=== PATIENT | female | born 1960 | race Caucasian/White ===

== ENCOUNTER 2022-09-06 10:48 | Inpatient (IN) | payer OTHER ==
--- NOTE | 2022-09-06 11:08 | ED ---
General Adult HPI - General Chief complaint: Syncope Stated complaint: Unresponsive Time Seen by Provider: 09/06/22 10:54 Source: patient, EMS, RN notes reviewed Mode of arrival: EMS Limitations: no limitations - History of Present Illness Initial comments: Patient is a pleasant 62-year-old female presenting to the emergency department for unresponsive episode. Patient was found by family unresponsive and cyanotic. EMS did provide oxygen and one nebulizer treatment with improvement of symptoms. 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 Patient is extremely difficult to understand. Family reports to EMS that her speech is normal for her. - Related Data Allergies Allergy/AdvReac Type Severity Reaction Status Date / Time No Known Allergies Allergy Verified 09/06/22 11:14 Review of Systems ROS Statement: Those systems with pertinent positive or pertinent negative responses have been documented in the HPI. ROS Other: All systems not noted in ROS Statement are negative. Limitations: ROS unobtainable due to patients medical condition Past Medical History Additional Past Medical History / Comment(s): throat cancer being tx since november, R History of Any Multi-Drug Resistant Organisms: None Reported Past Surgical History: Unable to Obtain Smoking Status: Unknown if ever smoked Past Alcohol Use History: Unable to Obtain Past Drug Use History: Unable to Obtain General Exam Limitations: no limitations General appearance: alert, in no apparent distress Head exam: Present: atraumatic Eye exam: Present: other (Right facial weakness that does appear to involve the eyelid) ENT exam: Present: normal oropharynx Neck exam: Present: normal inspection Respiratory exam: Present: normal lung sounds bilaterally Cardiovascular Exam: Present: tachycardia GI/Abdominal exam: Present: soft. Absent: tenderness Extremities exam: Present: pedal edema (+1 bilateral). Absent: calf tenderness Neurological exam: Present: alert Expanded Neurological exam: Present: other (Garbled speech) Motor strength exam: RUE: 5, LUE: 5, RLE: 5, LLE: 5 Eye Response: (4) open spontaneously Motor Response: (6) obeys commands Verbal Response: incomprehensible sounds Psychiatric exam: Present: normal affect, normal mood Skin exam: Present: normal color Course Vital Signs 09/06/22 09/06/22 09/06/22 10:50 12:13 12:30 Temperature 98.2 F Pulse Rate 126 H 105 H 112 H Respiratory 18 15 22 Rate Blood Pressure 132/94 77/49 79/59 O2 Sat by Pulse 98 83 L Oximetry 09/06/22 09/06/22 12:40 13:07 Temperature Pulse Rate 108 H Respiratory Rate Blood Pressure 99/56 74/51 O2 Sat by Pulse 98 Oximetry - Reevaluation(s) Reevaluation #1: 09/06/22 12:40 Patient reevaluated. Patient hypotensive and hypoxic. Patient is 94% on nonrebreather. Family updated and confirms patient's speech is normal. He is made aware of concerns for patient being extremely sick. Patient will be full code at this time. 09/06/22 14:50 There is concern for severe sepsis diagnosed at 1450. Blood culture and lactic acid have been ordered. IV antibiotics have been ordered. Fluid boluses has been provided. EKG Findings - EKG Results: EKG: interpreted by ERMD, sinus rhythm, normal axis, normal QRS, normal ST/T EKG shows: tachycardia Medical Decision Making - Medical Decision Making Patient reevaluated. Patient family is updated. Case also discussed with Dr. eduardo marquez, covering for hospital call, who will admit. Computed tomography scan will be ordered. Patient will go to ICU, Dr. Rose has been paged. cephid has been ordered. - Lab Data Result diagrams: 09/06/22 12:10 09/06/22 12:10 Lab Results 09/06/22 09/06/22 09/06/22 Range/Units 12:10 12:10 12:10 WBC (3.8-10.6) k/uL RBC (3.80-5.40) m/uL Hgb (11.4-16.0) gm/dL Hct (34.0-46.0) % MCV (80.0-100.0) fL MCH (25.0-35.0) pg MCHC (31.0-37.0) g/dL RDW (11.5-15.5) % Plt Count (150-450) k/uL MPV Neutrophils % (Manual) % Band Neuts % (Manual) % Lymphocytes % (Manual) % Monocytes % (Manual) % Metamyelocytes % % Myelocytes % % Neutrophils # (Manual) (1.3-7.7) k/uL Lymphocytes # (Manual) (1.0-4.8) k/uL Monocytes # (Manual) (0-1.0) k/uL Metamyelocytes # (Man) (0) k/uL Myelocytes # (Manual) (0) k/uL Nucleated RBCs (0-0) /100 WBC Manual Slide Review Polychromasia Hypochromasia Poikilocytosis Anisocytosis Macrocytosis PT 13.3 H (9.0-12.0) sec INR 1.3 H (<1.2) APTT 26.9 (22.0-30.0) sec D-Dimer 3.55 H (<0.60) mg/L FEU VBG pH (7.31-7.41) VBG pCO2 (37-51) mmHg VBG HCO3 (24-28) mmol/L Sodium 136 L (137-145) mmol/L Potassium 3.6 (3.5-5.1) mmol/L Chloride 100 (98-107) mmol/L Carbon Dioxide 30 (22-30) mmol/L Anion Gap 6 mmol/L BUN 19 H (7-17) mg/dL Creatinine 0.61 (0.52-1.04) mg/dL Est GFR (CKD-EPI)AfAm >90 (>60 ml/min/1.73 sqM) Est GFR (CKD-EPI)NonAf >90 (>60 ml/min/1.73 sqM) Glucose 94 (74-99) mg/dL POC Glucose (mg/dL) (70-110) mg/dL POC Glu Director [employer] ID Calcium 6.7 L (8.4-10.2) mg/dL Total Bilirubin 0.2 (0.2-1.3) mg/dL AST 41 H (14-36) U/L ALT 20 (4-34) U/L Alkaline Phosphatase 278 H (38-126) U/L Troponin I 0.253 H* (0.000-0.034) ng/mL Total Protein 4.5 L (6.3-8.2) g/dL Albumin 1.9 L (3.5-5.0) g/dL 09/06/22 09/06/22 09/06/22 Range/Units 12:10 12:10 12:24 WBC 36.5 H (3.8-10.6) k/uL RBC 1.89 L (3.80-5.40) m/uL Hgb 6.6 L* (11.4-16.0) gm/dL Hct 21.4 L (34.0-46.0) % MCV 113.4 H (80.0-100.0) fL MCH 35.1 H (25.0-35.0) pg MCHC 30.9 L (31.0-37.0) g/dL RDW 19.6 H (11.5-15.5) % Plt Count 133 L (150-450) k/uL MPV 9.5 Neutrophils % (Manual) 87 % Band Neuts % (Manual) 2 % Lymphocytes % (Manual) 2 % Monocytes % (Manual) 5 % Metamyelocytes % 3 % Myelocytes % 2 % Neutrophils # (Manual) 32.40 H (1.3-7.7) k/uL Lymphocytes # (Manual) 0.73 L (1.0-4.8) k/uL Monocytes # (Manual) 1.83 H (0-1.0) k/uL Metamyelocytes # (Man) 1.10 H (0) k/uL Myelocytes # (Manual) 0.73 H (0) k/uL Nucleated RBCs 3 H (0-0) /100 WBC Manual Slide Review Performed Polychromasia Present Hypochromasia Marked Poikilocytosis Slight Anisocytosis Slight Macrocytosis Marked A PT (9.0-12.0) sec INR (<1.2) APTT (22.0-30.0) sec D-Dimer (<0.60) mg/L FEU VBG pH 7.27 L (7.31-7.41) VBG pCO2 64 H (37-51) mmHg VBG HCO3 29 H (24-28) mmol/L Sodium (137-145) mmol/L Potassium (3.5-5.1) mmol/L Chloride (98-107) mmol/L Carbon Dioxide (22-30) mmol/L Anion Gap mmol/L BUN (7-17) mg/dL Creatinine (0.52-1.04) mg/dL Est GFR (CKD-EPI)AfAm (>60 ml/min/1.73 sqM) Est GFR (CKD-EPI)NonAf (>60 ml/min/1.73 sqM) Glucose (74-99) mg/dL POC Glucose (mg/dL) 88 (70-110) mg/dL POC Glu [employer] ID Maik Rodrigues Calcium (8.4-10.2) mg/dL Total Bilirubin (0.2-1.3) mg/dL AST (14-36) U/L ALT (4-34) U/L Alkaline Phosphatase (38-126) U/L Troponin I (0.000-0.034) ng/mL Total Protein (6.3-8.2) g/dL Albumin (3.5-5.0) g/dL Critical Care Time Critical Care Time: Yes Total Critical Care Time: 33 Disposition Clinical Impression: Pneumonitis, Respiratory failure, Anemia, Throat cancer Disposition: ADMITTED IP TO THIS HOSP Condition: Critical Is patient prescribed a controlled substance at d/c from ED?: No Referrals: None,Stated [Primary Care Provider] - 1-2 days Time of Disposition: 14:50
--- NOTE | 2022-09-06 11:49 | CT ---
EXAMINATION TYPE: CT brain wo con CT DLP: 1103.4 mGycm, Automated exposure control for dose reduction was used. DATE OF EXAM: 09/06/2022 11:33 AM COMPARISON: None. CLINICAL INDICATION:Female, 62 years old with history of Altered mental status, ams. Reported throat cancer. TECHNIQUE: Brain: Multiple axial CT images of the brain were obtained without IV contrast. Coronal sagittal refo rmats reviewed. FINDINGS: Brain: Extra-axial spaces: No abnormal extra-axial fluid collections. Ventricular system: Within normal limits Cerebral parenchyma: Cerebral atrophy. No acute intraparenchymal hemorrhage . Heterogenous masslike a ppearance in the right inferior middle cranial fossa with surrounding osseous structures and extensio n right mandibular space measuring grossly 4.7 x 4.5 x 4 cm. The duran-white junction is well differen tiated. Scattered hypoattenuating areas are seen within the white matter. Cerebellum: Unremarkable. Mass effect: No evidence of midline shift. Intracranial vasculature: Atherosclerotic calcifications of the intracranial vessels. Seems to be enc asement of the right internal carotid artery. Soft tissues: Normal. Calvarium/osseous structures: No depressed skull fracture. Osseous destruction of the right temporal bone and right sphenoid bone. Paranasal sinuses and mastoid air cells: Opacification of the right mastoid air cells. Erosive change s of the posterior wall of the right maxillary sinus. Visualized orbits: Orbital contents are intact. IMPRESSION: 1. No acute intracranial process. 2. Large soft tissue mass within the right middle cranial fossa with inferior extension into the rig ht mandible space with surrounding osseous destruction. This is likely related to reported cancer. Co rrelation with prior imaging is recommended.
--- NOTE | 2022-09-06 11:52 | XR ---
EXAMINATION TYPE: XR chest 2V DATE OF EXAM: 09/06/2022 11:41 AM COMPARISON: None TECHNIQUE: XR chest 2V Frontal and lateral views of the chest. CLINICAL INDICATION:Female, 62 years old with history of altered mental status; reported history of t hroat cancer. FINDINGS: Lungs/Pleura: No pneumothorax. Prominent interstitial lung markings with patchy airspace opacities wi thin the right upper and midlung. Possible right upper lung loculated effusion. Heart/mediastinum: Cardiomediastinal silhouette is unremarkable. Musculoskeletal: No acute osseous pathology. Other findings: None Lines/Tubes: Right chest IJ Mediport catheter with distal tip terminating at the superior cavoatrial junction. IMPRESSION: Diffuse interstitial prominent lung markings with patchy airspace opacities within the right upper an d midlung concerning for an infectious process. Underlying metastatic disease is not excluded.
[2022-09-06 12:26] LABS: Glucose,Whole Blood 88 mg/dL (70-110)
[2022-09-06] MEDS ORDERED: SODIUM CHLORIDE 0.9% 1,000 ML IV STA (12:32)
[2022-09-06 12:50] LABS: VBG PH 7.27 (7.31-7.41)
[2022-09-06] MEDS ORDERED: SODIUM CHLORIDE 0.9% 1,000 ML IV ONE (13:03)
[2022-09-06 13:05] LABS: INR 1.3 (<1.2); Partial Thromboplastin Time 26.9 sec (22.0-30.0); Prothrombin Time 13.3 sec (9.0-12.0)
[2022-09-06 13:09] LABS: Anisocytosis Slight; HCT 21.4 % (34.0-46.0); Hypochromasia Marked; MCH 35.1 pg (25.0-35.0); MCHC 30.9 g/dL (31.0-37.0); MCV 113.4 fL (80.0-100.0); Macrocytosis Marked; Mean Platelet Volume 9.5; Platelet Count 133 k/uL (150-450); Poikilocytosis Slight; RBC 1.89 m/uL (3.80-5.40); RDW 19.6 % (11.5-15.5)
[2022-09-06 13:12] LABS: HGB 6.6 gm/dL (11.4-16.0)
[2022-09-06] MEDS ORDERED: NOREPINEPHRINE 4 MG in SODIUM CHLORIDE 0.9% 250 ML IV ONE (13:13)
[2022-09-06 13:17] LABS: Band Neutrophils % 2 %; Lymphocytes # (M) 0.73 k/uL (1.0-4.8); Metamyelocytes % 3 %; Monocytes # (M) 1.83 k/uL (0-1.0); Myelocytes # (M) 0.73 k/uL (0); Myelocytes % 2 %; Neutrophils % (M) 87 %; Nucleated Red Blood Cells 3 /100 WBC (0-0); Total Cells Counted 200; WBC 36.5 k/uL (3.8-10.6)
[2022-09-06 13:18] LABS: Polychromasia Present
[2022-09-06 13:20] LABS: ALT 20 U/L (4-34); AST 41 U/L (14-36); African American GFR (CKD) >90 (>60 ml/min/1.73 sqM); Albumin 1.9 g/dL (3.5-5.0); Alkaline Phosphatase 278 U/L (38-126); Anion Gap 6 mmol/L; Blood Urea Nitrogen 19 mg/dL (7-17); Calcium 6.7 mg/dL (8.4-10.2); Carbon Dioxide 30 mmol/L (22-30); Chloride 100 mmol/L (98-107); Glucose 94 mg/dL (74-99); Non-African American GFR(CKD) >90 (>60 ml/min/1.73 sqM); Potassium 3.6 mmol/L (3.5-5.1); Sodium 136 mmol/L (137-145); Total Bilirubin 0.2 mg/dL (0.2-1.3); Total Protein 4.5 g/dL (6.3-8.2)
[2022-09-06] MEDS ORDERED: VANCOMYCIN IV PER PHARMACY 1 EACH MISC MISCELLANE PRN ×2 (14:48→18:41)
[2022-09-06] MEDS ORDERED: PIPERACILLIN-TAZOBACTAM 3.375 GM in SODIUM CHLORIDE 0.9% 100 ML IVPB STA (14:48)
[2022-09-06] MEDS ORDERED: ACETAMINOPHEN TAB 325 MG TAB PO PRN (14:52)
[2022-09-06] MEDS ORDERED: NALOXONE 0.4 MG/ML 1 ML VIAL IV PRN (14:52)
[2022-09-06] MEDS ORDERED: IPRATROPIUM-ALBUTEROL 3 ML NEB INHALATION PRN (14:52)
[2022-09-06] MEDS ORDERED: VANCOMYCIN 750 MG in SODIUM CHLORIDE 0.9% 250 ML IVPB ONE (15:30)
--- NOTE | 2022-09-06 16:15 | CT ---
EXAMINATION TYPE: CT angio chest DATE OF EXAM: 09/06/2022 COMPARISON: Radiograph same day HISTORY: 62-year-old female with dyspnea, SOB, elevated d-dimer TECHNIQUE: Contiguous axial scanning of the chest performed with IV Contrast, patient injected with 8 0cc mL of Isovue 370. Coronal/sagittal MIP reconstructions performed. CT DLP: 208.6 mGycm Automated exposure control for dose reduction was used. FINDINGS: Right anterior chest wall injection port with catheter tip at the lower SVC. Heart upper limits of normal in size without pericardial effusion. No reflux of contrast into the hep atic veins. LAD and RCA coronary calcifications are present. There is variant direct takeoff of the left vertebral artery directly from the aortic arch. There corrie ears to be mild to moderate atherosclerotic narrowing at the origin of the left subclavian artery. Suggestion of hilar lymph nodes measuring up to 1.6 cm on the right, 1.8 cm on the left, and 1.5 cm i n the subcarinal region. 8 mm right paratracheal. Satisfactory opacification of the pulmonary arterial system without evidence for pulmonary embolus. There is extensive consolidation throughout the right upper lobe and patchy peripheral areas of airsp yaneth disease throughout the remainder of the lungs. Areas of groundglass and tree-in-bud opacities are present throughout as well. Possible early cavitation right apex and anterior right upper lobe, axial image 67. Endobronchial opa cification scattered throughout the right lower lobe. PEG tube is noted. Otherwise, visualized upper abdomen shows no gross adenopathy. Bones: No osseous destructive process. IMPRESSION: 1. NO EVIDENCE FOR PULMONARY EMBOLUS. 2. SEVERE AIRSPACE DISEASE RIGHT UPPER LOBE. THE REMAINDER OF THE LUNGS ALSO SHOWS EXTENSIVE DISEASE WITH PERIPHERAL OPACITIES, GROUNDGLASS, AND TREE-IN-BUD OPACITIES. POSSIBLE EARLY CAVITARY CHANGE RIG HT APEX AND ANTERIOR RIGHT UPPER LOBE. CORRELATE FOR ATYPICAL MYCOBACTERIAL OR FUNGAL INFECTION, EXTE NSIVE MULTIFOCAL PNEUMONIA, OR ASPIRATION PNEUMONITIS. RECOMMEND FURTHER EVALUATION BY PULMONARY MEDI CINE. 3. SCATTERED ENDOBRONCHIAL OPACIFICATION/MUCOID DEBRIS WITHIN THE LOWER LOBES.
--- NOTE | 2022-09-06 16:18 | P.HPIM ---
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 On arrival to the ER vital signs showed tachycardia with a pulse of 126 initially her blood pressure was normal but quickly dropped to 73/48. Initial laboratory analysis showed white blood cell count 36.5, hemoglobin 6.6, platelets 133, INR 1.3, d-dimer 3.55, troponin 0.253, alkaline phosphatase 278, serum albumin 1.9, calcium 6.7. VBG showed a pH of 7.27 with a pCO2 of 64. Influenza A/B/RSV/COVID-[address] head showed large soft tissue mass in the right middle cranial fossa with extension into the right mandibular space was surrounding osseous structure. CTA of the chest showed severe airspace disease within the right upper lobe with the remainder of the lungs showing extensive disease and tree and bud appearance, possible early cavitary changes in the right aspect packs and right upper lobe. Correlate for atypical mycobacterial or fungal infection or extensive pneumonia. Scattered endobronchial opacifications/mucoid debris in the lower lobes. The ER she was given 2 L of normal saline but remained hypotensive and required levo. She was started on Vanco and Zosyn. One unit of packed red blood cells was ordered. Arrangements are made for admission to the ICU. Dr. Jones was contacted. Patient seen and examined at bedside. Patient is unable to speak and recounts history. had a hard time getting her up this morning at 5 am, then at 9 am she was less responsive with deep respirations. Yesterday she was a little groggy. Had vomiting the last few days. Typically patient has a hard time speaking,but is able to communicate properly via wrting in sentences. Usually walks independently. has to dress her and preform peg tube feedings. He does a ADLS. Squamous cell cancer in the tongue that is now behind the right eye, recent PET scan that was negative except for lesion near eye. Last chemo was [address] Linus Cohen (fax [phone])- record request sent. Tube Feeds: Neutro 2.0- 3 cans daily, free water 8 oz every 4 hours. Pertinent positives and negatives as discussed in HPI, a complete review of systems was performed and all other systems are negative. Vital signs reviewed General: Ill-appearing, moderate distress, appears at stated age Derm: warm, dry Head: Right eye with proptosis, extraocular motion intact on left, no abrasions noted Eyes: EOMI, no lid lag, anicteric sclera, pupils equal round reactive to light ENT: Nose and ears atraumatic, no thrush, no pharyngeal erythema Neck: No thyromegaly, no cervical lymphadenopathy, trachea midline, supple Mouth: no lip lesion, mucus membranes moist Cardiovascular: S1S2 reg, no murmur, positive posterior tibial pulse bilateral, 2+ pitting edema, capillary refill greater than 2 seconds Lungs: Coarse breath sounds bilateral, no wheeze, no accessory muscle use Abdominal: soft, nontender to palpation, no guarding, no appreciable organomegaly, normal bowel sounds Ext: no gross muscle atrophy, no contractures Neuro: Pupil reactive to light on left, unable to test pupil on the right, proptosis of right eye, extraocular motion intact on the left eye, loss of wrinkles on right forehead, patient is unable to open mouth far enough to check for uvula elevation, no tongue deviation noted but patient does not protrude tongue far enough for appropriate evaluation, light touch intact all 4 ext remities, unable to perform finger to nose but moving all 4 extremities independently Psych: Awake, patient is not verbal at baseline, appears euthymic Assessment/Plan: Pneumonia, possible gram-negative or MRSA related with recent chemo Septic shock Acute hypoxic respiratory failure Acute metabolic encephalopathy -Concerns for possible aspiration event with recent vomiting -Victor Manuel Garcia -Serum culture if able -Critical care recommendations case discussed with Dr. Jones -IV fluids -Levo Anemia, unknown cause Thrombocytopenia - possibly chemo related -1 unit packed red blood cells -Follow CBC Severe protein calorie malnutrition -Resume tube feeds in a.m. -Dietitian consultation Squamous cell carcinoma of the tongue with metastasis - attempt to obtain records from oncologist's office -Consult oncology Elevated troponin -Likely secondary to demand ischemia -Repeat troponin -We'll not initiate heparin at this time given no overt signs of chest disc omfort, EKG without signs of ischemia, and hemoglobin 6.6. The patient is admitted with an anticipated greater than 2 midnight stay for evaluation of [Pneumonia with sepsis]. Surrogate decision-maker: CODE STATUS: Full, no prolonged mechanical ventilation DVT prophylaxis: SCDs Discussed with: patient, , ED provider, Dr. Mcdaniel Anticipated discharge date: pending clinical course Anticipated discharge place: pending clinical course A total of 75 minutes was spent on the care of this complex patient more than 50% of the time was spent in counseling and care coordination. 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 with mets to the eye, bellspalsy R History of Any Multi-Drug Resistant Organisms: None Reported Additional Past Surgical History / Comment(s): peg tube, mediprot Smoking Status: Former smoker (quit 2021) Past Alcohol Use History: None Reported (hx of heavy ETOH use till November 2021) Past Drug Use History: Unable to Obtain - Past Family History family Additional Family Medical History / Comment(s): no hx of head and neck cancer at home Medications and Allergies Home Medications Medication Instructions Recorded Confirmed Type Acetaminophen Oral Susp [Tylenol] 480 mg PEG/G-TUBE Q4H 09/06/22 09/06/22 History Famotidine [Pepcid] 20 mg PEG/G-TUBE DAILY PRN 09/06/22 09/06/22 History Gabapentin [Gabapentin Oral Soln] 250 mg PEG/G-TUBE TID 09/06/22 09/06/22 History Loperamide HCl [Loperamide HCl 1.33 mg PEG/G-TUBE Q6H PRN 09/06/22 09/06/22 History Oral Susp] Methadone HCl [Methadone Intensol] 10 mg PEG/G-TUBE Q8H 09/06/22 09/06/22 History Metoclopramide [Reglan] 10 mg PEG/G-TUBE Q6H PRN 09/06/22 09/06/22 History OLANZapine ODT [ZyPREXA ZYDIS] 10 mg PEG/G-TUBE DIRECTED 09/06/22 09/06/22 History Oxycodone 5mg/5ml 15 mg PEG/G-TUBE Q4H 09/06/22 09/06/22 History Allergies Allergy/AdvReac Type Severity Reaction Status Date / Time No Known Allergies Allergy Verified 09/06/22 11:14 Physical Exam Osteopathic Statement: *. No significant issues noted on an osteopathic structural exam other than those noted in the History and Physical/Consult. Vitals: Vital Signs Temp Pulse Resp BP Pulse Ox 09/06/22 15:00 101 H 12 79/54 100 09/06/22 14:00 101 H 11 L 78/54 100 09/06/22 13:07 74/51 09/06/22 12:40 108 H 99/56 98 09/06/22 12:30 112 H 22 79/59 83 L 09/06/22 12:13 105 H 15 77/49 98 09/06/22 10:50 98.2 F 126 H 18 132/94 Intake and Output 09/06/22 09/06/22 09/06/22 06:59 14:59 22:59 Intake Total 2.964 14.366 Balance 2.964 14.366 Intake: Intake, IV Titration 2.964 14.366 Amount Norepinephrine 4 mg In 2.964 14.366 Sodium Chloride 0.9% 250 ml @ 0.03 MCG/KG/MIN 5. 444 mls/hr IV .Q24H ONE Rx#:[id number] Other: Weight 47.627 kg Results CBC & Chem 7: 09/06/22 12:10 09/06/22 12:10 Labs: Abnormal Lab Results - Last 24 Hours (Table) 09/06/22 09/06/22 09/06/22 Range/Units 12:10 12:10 12:10 WBC (3.8-10.6) k/uL RBC (3.80-5.40) m/uL Hgb (11.4-16.0) gm/dL Hct (34.0-46.0) % MCV (80.0-100.0) fL MCH (25.0-35.0) pg MCHC (31.0-37.0) g/dL RDW (11.5-15.5) % Plt Count (150-450) k/uL Neutrophils # (Manual) (1.3-7.7) k/uL Lymphocytes # (Manual) (1.0-4.8) k/uL Monocytes # (Manual) (0-1.0) k/uL Metamyelocytes # (Man) (0) k/uL Myelocytes # (Manual) (0) k/uL Nucleated RBCs (0-0) /100 WBC Macrocytosis PT 13.3 H (9.0-12.0) sec INR 1.3 H (<1.2) D-Dimer 3.55 H (<0.60) mg/L FEU VBG pH (7.31-7.41) VBG pCO2 (37-51) mmHg VBG HCO3 (24-28) mmol/L Sodium 136 L (137-145) mmol/L BUN 19 H (7-17) mg/dL Calcium 6.7 L (8.4-10.2) mg/dL AST 41 H (14-36) U/L Alkaline Phosphatase 278 H (38-126) U/L Troponin I 0.253 H* (0.000-0.034) ng/mL Total Protein 4.5 L (6.3-8.2) g/dL Albumin 1.9 L (3.5-5.0) g/dL 09/06/22 09/06/22 Range/Units 12:10 12:10 WBC 36.5 H (3.8-10.6) k/uL RBC 1.89 L (3.80-5.40) m/uL Hgb 6.6 L* (11.4-16.0) gm/dL Hct 21.4 L (34.0-46.0) % MCV 113.4 H (80.0-100.0) fL MCH 35.1 H (25.0-35.0) pg MCHC 30.9 L (31.0-37.0) g/dL RDW 19.6 H (11.5-15.5) % Plt Count 133 L (150-450) k/uL Neutrophils # (Manual) 32.40 H (1.3-7.7) k/uL Lymphocytes # (Manual) 0.73 L (1.0-4.8) k/uL Monocytes # (Manual) 1.83 H (0-1.0) k/uL Metamyelocytes # (Man) 1.10 H (0) k/uL Myelocytes # (Manual) 0.73 H (0) k/uL Nucleated RBCs 3 H (0-0) /100 WBC Macrocytosis Marked A PT (9.0-12.0) sec INR (<1.2) D-Dimer (<0.60) mg/L FEU VBG pH 7.27 L (7.31-7.41) VBG pCO2 64 H (37-51) mmHg VBG HCO3 29 H (24-28) mmol/L Sodium (137-145) mmol/L BUN (7-17) mg/dL Calcium (8.4-10.2) mg/dL AST (14-36) U/L Alkaline Phosphatase (38-126) U/L Troponin I (0.000-0.034) ng/mL Total Protein (6.3-8.2) g/dL Albumin (3.5-5.0) g/dL
--- NOTE | 2022-09-06 16:45 | P.CNPUL ---
History of Present Illness Consult date: 09/06/22 Requesting physician: Cris Osman Chief complaint: ICU management. History of present illness: Pulmonary/critical care consultation dated 09/06/2022. 62-year-old female seen by Dr. Diego in the emergency room, for loss of consciousness. She was seen initially at 10:48 AM, today. The patient apparently was found to be unresponsive, and EMS was called, she was apparently cyanotic and unresponsive. Oxygen was provided and the patient apparently improved. 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 The patient was very difficult to understand according to the ER physician. Most of the history apparently was obtained from the family member. The patient was discovered to have hypotension, was given 2 L of fluid, and started on norepinephrine. The patient is currently seeing an ER, trauma 2. The patient is on a nonrebreather mask, and getting norepinephrine at 0.061 mcg/kg/m. She was given Zosyn and vancomycin. Home medications included Tylenol, methadone, loperamide, oxycodone, gabapentin, Reglan, Zyprexa, and Pepcid. She has no known ALLERGIES. Laboratory data includes a white count of 36.5, hemoglobin 6.6, hematocrit 2 1.4, and a platelet count of 133,000. PT 13.3, INR 1.3, and d-dimer was 3.55. Venous blood gas showed a CO2 of 64, and a pH is 7.27. Sodium 136, potassium 3.6, chlorides 100, CO2 30, BUN 19, creatinine 0.61. Troponin was 0.253. Albumin 1.9. Testing for influenza, respiratory syncytial virus, and coronavirus, were all negative. Brain CT showed a large soft tissue mass within the right middle cranial fossa with inferior extension into the right mandible space with surrounding osseous destruction. Chest x-ray shows diffuse abnormalities throughout both lungs, more right-sided than left-sided, and more extensive consolidation particularly in the right upper lobe. CT angiogram was negative for pulmonary embolism, but did show bilateral airspace disease, with the greatest degree of consolidation, in the right upper lobe. Review of Systems REVIEW OF SYSTEMS: No review of systems could be obtained from the patient. CONSTITUTIONAL: [Negative.] NEUROLOGIC: Unresponsiveness. HEENT: Right facial droop. CARDIAC: [Negative.] PULMONARY: Cyanosis. GI: [Negative.] : [Negative.] RHEUMATOLOGIC: [ Negative.] IMMUNOLOGIC: [ Negative.] ENDOCRINE: [Negative. 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, bellspalsy R History of Any Multi-Drug Resistant Organisms: None Reported Past Surgical History: Unable to Obtain Additional Past Surgical History / Comment(s): peg tube, mediprot Smoking Status: Former smoker (quit 2021) Past Alcohol Use History: None Reported (hx of heavy ETOH use till November 2021) Past Drug Use History: Unable to Obtain - Past Family History family Additional Family Medical History / Comment(s): no hx of head and neck cancer at home Medications and Allergies Home Medications Medication Instructions Recorded Confirmed Type Acetaminophen Oral Susp [Tylenol] 480 mg PEG/G-TUBE Q4H 09/06/22 09/06/22 History Famotidine [Pepcid] 20 mg PEG/G-TUBE DAILY PRN 09/06/22 09/06/22 History Gabapentin [Gabapentin Oral Soln] 250 mg PEG/G-TUBE TID 09/06/22 09/06/22 History Loperamide HCl [Loperamide HCl 1.33 mg PEG/G-TUBE Q6H PRN 09/06/22 09/06/22 History Oral Susp] Methadone HCl [Methadone Intensol] 10 mg PEG/G-TUBE Q8H 09/06/22 09/06/22 History Metoclopramide [Reglan] 10 mg PEG/G-TUBE Q6H PRN 09/06/22 09/06/22 History OLANZapine ODT [ZyPREXA ZYDIS] 10 mg PEG/G-TUBE DIRECTED 09/06/22 09/06/22 History Oxycodone 5mg/5ml 15 mg PEG/G-TUBE Q4H 09/06/22 09/06/22 History Allergies Allergy/AdvReac Type Severity Reaction Status Date / Time No Known Allergies Allergy Verified 09/06/22 11:14 Physical Exam Osteopathic Statement: *. No significant issues noted on an osteopathic structural exam other than those noted in the History and Physical/Consult. Vitals: Vital Signs Temp Pulse Resp BP Pulse Ox 09/06/22 16:00 101 H 5 L 87/55 93 L 09/06/22 15:00 101 H 12 79/54 100 09/06/22 14:00 101 H 11 L 78/54 100 09/06/22 13:07 74/51 09/06/22 12:40 108 H 99/56 98 09/06/22 12:30 112 H 22 79/59 83 L 09/06/22 12:13 105 H 15 77/49 98 09/06/22 10:50 98.2 F 126 H 18 132/94 Intake and Output 09/06/22 09/06/22 09/06/22 06:59 14:59 22:59 Intake Total 2.964 14.366 Balance 2.964 14.366 Intake: Intake, IV Titration 2.964 14.366 Amount Norepinephrine 4 mg In 2.964 14.366 Sodium Chloride 0.9% 250 ml @ 0.03 MCG/KG/MIN 5. 444 mls/hr IV .Q24H [facility] Rx#:[id number] Other: Weight 47.627 kg No acute distress, poorly responsive, currently on a nonrebreather. HEENT examination reveals a right facial droop. Neck supple. Full range of motion. No adenopathy thyromegaly or neck vein distention. Cardiovascular examination reveals regular rhythm rate. S1-S2 normal. No S3 or S4. No discernible murmur noted. Heart sounds are distant. Heart rate 101 bpm. The patient has a port in the right chest area. Lungs reveal scattered diffuse rhonchi. The patient does not take deep breaths. No wheezes. No crackles. Saturations are 93% on the nonrebreather. Abdomen soft, without bowel sounds. Extremities are intact. No cyanosis or clubbing. 1+ edema is noted in the lower extremities. Skin is without rash or lesion. Neurologic examination cannot be adequately assessed. Results - Laboratory Findings CBC and BMP: 09/06/22 12:10 09/06/22 12:10 PT/INR, D-dimer PT 13.3 sec (9.0-12.0) H 09/06/22 12:10 INR 1.3 (<1.2) H 09/06/22 12:10 D-Dimer 3.55 mg/L FEU (<0.60) H 09/06/22 12:10 Abnormal lab findings: Abnormal Labs 09/06/22 09/06/22 09/06/22 12:10 12:10 12:10 WBC RBC Hgb Hct MCV MCH MCHC RDW Plt Count Neutrophils # (Manual) Lymphocytes # (Manual) Monocytes # (Manual) Metamyelocytes # (Man) Myelocytes # (Manual) Nucleated RBCs Macrocytosis PT 13.3 H INR 1.3 H D-Dimer 3.55 H VBG pH VBG pCO2 VBG HCO3 Sodium 136 L BUN 19 H Calcium 6.7 L AST 41 H Alkaline Phosphatase 278 H Troponin I 0.253 H* Total Protein 4.5 L Albumin 1.9 L 09/06/22 09/06/22 12:10 12:10 WBC 36.5 H RBC 1.89 L Hgb 6.6 L* Hct 21.4 L MCV 113.4 H MCH 35.1 H MCHC 30.9 L RDW 19.6 H Plt Count 133 L Neutrophils # (Manual) 32.40 H Lymphocytes # (Manual) 0.73 L Monocytes # (Manual) 1.83 H Metamyelocytes # (Man) 1.10 H Myelocytes # (Manual) 0.73 H Nucleated RBCs 3 H Macrocytosis Marked A PT INR D-Dimer VBG pH 7.27 L VBG pCO2 64 H VBG HCO3 29 H Sodium BUN Calcium AST Alkaline Phosphatase Troponin I Total Protein Albumin - Diagnostic Findings Chest x-ray: image reviewed Assessment and Plan Assessment: Acute mental status changes, with cyanosis, likely related to sepsis, and extensive bilateral pneumonia. 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 Acute hypotension, secondary to sepsis. Anemia. Thrombocytopenia. Respiratory acidosis. Severe hypoalbuminemia. Plan: Plan dated 09/06/2022. The patient is seen in the emergency department. The patient's currently on norepinephrine. She was given both Zosyn and vancomycin for pneumonia. She is on a nonrebreather mask. The patient was initially found to be unresponsive, with cyanosis. Currently, according to the hospital service, she is a full code. Labs, x-rays, and medications are reviewed. Some consideration should be given to transferring the patient to her facility of record. We will continue to follow make recommendations along the way. Time with Patient: Greater than 30
[2022-09-06] MEDS: IPRATROPIUM-ALBUTEROL 3 ML NEB INHALATION SCH ×3 (17:30→23:49)
[2022-09-06] MEDS ORDERED: bisacodyL 10 MG SUPP RECTAL PRN (18:37)
[2022-09-06] MEDS ORDERED: MORPHINE SULFATE 4 MG/ML SYRINGE IVP PRN (18:37)
[2022-09-06] MEDS ORDERED: LORazepam 2 MG/ML INJ IV PRN (18:37)
[2022-09-06] MEDS ORDERED: ONDANSETRON 4 MG/2 ML VIAL IVP PRN (18:37)
[2022-09-06] MEDS ORDERED: PNEUMONIA PROTOCOL UTILIZED 1 EACH MISC PO PRN (18:37)
[2022-09-06] MEDS ORDERED: MELATONIN 3 MG TABLET PEG/G-TUBE PRN (18:37)
[2022-09-06] MEDS ORDERED: FAMOTIDINE 20 MG TAB PEG/G-TUBE PRN (18:46)
[2022-09-06] MEDS ORDERED: METOCLOPRAMIDE 10 MG TAB PEG/G-TUBE PRN (18:46)
[2022-09-06] MEDS: OXYCODONE PEG/G-TUBE SCH (19:52)
[2022-09-06 21:05] LABS: Glucose,Whole Blood 92 mg/dL (70-110)
[2022-09-06 22:08] LABS: Anisocytosis Moderate; HCT 28.6 % (34.0-46.0); Hypochromasia Marked; MCH 33.8 pg (25.0-35.0); MCHC 32.6 g/dL (31.0-37.0); Macrocytosis Marked; Mean Platelet Volume 8.5; Platelet Count 148 k/uL (150-450); Poikilocytosis Moderate; RBC 2.76 m/uL (3.80-5.40); RDW 23.2 % (11.5-15.5)
[2022-09-06 22:09] LABS: HGB 9.3 gm/dL (11.4-16.0)
[2022-09-06 22:10] LABS: MCV 103.7 fL (80.0-100.0)
[2022-09-06 22:22] LABS: African American GFR (CKD) >90 (>60 ml/min/1.73 sqM); Anion Gap 5 mmol/L; Blood Urea Nitrogen 20 mg/dL (7-17); Calcium 7.4 mg/dL (8.4-10.2); Carbon Dioxide 29 mmol/L (22-30); Chloride 105 mmol/L (98-107); Glucose 88 mg/dL (74-99); Non-African American GFR(CKD) >90 (>60 ml/min/1.73 sqM); Potassium 3.9 mmol/L (3.5-5.1); Sodium 139 mmol/L (137-145)
[2022-09-06] MEDS: GABAPENTIN 300 MG/6 ML PEG/G-TUBE SCH (23:08)
[2022-09-06 23:26] LABS: Metamyelocytes % 2 %; Neutrophils % (M) 93 %; Nucleated Red Blood Cells 3 /100 WBC (0-0); Total Cells Counted 200
[2022-09-06 23:27] LABS: Lymphocytes # (M) 1.71 k/uL (1.0-4.8); Metamyelocytes # (M) 0.86 k/uL (0); Monocytes # (M) 0.86 k/uL (0-1.0); Polychromasia Present; WBC 42.8 k/uL (3.8-10.6)
[2022-09-06] MEDS: PIPERACILLIN-TAZOBACTAM 3.375 GM in SODIUM CHLORIDE 0.9% 100 ML IVPB SCH (23:32)
[2022-09-07] MEDS: OXYCODONE PEG/G-TUBE SCH ×5 (01:15→21:16)
[2022-09-07] MEDS: VANCOMYCIN 750 MG in SODIUM CHLORIDE 0.9% 250 ML IVPB SCH ×2 (05:00→16:24)
[2022-09-07] MEDS: IPRATROPIUM-ALBUTEROL 3 ML NEB INHALATION SCH ×4 (05:15→20:51)
[2022-09-07 06:33] LABS: Anisocytosis Moderate; HCT 28.8 % (34.0-46.0); HGB 9.4 gm/dL (11.4-16.0); Hypochromasia Moderate; MCH 33.7 pg (25.0-35.0); MCHC 32.8 g/dL (31.0-37.0); MCV 102.8 fL (80.0-100.0); Macrocytosis Marked; Mean Platelet Volume 8.8; Platelet Count 138 k/uL (150-450); Poikilocytosis Moderate; RDW 23.6 % (11.5-15.5)
[2022-09-07 06:43] LABS: ALT 18 U/L (4-34); AST 46 U/L (14-36); African American GFR (CKD) >90 (>60 ml/min/1.73 sqM); Albumin 2.1 g/dL (3.5-5.0); Alkaline Phosphatase 336 U/L (38-126); Anion Gap 7 mmol/L; Blood Urea Nitrogen 19 mg/dL (7-17); Calcium 7.5 mg/dL (8.4-10.2); Carbon Dioxide 29 mmol/L (22-30); Chloride 104 mmol/L (98-107); Glucose 84 mg/dL (74-99); Non-African American GFR(CKD) >90 (>60 ml/min/1.73 sqM); Phosphorus 2.9 mg/dL (2.5-4.5); Potassium 3.2 mmol/L (3.5-5.1); Sodium 140 mmol/L (137-145); Total Bilirubin 0.2 mg/dL (0.2-1.3); Total Protein 5.1 g/dL (6.3-8.2)
--- NOTE | 2022-09-07 07:11 | XR ---
EXAMINATION TYPE: XR chest 1V DATE OF EXAM: 09/07/2022 5:28 AM COMPARISON: Chest radiograph from one day prior. TECHNIQUE: XR chest 1V Portable AP radiograph of the chest. CLINICAL INDICATION:Female, 62 years old with history of dyspnea; FINDINGS: Lungs/Pleura: Similar multifocal airspace opacities. More focal area in the right lung apex. No evide nce of pneumothorax or pleural effusion. Pulmonary vascularity: Unremarkable. Heart/mediastinum: Cardiomediastinal silhouette is unremarkable. Musculoskeletal: No acute osseous pathology. Other findings: None Lines/Tubes: Right internal jugular central venous catheter with distal tip at the cavoatrial junction. IMPRESSION: Similar multifocal airspace opacities.
[2022-09-07] MEDS ORDERED: Potassium Replacement Protocol 1 EACH MISC MISCELLANE PRN (07:46)
[2022-09-07 08:12] LABS: Band Neutrophils % 2 %; Lymphocytes # (M) 1.82 k/uL (1.0-4.8); Monocytes # (M) 1.37 k/uL (0-1.0); Myelocytes # (M) 0.46 k/uL (0); Myelocytes % 1 %; Neutrophils % (M) 91 %; Nucleated Red Blood Cells 1 /100 WBC (0-0); Total Cells Counted 200; WBC 45.5 k/uL (3.8-10.6)
[2022-09-07 08:13] LABS: Mixed Population RBC Present; Polychromasia Present
[2022-09-07] MEDS: PANTOPRAZOLE 40 MG/10 ML VIAL IV SCH (08:15)
[2022-09-07] MEDS: PIPERACILLIN-TAZOBACTAM 3.375 GM in SODIUM CHLORIDE 0.9% 100 ML IVPB SCH ×2 (08:15→16:24)
[2022-09-07] MEDS: POTASSIUM BICARBONATE/CIT AC 20 MEQ TABLET.EFF NG-TUBE SCH ×2 (09:10→11:28)
[2022-09-07] MEDS: ENOXAPARIN 40 MG/0.4 ML SYRINGE SQ SCH ×2 (09:10→11:28)
[2022-09-07] MEDS: GABAPENTIN 300 MG/6 ML PEG/G-TUBE SCH (10:51)
--- NOTE | 2022-09-07 11:19 | P.PN ---
Subjective Progress Note Date: 09/07/22 Principal diagnosis: Pneumonia. Pulmonary/critical care consultation dated 09/06/2022. 62-year-old female seen by Dr. Diego in the emergency room, for loss of consciousness. She was seen initially at 10:48 AM, today. The patient apparently was found to be unresponsive, and EMS was called, she was apparently cyanotic and unresponsive. Oxygen was provided and the patient apparently improved. 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 The patient was very difficult to understand according to the ER physician. Most of the history apparently was obtained from the family member. The patient was discovered to have hypotension, was given 2 L of fluid, and started on norepinephrine. The patient is currently seeing an ER, trauma 2. The patient is on a nonrebreather mask, and getting norepinephrine at 0.061 mcg/kg/m. She was given Zosyn and vancomycin. Home medications included Tylenol, methadone, loperamide, oxycodone, gabapentin, Reglan, Zyprexa, and Pepcid. She has no known ALLERGIES. Laboratory data includes a white count of 36.5, hemoglobin 6.6, hematocrit 21.4, and a platelet count of 133,000. PT 13.3, INR 1.3, and d-dimer was 3.55. Venous blood gas showed a CO2 of 64, and a pH is 7.27. Sodium 136, potassium 3.6, chlorides 100, CO2 30, BUN 19, creatinine 0.61. Troponin was 0.253. Albumin 1.9. Testing for influenza, respiratory syncytial virus, and coronavirus, were all negative. Brain CT showed a large soft tissue mass within the right middle cranial fossa with inferior extension into the right mandible space with surrounding osseous destruction. Chest x-ray shows diffuse abnormalities throughout both lungs, more right-sided than left-sided, and more extensive consolidation particularly in the right upper lobe. CT angiogram was negative for pulmonary embolism, but did show bilateral airspace disease, with the greatest degree of consolidation, in the right upper lobe. Progress note dated 09/07/2022. The patient is seen today in room 262. She was seen in consultation yesterday, in the emergency department. She's currently on 6 L of oxygen. She's getting saline at 20 mL an hour, and norepinephrine at 4 mcg/m. She is also on Zosyn and vancomycin diffuse bilateral pneumonia. Clinically, she's about the same. She had an uneventful night according to the nurse. White count 45.5, hemoglobin 9.4, hematocrit 28.8, platelet count 238,000. Opium 140, potassium 3.2, chlorides 104, CO2 29, BUN 19, and creatinine 0.34. The rest of the labs look unremarkable save for an albumin of 2.1. Chest x-ray shows diffuse bilateral airspace disease. Chest x-ray is essentially unchanged, with most of the abnormality occurring in the right upper lobe. Objective - Vital Signs Vital signs: Vital Signs Temp 98.5 F 09/07/22 04:00 Pulse 89 09/07/22 10:00 Resp 14 09/07/22 10:00 BP 120/62 09/07/22 10:00 Pulse Ox 94 L 09/07/22 10:00 FiO2 Intake & Output 09/06/22 09/07/22 09/07/22 18:59 06:59 18:59 Intake Total 33.843 873.381 266.776 Output Total 820 Balance 33.843 53.381 266.776 Weight 47.627 kg 44.2 kg 44.2 kg Intake: IV 455 80 KVO 80 30 Piperacillin-Tazobactam 3 125 50 .375 gm In Sodium Chloride 0.9% 100 ml @ 25 mls/hr IVPB Q8HR [facility] Rx# :[id number] Vancomycin 750 mg In 250 Sodium Chloride 0.9% 250 ml @ 125 mls/hr IVPB ONCE ONE Rx#:[id number] Intake, IV Titration 33.843 108.381 186.776 Amount Norepinephrine 4 mg In 33.843 108.381 111.776 Sodium Chloride 0.9% 250 ml @ 0.03 MCG/KG/MIN 5. 444 mls/hr IV .Q24H [facility] Rx#:[id number] Sodium Chloride 0.9% 1, 75 000 ml @ 75 mls/hr IV . [id number] [facility] Rx#:[id number] Blood Product 0 310 Rc As-1 Unit 0 310 [id number] Output: Urine 820 Other: Voiding Method Bedside Commode # Voids 0 0 # Bowel Movements 0 0 - Exam No acute distress, poorly responsive, currently on 6 L nasal cannula. HEENT examination reveals a right facial droop. Neck supple. Full range of motion. No adenopathy thyromegaly or neck vein distention. Cardiovascular examination reveals regular rhythm rate. S1-S2 normal. No S3 or S4. No discernible murmur noted. Heart sounds are distant. Heart rate 89 bpm. The patient has a port in the right chest area. Lungs reveal scattered diffuse rhonchi. The patient does not take deep breaths. No wheezes. No crackles. Saturations are 94% on 6 L nasal cannula. Abdomen soft, without bowel sounds. Extremities are intact. No cyanosis or clubbing. 1+ edema is noted in the lower extremities. Skin is without rash or lesion. Neurologic examination is unchanged. - Labs CBC & Chem 7: 09/07/22 05:49 09/07/22 05:49 Labs: Abnormal Lab Results - Last 24 Hours (Table) 09/06/22 09/06/22 09/06/22 Range/Units 12:10 12:10 12:10 WBC (3.8-10.6) k/uL RBC (3.80-5.40) m/uL Hgb (11.4-16.0) gm/dL Hct (34.0-46.0) % MCV (80.0-100.0) fL MCH (25.0-35.0) pg MCHC (31.0-37.0) g/dL RDW (11.5-15.5) % Plt Count (150-450) k/uL Neutrophils # (Manual) (1.3-7.7) k/uL Lymphocytes # (Manual) (1.0-4.8) k/uL Monocytes # (Manual) (0-1.0) k/uL Metamyelocytes # (Man) (0) k/uL Myelocytes # (Manual) (0) k/uL Nucleated RBCs (0-0) /100 WBC Macrocytosis PT 13.3 H (9.0-12.0) sec INR 1.3 H (<1.2) D-Dimer 3.55 H (<0.60) mg/L FEU VBG pH (7.31-7.41) VBG pCO2 (37-51) mmHg VBG HCO3 (24-28) mmol/L Sodium 136 L (137-145) mmol/L Potassium (3.5-5.1) mmol/L BUN 19 H (7-17) mg/dL Creatinine (0.52-1.04) mg/dL Plasma Lactic Acid Cornelius (0.7-2.0) mmol/L Calcium 6.7 L (8.4-10.2) mg/dL AST 41 H (14-36) U/L Alkaline Phosphatase 278 H (38-126) U/L Troponin I 0.253 H* (0.000-0.034) ng/mL Total Protein 4.5 L (6.3-8.2) g/dL Albumin 1.9 L (3.5-5.0) g/dL Crossmatch 09/06/22 09/06/22 09/06/22 Range/Units 12:10 12:10 14:49 WBC 36.5 H (3.8-10.6) k/uL RBC 1.89 L (3.80-5.40) m/uL Hgb 6.6 L* (11.4-16.0) gm/dL Hct 21.4 L (34.0-46.0) % MCV 113.4 H (80.0-100.0) fL MCH 35.1 H (25.0-35.0) pg MCHC 30.9 L (31.0-37.0) g/dL RDW 19.6 H (11.5-15.5) % Plt Count 133 L (150-450) k/uL Neutrophils # (Manual) 32.40 H (1.3-7.7) k/uL Lymphocytes # (Manual) 0.73 L (1.0-4.8) k/uL Monocytes # (Manual) 1.83 H (0-1.0) k/uL Metamyelocytes # (Man) 1.10 H (0) k/uL Myelocytes # (Manual) 0.73 H (0) k/uL Nucleated RBCs 3 H (0-0) /100 WBC Macrocytosis Marked A PT (9.0-12.0) sec INR (<1.2) D-Dimer (<0.60) mg/L FEU VBG pH 7.27 L (7.31-7.41) VBG pCO2 64 H (37-51) mmHg VBG HCO3 29 H (24-28) mmol/L Sodium (137-145) mmol/L Potassium (3.5-5.1) mmol/L BUN (7-17) mg/dL Creatinine (0.52-1.04) mg/dL Plasma Lactic Acid Cornelius 4.4 H* (0.7-2.0) mmol/L Calcium (8.4-10.2) mg/dL AST (14-36) U/L Alkaline Phosphatase (38-126) U/L Troponin I (0.000-0.034) ng/mL Total Protein (6.3-8.2) g/dL Albumin (3.5-5.0) g/dL Crossmatch 09/06/22 09/06/22 09/06/22 Range/Units 15:40 21:27 21:27 WBC 42.8 H (3.8-10.6) k/uL RBC 2.76 L (3.80-5.40) m/uL Hgb 9.3 L D (11.4-16.0) gm/dL Hct 28.6 L (34.0-46.0) % MCV 103.7 H D (80.0-100.0) fL MCH (25.0-35.0) pg MCHC (31.0-37.0) g/dL RDW 23.2 H (11.5-15.5) % Plt Count 148 L (150-450) k/uL Neutrophils # (Manual) 39.80 H (1.3-7.7) k/uL Lymphocytes # (Manual) (1.0-4.8) k/uL Monocytes # (Manual) (0-1.0) k/uL Metamyelocytes # (Man) 0.86 H (0) k/uL Myelocytes # (Manual) (0) k/uL Nucleated RBCs 3 H (0-0) /100 WBC Macrocytosis Marked A PT (9.0-12.0) sec INR (<1.2) D-Dimer (<0.60) mg/L FEU VBG pH (7.31-7.41) VBG pCO2 (37-51) mmHg VBG HCO3 (24-28) mmol/L Sodium (137-145) mmol/L Potassium (3.5-5.1) mmol/L BUN (7-17) mg/dL Creatinine (0.52-1.04) mg/dL Plasma Lactic Acid Cornelius (0.7-2.0) mmol/L Calcium (8.4-10.2) mg/dL AST (14-36) U/L Alkaline Phosphatase (38-126) U/L Troponin I 0.221 H* (0.000-0.034) ng/mL Total Protein (6.3-8.2) g/dL Albumin (3.5-5.0) g/dL Crossmatch See Detail 09/06/22 09/07/22 09/07/22 Range/Units 21:27 00:14 05:49 WBC 45.5 H (3.8-10.6) k/uL RBC 2.80 L (3.80-5.40) m/uL Hgb 9.4 L (11.4-16.0) gm/dL Hct 28.8 L (34.0-46.0) % MCV 102.8 H (80.0-100.0) fL MCH (25.0-35.0) pg MCHC (31.0-37.0) g/dL RDW 23.6 H (11.5-15.5) % Plt Count 138 L (150-450) k/uL Neutrophils # (Manual) 42.30 H (1.3-7.7) k/uL Lymphocytes # (Manual) (1.0-4.8) k/uL Monocytes # (Manual) 1.37 H (0-1.0) k/uL Metamyelocytes # (Man) (0) k/uL Myelocytes # (Manual) 0.46 H (0) k/uL Nucleated RBCs 1 H (0-0) /100 WBC Macrocytosis Marked A PT (9.0-12.0) sec INR (<1.2) D-Dimer (<0.60) mg/L FEU VBG pH (7.31-7.41) VBG pCO2 (37-51) mmHg VBG HCO3 (24-28) mmol/L Sodium (137-145) mmol/L Potassium (3.5-5.1) mmol/L BUN 20 H (7-17) mg/dL Creatinine 0.43 L (0.52-1.04) mg/dL Plasma Lactic Acid Cornelius (0.7-2.0) mmol/L Calcium 7.4 L (8.4-10.2) mg/dL AST (14-36) U/L Alkaline Phosphatase (38-126) U/L Troponin I 0.244 H* (0.000-0.034) ng/mL Total Protein (6.3-8.2) g/dL Albumin (3.5-5.0) g/dL Crossmatch 09/07/22 Range/Units 05:49 WBC (3.8-10.6) k/uL RBC (3.80-5.40) m/uL Hgb (11.4-16.0) gm/dL Hct (34.0-46.0) % MCV (80.0-100.0) fL MCH (25.0-35.0) pg MCHC (31.0-37.0) g/dL RDW (11.5-15.5) % Plt Count (150-450) k/uL Neutrophils # (Manual) (1.3-7.7) k/uL Lymphocytes # (Manual) (1.0-4.8) k/uL Monocytes # (Manual) (0-1.0) k/uL Metamyelocytes # (Man) (0) k/uL Myelocytes # (Manual) (0) k/uL Nucleated RBCs (0-0) /100 WBC Macrocytosis PT (9.0-12.0) sec INR (<1.2) D-Dimer (<0.60) mg/L FEU VBG pH (7.31-7.41) VBG pCO2 (37-51) mmHg VBG HCO3 (24-28) mmol/L Sodium (137-145) mmol/L Potassium 3.2 L (3.5-5.1) mmol/L BUN 19 H (7-17) mg/dL Creatinine 0.34 L (0.52-1.04) mg/dL Plasma Lactic Acid Cornelius (0.7-2.0) mmol/L Calcium 7.5 L (8.4-10.2) mg/dL AST 46 H (14-36) U/L Alkaline Phosphatase 336 H (38-126) U/L Troponin I (0.000-0.034) ng/mL Total Protein 5.1 L (6.3-8.2) g/dL Albumin 2.1 L (3.5-5.0) g/dL Crossmatch Assessment and Plan Assessment: Acute mental status changes, with cyanosis, likely related to sepsis, and extensive bilateral pneumonia. 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 Acute hypotension, secondary to sepsis. Anemia. Thrombocytopenia. Respiratory acidosis. Severe hypoalbuminemia. Plan: Plan dated 09/06/2022. The patient is seen in the emergency department. The patient's currently on norepinephrine. She was given both Zosyn and vancomycin for pneumonia. She is on a nonrebreather mask. The patient was initially found to be unresponsive, with cyanosis. Currently, according to the hospital service, she is a full code. Labs, x-rays, and medications are reviewed. Some consideration should be given to transferring the patient to her facility of record. We will continue to follow make recommendations along the way. Plan dated 09/07/2022. The patient is seen today in room 262. The patient is currently on 6 L nasal cannula. She's receiving Zosyn and vancomycin for infection. She remains on norepinephrine at 4 mcg/m. We will continue to follow make recommendations along the way. Overall prognosis is very guarded. The patient is currently a full code. Time with Patient: Greater than 30
[2022-09-07] MEDS: SODIUM CHLORIDE 0.9% 1,000 ML IV SCH (11:30)
--- NOTE | 2022-09-07 12:03 | P.CONS ---
History of Present Illness - Reason for Consult Consult date: 09/07/22 - Chief Complaint Weakness - History of Present Illness Ms. 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 She was noted by her have increased weakness and and decreased alertness yesterday prior to presentation. On presentation, she was found to be hypotensive, tachycardic, and hypoxic with blood pressure 73/48, heart rate 126, saturation 83%. CBC noted more blood cell count 42.8 (image for count 39.8, absolute monocyte count 0.86), hemoglobin 9.3, and platelet count 48. BMP noted no evidence of acute metabolic abnormalities. CT of the brain revealed no intracranial metastases, but did notice large soft tissue mass in the right middle cranial fossa measuring 4.7 x 4.5 cm with inferior extension to the right mandibular space along with surrounding osseous destruction. CT PE revealed no evidence of pulmonary embolism, but did note extensive airspace disease in the right upper lobe. The lungs bilaterally are noted to have extensive disease with peripheral opacities, groundglass opacities, and treatment but opacities. There was concern for a cavitary changes in the right apex and the anterior right upper lobe concerning for potential atypical mycobacterium or fungal infection or multifocal pneumonia. She was started on vancomycin and Zosyn along with norepinephrine and admitted to the ICU for additional management. On examination today, she is alert and able to interact appropriately with me today. She notes having had 2 cycles of IV treatments, but she is unsure what those treatments were. She notes that her last treatment was approximately 3 we eks ago. Prior to admission, she notes feeling fine without any dyspnea, fevers, chills, nausea, vomiting, or diarrhea. She is currently on 4-6 L nasal cannula with current norepinephrine concentration is at 0.07 mg/kg/m. 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, bellspalsy R History of Any Multi-Drug Resistant Organisms: None Reported Past Surgical History: Unable to Obtain Additional Past Surgical History / Comment(s): peg tube, mediprot Past Anesthesia/Blood Transfusion Reactions: No Reported Reaction Past Psychological History: No Psychological Hx Reported Smoking Status: Former smoker Past Alcohol Use History: None Reported Past Drug Use History: Unable to Obtain - Past Family History family Additional Family Medical History / Comment(s): no hx of head and neck cancer at home Medications and Allergies Home Medications Medication Instructions Recorded Confirmed Type Acetaminophen Oral Susp [Tylenol] 480 mg PEG/G-TUBE Q4H 09/06/22 09/06/22 History Famotidine [Pepcid] 20 mg PEG/G-TUBE DAILY PRN 09/06/22 09/06/22 History Gabapentin [Gabapentin Oral Soln] 250 mg PEG/G-TUBE TID 09/06/22 09/06/22 H istory Loperamide HCl [Loperamide HCl 1.33 mg PEG/G-TUBE Q6H PRN 09/06/22 09/06/22 History Oral Susp] Methadone HCl [Methadone Intensol] 10 mg PEG/G-TUBE Q8H 09/06/22 09/06/22 History Metoclopramide [Reglan] 10 mg PEG/G-TUBE Q6H PRN 09/06/22 09/06/22 History OLANZapine ODT [ZyPREXA ZYDIS] 10 mg PEG/G-TUBE DIRECTED 09/06/22 09/06/22 History Oxycodone 5mg/5ml 15 mg PEG/G-TUBE Q4H 09/06/22 09/06/22 History Allergies Allergy/AdvReac Type Severity Reaction Status Date / Time No Known Allergies Allergy Verified 09/06/22 11:14 Physical Exam Vitals: Vital Signs Temp Pulse Pulse Resp BP BP Pulse Ox 09/07/22 11:00 105 H 17 123/68 91 L 09/07/22 10:30 93 13 106/58 93 L 09/07/22 10:00 89 14 120/62 94 L 09/07/22 09:30 89 10 L 110/63 94 L 09/07/22 09:00 89 14 110/57 98 09/07/22 08:30 89 17 100/50 98 09/07/22 08:00 92 16 109/61 98 09/07/22 06:00 98 16 114/61 95 09/07/22 05:28 89 09/07/22 05:15 89 96 12/31/22 05:00 93 15 113/60 95 09/07/22 04:00 98.5 F 94 109/72 96 09/07/22 03:00 115/63 09/07/22 02:00 104/63 95 09/07/22 01:00 92 14 100/55 98 09/07/22 00:00 93 15 91/53 98 09/06/22 23:49 98 94 L 09/06/22 23:00 95 15 76/45 95 09/06/22 22:00 103 H 09/06/22 21:40 98.4 F 98 15 79/53 96 09/06/22 21:00 93/57 09/06/22 20:00 98.2 F 105 H 14 83/55 89 L 09/06/22 19:35 98 F 104 H 18 83/55 94 L 09/06/22 19:00 108 H 21 82/58 90 L 09/06/22 18:17 105 H 17 83/56 98 09/06/22 18:00 105 H 14 84/56 99 09/06/22 17:44 106 H 09/06/22 17:36 97.3 F L 105 H 18 84/56 98 09/06/22 17:33 104 H 09/06/22 17:16 98 F 103 H 18 83/62 96 09/06/22 17:05 99.0 F 103 H 16 79/52 96 09/06/22 17:00 102 H 13 75/54 96 09/06/22 16:00 101 H 5 L 87/55 93 L 09/06/22 15:00 101 H 12 79/54 100 09/06/22 14:00 101 H 11 L 78/54 100 09/06/22 13:07 74/51 09/06/22 12:40 108 H 99/56 98 09/06/22 12:30 112 H 22 79/59 83 L 09/06/22 12:13 105 H 15 77/49 98 Intake and Output 09/06/22 09/07/22 09/07/22 22:59 06:59 14:59 Intake Total 414.177 490.083 291.776 Output Total 820 Balance 414.177 -329.917 291.776 Intake: IV 455 105 KVO 80 30 Piperacillin-Tazobactam 3 125 75 .375 gm In Sodium Chloride 0.9% 100 ml @ 25 mls/hr IVPB Q8HR [facility] Rx# :[id number] Vancomycin 750 mg In 250 Sodium Chloride 0.9% 250 ml @ 125 mls/hr IVPB ONCE ONE Rx#:[id number] Intake, IV Titration 104.177 35.083 186.776 Amount Norepinephrine 4 mg In 104.177 35.083 111.776 Sodium Chloride 0.9% 250 ml @ 0.03 MCG/KG/MIN 5. 444 mls/hr IV .Q24H ONE Rx#:[id number] Sodium Chloride 0.9% 1, 75 000 ml @ 75 mls/hr IV . [id number] [facility] Rx#:[id number] Blood Product 310 Rc As-1 Unit 310 [id number] Output: Urine 820 Other: Voiding Method Bedside Commode Bedside Commode # Voids 0 0 0 # Bowel Movements 0 0 Weight 47.627 kg 44.2 kg 44.2 kg - Constitutional General appearance: average body habitus, no acute distress - EENT Periorbital edema of the right eye compared to the left - Respiratory Respiratory: bilateral: rhonchi, other (Inspiratory crackles) - Cardiovascular Rhythm: regular - Gastrointestinal Feeding tube surrounded by dry gauze General gastrointestinal: no distended, normal bowel sounds, soft, no tenderness - Integumentary Integumentary: no rash - Neurologic Right eyelid droop compared to the left - Psychiatric Psychiatric: appropriate affect Results CBC & Chem 7: 09/07/22 05:49 09/07/22 05:49 Labs: Abnormal Lab Results - Last 24 Hours (Table) 09/06/22 09/06/22 09/06/22 Range/Units 12:10 12:10 12:10 WBC (3.8-10.6) k/uL RBC (3.80-5.40) m/uL Hgb (11.4-16.0) gm/dL Hct (34.0-46.0) % MCV (80.0-100.0) fL MCH (25.0-35.0) pg MCHC (31.0-37.0) g/dL RDW (11.5-15.5) % Plt Count (150-450) k/uL Neutrophils # (Manual) (1.3-7.7) k/uL Lymphocytes # (Manual) (1.0-4.8) k/uL Monocytes # (Manual) (0-1.0) k/uL Metamyelocytes # (Man) (0) k/uL Myelocytes # (Manual) (0) k/uL Nucleated RBCs (0-0) /100 WBC Macrocytosis PT 13.3 H (9.0-12.0) sec INR 1.3 H (<1.2) D-Dimer 3.55 H (<0.60) mg/L FEU VBG pH (7.31-7.41) VBG pCO2 (37-51) mmHg VBG HCO3 (24-28) mmol/L Sodium 136 L (137-145) mmol/L Potassium (3.5-5.1) mmol/L BUN 19 H (7-17) mg/dL Creatinine (0.52-1.04) mg/dL Plasma Lactic Acid Cornelius (0.7-2.0) mmol/L Calcium 6.7 L (8.4-10.2) mg/dL AST 41 H (14-36) U/L Alkaline Phosphatase 278 H (38-126) U/L Troponin I 0.253 H* (0.000-0.034) ng/mL Total Protein 4.5 L (6.3-8.2) g/dL Albumin 1.9 L (3.5-5.0) g/dL Crossmatch 09/06/22 09/06/22 09/06/22 Range/Units 12:10 12:10 14:49 WBC 36.5 H (3.8-10.6) k/uL RBC 1.89 L (3.80-5.40) m/uL Hgb 6.6 L* (11.4-16.0) gm/dL Hct 21.4 L (34.0-46.0) % MCV 113.4 H (80.0-100.0) fL MCH 35.1 H (25.0-35.0) pg MCHC 30.9 L (31.0-37.0) g/dL RDW 19.6 H (11.5-15.5) % Plt Count 133 L (150-450) k/uL Neutrophils # (Manual) 32.40 H (1.3-7.7) k/uL Lymphocytes # (Manual) 0.73 L (1.0-4.8) k/uL Monocytes # (Manual) 1.83 H (0-1.0) k/uL Metamyelocytes # (Man) 1.10 H (0) k/uL Myelocytes # (Manual) 0.73 H (0) k/uL Nucleated RBCs 3 H (0-0) /100 WBC Macrocytosis Marked A PT (9.0-12.0) sec INR (<1.2) D-Dimer (<0.60) mg/L FEU VBG pH 7.27 L (7.31-7.41) VBG pCO2 64 H (37-51) mmHg VBG HCO3 29 H (24-28) mmol/L Sodium (137-145) mmol/L Potassium (3.5-5.1) mmol/L BUN (7-17) mg/dL Creatinine (0.52-1.04) mg/dL Plasma Lactic Acid Cornelius 4.4 H* (0.7-2.0) mmol/L Calcium (8.4-10.2) mg/dL AST (14-36) U/L Alkaline Phosphatase (38-126) U/L Troponin I (0.000-0.034) ng/mL Total Protein (6.3-8.2) g/dL Albumin (3.5-5.0) g/dL Crossmatch 09/06/22 09/06/22 09/06/22 Range/Units 15:40 21:27 21:27 WBC 42.8 H (3.8-10.6) k/uL RBC 2.76 L (3.80-5.40) m/uL Hgb 9.3 L D (11.4-16.0) gm/dL Hct 28.6 L (34.0-46.0) % MCV 103.7 H D (80.0-100.0) fL MCH (25.0-35.0) pg MCHC (31.0-37.0) g/dL RDW 23.2 H (11.5-15.5) % Plt Count 148 L (150-450) k/uL Neutrophils # (Manual) 39.80 H (1.3-7.7) k/uL Lymphocytes # (Manual) (1.0-4.8) k/uL Monocytes # (Manual) (0-1.0) k/uL Metamyelocytes # (Man) 0.86 H (0) k/uL Myelocytes # (Manual) (0) k/uL Nucleated RBCs 3 H (0-0) /100 WBC Macrocytosis Marked A PT (9.0-12.0) sec INR (<1.2) D-Dimer (<0.60) mg/L FEU VBG pH (7.31-7.41) VBG pCO2 (37-51) mmHg VBG HCO3 (24-28) mmol/L Sodium (137-145) mmol/L Potassium (3.5-5.1) mmol/L BUN (7-17) mg/dL Creatinine (0.52-1.04) mg/dL Plasma Lactic Acid Cornelius (0.7-2.0) mmol/L Calcium (8.4-10.2) mg/dL AST (14-36) U/L Alkaline Phosphatase (38-126) U/L Troponin I 0.221 H* (0.000-0.034) ng/mL Total Protein (6.3-8.2) g/dL Albumin (3.5-5.0) g/dL Crossmatch See Detail 09/06/22 09/07/22 09/07/22 Range/Units 21:27 00:14 05:49 WBC 45.5 H (3.8-10.6) k/uL RBC 2.80 L (3.80-5.40) m/uL Hgb 9.4 L (11.4-16.0) gm/dL Hct 28.8 L (34.0-46.0) % MCV 102.8 H (80.0-100.0) fL MCH (25.0-35.0) pg MCHC (31.0-37.0) g/dL RDW 23.6 H (11.5-15.5) % Plt Count 138 L (150-450) k/uL Neutrophils # (Manual) 42.30 H (1.3-7.7) k/uL Lymphocytes # (Manual) (1.0-4.8) k/uL Monocytes # (Manual) 1.37 H (0-1.0) k/uL Metamyelocytes # (Man) (0) k/uL Myelocytes # (Manual) 0.46 H (0) k/uL Nucleated RBCs 1 H (0-0) /100 WBC Macrocytosis Marked A PT (9.0-12.0) sec INR (<1.2) D-Dimer (<0.60) mg/L FEU VBG pH (7.31-7.41) VBG pCO2 (37-51) mmHg VBG HCO3 (24-28) mmol/L Sodium (137-145) mmol/L Potassium (3.5-5.1) mmol/L BUN 20 H (7-17) mg/dL Creatinine 0.43 L (0.52-1.04) mg/dL Plasma Lactic Acid Cornelius (0.7-2.0) mmol/L Calcium 7.4 L (8.4-10.2) mg/dL AST (14-36) U/L Alkaline Phosphatase (38-126) U/L Troponin I 0.244 H* (0.000-0.034) ng/mL Total Protein (6.3-8.2) g/dL Albumin (3.5-5.0) g/dL Crossmatch 09/07/22 Range/Units 05:49 WBC (3.8-10.6) k/uL RBC (3.80-5.40) m/uL Hgb (11.4-16.0) gm/dL Hct (34.0-46.0) % MCV (80.0-100.0) fL MCH (25.0-35.0) pg MCHC (31.0-37.0) g/dL RDW (11.5-15.5) % Plt Count (150-450) k/uL Neutrophils # (Manual) (1.3-7.7) k/uL Lymphocytes # (Manual) (1.0-4.8) k/uL Monocytes # (Manual) (0-1.0) k/uL Metamyelocytes # (Man) (0) k/uL Myelocytes # (Manual) (0) k/uL Nucleated RBCs (0-0) /100 WBC Macrocytosis PT (9.0-12.0) sec INR (<1.2) D-Dimer (<0.60) mg/L FEU VBG pH (7.31-7.41) VBG pCO2 (37-51) mmHg VBG HCO3 (24-28) mmol/L Sodium (137-145) mmol/L Potassium 3.2 L (3.5-5.1) mmol/L BUN 19 H (7-17) mg/dL Creatinine 0.34 L (0.52-1.04) mg/dL Plasma Lactic Acid Cornelius (0.7-2.0) mmol/L Calcium 7.5 L (8.4-10.2) mg/dL AST 46 H (14-36) U/L Alkaline Phosphatase 336 H (38-126) U/L Troponin I (0.000-0.034) ng/mL Total Protein 5.1 L (6.3-8.2) g/dL Albumin 2.1 L (3.5-5.0) g/dL Crossmatch Assessment and Plan Assessment: Ms. Augustin is a 62-year-old female with a past medical history significant for squamous cell carcinoma of the tongue with potential metastasis to the right eye currently on systemic treatment of unclear etiology who presented with acute metabolic encephalopathy found to have acute hypoxic respiratory failure secondary to multifocal pneumonia. (1) Multifocal pneumonia Current Visit: Yes Status: Acute Code(s): J18.9 - PNEUMONIA, UNSPECIFIED ORGANISM SNOMED Code(s): 275885128 (2) Cancer of tongue Current Visit: Yes Status: Acute Code(s): C02.9 - MALIGNANT NEOPLASM OF TONGUE, UNSPECIFIED SNOMED Code(s): 263452326 (3) Anemia Current Visit: Yes Status: Acute Code(s): D64.9 - ANEMIA, UNSPECIFIED SNOMED Code(s): 013338448 Plan: #Squamous cell carcinoma of the tongue -Per as documented in the medical records, she has metastasis to the right eye -She receives her care with Dr. 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 Augustin Notes having received 2 cycles of treatment so far -She did inquire whether her treatment was working or not -June that I did not have sufficient information at this time to make that assessment. In addition, 2 cycles of treatment would typically not be sufficient in order to assess treatment response -No acute interventions from an oncologic standpoint at this time -Once medical records are available, these can be reviewed. Her oncologic history at this time is unlikely to change current management being pursued -She'll need outpatient follow-up with her primary oncologist Dr. Cohen #Multifocal pneumonia -Complicated by acute hypoxic respiratory failure and septic shock requiring supplemental oxygen through-flow nasal cannula and norepinephrine treatment -CT PE reveals bilateral consolidations, groundglass opacities, and tree-in-bud opacities with no evidence of pulmonary embolism -This is likely a complication of systemic treatment for her squamous cell carcinoma of the tongue -Started on vancomycin and Zosyn and appears to be clinically improving -Continue broad-spectrum antibiotics -Follow-up infectious workup ordered on admission including blood cultures, UA with reflux culture, and sputum culture -If she clinically worsens, infectious disease consult should be considered given the extent of the infection on imaging #Macrocytic anemia -Likely multifactorial due to systemic treatment with chemotherapy along with anemia of inflammation secondary to current infection -At this time, we will hold on pursuing broad anemia workup given the likely component of inflammation due to infection -If she continues to have persistent anemia and that does not improve, further workup would be reasonable at that time -Anticipate her anemia to improve as she clinically improves from an infection standpoint
[2022-09-07] MEDS: NOREPINEPHRINE 4 MG in SODIUM CHLORIDE 0.9% 250 ML IV SCH (13:43)
[2022-09-07] MEDS: GABAPENTIN 250 MG/5 ML PEG/G-TUBE SCH ×2 (16:25→21:16)
[2022-09-07] MEDS: METHADONE 10 MG/ML PO SCH (17:30)
--- NOTE | 2022-09-07 19:34 | P.PN ---
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 On arrival to the ER vital signs showed tachycardia with a pulse of 126 initially her blood pressure was normal but quickly dropped to 73/48. Initial laboratory analysis showed white blood cell count 36.5, hemoglobin 6.6, platelets 133, INR 1.3, d-dimer 3.55, troponin 0.253, alkaline phosphatase 278, serum albumin 1.9, calcium 6.7. VBG showed a pH of 7.27 with a pCO2 of 64. Influenza A/B/RSV/COVID-[address] head showed large soft tissue mass in the right middle cranial fossa with extension into the right mandibular space was surrounding osseous structure. CTA of the chest showed severe airspace disease within the right upper lobe with the remainder of the lungs showing extensive disease and tree and bud appearance, possible early cavitary changes in the right aspect packs and right upper lobe. Correlate for atypical mycobacterial or fungal infection or extensive pneumonia. Scattered endobronchial opacifications/mucoid debris in the lower lobes. The ER she was given 2 L of normal saline but remained hypotensive and required levo. She was started on Vanco and Zosyn. One unit of packed red blood cells was ordered. Arrangements are made for admission to the ICU. She continued to do better and became awake. Oncology was consulted. Patient seen and examined at bedside. She is more awake and alert today. She is communicative. She denies chest pain or shortness of breath. General: nontoxic, no distress, appears at stated age Derm: warm, dry Head: atraumatic, normocephalic, symmetric Eyes: EOMI, no lid lag, anicteric sclera Mouth: no lip lesion, mucus membranes moist Cardiovascular: S1S2 reg, no murmur, positive posterior tibial pulse bilateral, Lungs: Coarse breath sounds bilateral, no rhonchi, no rales , no accessory muscle use Abdominal: soft, nontender to palpation, no guarding, no appreciable organomegaly Ext: no gross muscle atrophy, no edema, no contractures Neuro: CN II-XI grossly intact, no focal neuro deficits Psych: Alert, oriented, appropriate affect Assessment/Plan: Pneumonia, possible gram-negative or MRSA related with recent chemo Septic shock Acute hypoxic respiratory failure Acute metabolic encephalopathy, resolved -Concerns for possible aspiration event with recent vomiting -continue David Garcian -Serum culture if able -Critical care recs -IV fluids -Levo wean as able - if worsening conisder infectious disease consult - Infiltrate may be related to systemic treatment of cancer per discussion with oncolpogy Anemia, unknown cause Thrombocytopenia - possibly chemo related - s/p 1 unit packed red blood cells -Follow CBC Severe protein calorie malnutrition -Dietitian recs, D/C dietitain and TF reordered 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 Mcdaniel Anticipated discharge date: pending clinical course Anticipated discharge place: pending clinical course A total of 35 minutes was spent on the care of this complex patient more than 50% of the time was spent in counseling and care coordination. Active Medications Generic Name Dose Route Start Last Admin Trade Name Freq PRN Reason Stop Dose Admin Acetaminophen 650 mg 09/06/22 14:52 Acetaminophen Tab 325 Mg Tab PO Q4HR PRN Fever and/or Mild Pain Albuterol/Ipratropium 3 ml 09/06/22 16:00 09/07/22 15:20 Ipratropium-Albuterol 3 Ml Neb INHALATION 3 ml RT-QID LONG Administration Albuterol/Ipratropium 3 ml 09/07/22 09:23 Ipratropium-Albuterol 3 Ml Neb INHALATION RT-Q2H PRN Shortness Of Breath Or Wheezing Bisacodyl 10 mg 09/06/22 18:37 Bisacodyl 10 Mg Supp RECTAL ONCE PRN Constipation Enoxaparin Sodium 40 mg 09/07/22 09:00 09/07/22 11:28 Enoxaparin 40 Mg/0.4 Ml Syringe SQ 40 mg DAILY LONG Administration Famotidine 20 mg 09/06/22 18:46 Famotidine 20 Mg Tab PEG/G-TUBE DAILY PRN acid reflux Piperacillin Sod/Tazobactam 100 mls @ 25 mls/hr 09/07/22 00:00 09/07/22 16:24 Sod 3.375 gm/ Sodium Chloride IVPB 25 mls/hr Q8HR LONG Administration Protocol Vancomycin HCl 750 mg/ Sodium 250 mls @ 125 mls/hr 09/07/22 04:00 09/07/22 16:24 Chloride IVPB 125 mls/hr Q12H LONG Administration Sodium Chloride 1,000 mls @ 75 mls/hr 09/07/22 09:30 09/07/22 11:30 Saline 0.9% IV 75 mls/hr .[id number] LONG Administration Norepinephrine Bitartrate 4 mg 254 mls @ 5.444 mls/hr 09/07/22 13:30 09/07/22 15:14 / Sodium Chloride IV 0 mcg/kg/min .Q24H LONG 0 mls/hr Titration Protocol 0.03 MCG/KG/MIN Lorazepam 0.5 mg 09/06/22 18:37 Lorazepam 2 Mg/Ml Inj IV Q6HR PRN Anxiety Melatonin 3 mg 09/06/22 18:37 Melatonin 3 Mg Tablet PEG/G-TUBE HS PRN Insomnia Metoclopramide HCl 10 mg 09/06/22 18:46 Metoclopramide 10 Mg Tab PEG/G-TUBE Q6H PRN Nausea Miscellaneous Information 1 each 09/06/22 18:37 Pneumonia Protocol Utilized 1 Each Misc PO ONCE PRN Per Protocol Miscellaneous Information 1 each 09/07/22 07:46 Potassium Replacement Protocol 1 Each Misc MISCELLANE DAILY PRN Per Protocol Protocol Miscellaneous Information 1 each 09/08/22 03:00 Vancomycin Trough Due 1 Each Misc MISCELLANE 09/08/22 03:01 ONCE ONE Morphine Sulfate 4 mg 09/06/22 18:37 09/07/22 03:59 Morphine Sulfate 4 Mg/Ml Syringe IVP 4 mg Q4HR PRN Administration Severe Pain (Scale 7 to 10) Naloxone HCl 0.2 mg 09/06/22 14:52 Naloxone 0.4 Mg/Ml 1 Ml Vial IV Q2M PRN Opioid Reversal Non-Formulary Medication 15 mg 09/07/22 16:00 09/07/22 14:59 Oxycodone 5mg/5ml PEG/G-TUBE 15 mg Q4HR LONG Administration Non Formulary Drug ( 250 mg 09/07/22 16:00 09/07/22 16:25 Gabapentin [ PEG/G-TUBE 250 mg Gabapentin Oral Soln TID LONG Administration ] 250 Mg/5 Ml) Patients Own Med ( 2 each 09/07/22 16:00 09/07/22 17:30 Methadone 10mg/Ml PO 2 each Concentrate) Q8HR LONG Administration Ondansetron HCl 4 mg 09/06/22 18:37 Ondansetron 4 Mg/2 Ml Vial IVP Q8HR PRN Nausea And Vomiting Pantoprazole Sodium 40 mg 09/07/22 09:00 09/07/22 08:15 Pantoprazole 40 Mg/10 Ml Vial IV 40 mg DAILY LONG Administration Objective - Vital Signs Vital signs: Vital Signs Temp 98.6 F 09/07/22 16:00 Pulse 96 09/07/22 19:00 Resp 17 09/07/22 19:00 BP 100/53 09/07/22 19:00 Pulse Ox 92 L 09/07/22 19:00 FiO2 Intake & Output 09/07/22 09/07/22 09/08/22 06:59 18:59 06:59 Intake Total 437.311 3936.890 25 Output Total 820 200 0 Balance 53.381 945.890 25 Weight 44.2 kg 44.2 kg Intake: IV 455 505 25 KVO 80 55 25 Piperacillin-Tazobactam 3 125 200 .375 gm In Sodium Chloride 0.9% 100 ml @ 25 mls/hr IVPB Q8HR [facility] Rx# :[id number] Vancomycin 750 mg In 250 250 Sodium Chloride 0.9% 250 ml @ 125 mls/hr IVPB ONCE ONE Rx#:[id number] Intake, IV Titration 108.381 490.890 Amount Norepinephrine 4 mg In 108.381 111.776 Sodium Chloride 0.9% 250 ml @ 0.03 MCG/KG/MIN 5. 444 mls/hr IV .Q24H ONE Rx#:[id number] Norepinephrine 4 mg In 4.114 Sodium Chloride 0.9% 250 ml @ 0.03 MCG/KG/MIN 5. 444 mls/hr IV .Q24H [facility] Rx#:[id number] Sodium Chloride 0.9% 1, 375 000 ml @ 75 mls/hr IV . [id number] [facility] Rx#:[id number] Tube Feeding 120 Blood Product 310 Rc As-1 Unit 310 [id number] Other 30 Output: Urine 820 200 0 Other: Voiding Method Bedside Commode Bedside Commode # Voids 0 1 # Bowel Movements 0 1 - Labs CBC & Chem 7: 09/07/22 05:49 09/07/22 05:49 Labs: Abnormal Lab Results - Last 24 Hours (Table) 09/06/22 09/06/22 09/06/22 Range/Units 15:40 21:27 21:27 WBC 42.8 H (3.8-10.6) k/uL RBC 2.76 L (3.80-5.40) m/uL Hgb 9.3 L D (11.4-16.0) gm/dL Hct 28.6 L (34.0-46.0) % MCV 103.7 H D (80.0-100.0) fL RDW 23.2 H (11.5-15.5) % Plt Count 148 L (150-450) k/uL Neutrophils # (Manual) 39.80 H (1.3-7.7) k/uL Monocytes # (Manual) (0-1.0) k/uL Metamyelocytes # (Man) 0.86 H (0) k/uL Myelocytes # (Manual) (0) k/uL Nucleated RBCs 3 H (0-0) /100 WBC Macrocytosis Marked A Potassium (3.5-5.1) mmol/L BUN (7-17) mg/dL Creatinine (0.52-1.04) mg/dL Calcium (8.4-10.2) mg/dL AST (14-36) U/L Alkaline Phosphatase (38-126) U/L Troponin I 0.221 H* (0.000-0.034) ng/mL Total Protein (6.3-8.2) g/dL Albumin (3.5-5.0) g/dL Crossmatch See Detail 09/06/22 09/07/22 09/07/22 Range/Units 21:27 00:14 05:49 WBC 45.5 H (3.8-10.6) k/uL RBC 2.80 L (3.80-5.40) m/uL Hgb 9.4 L (11.4-16.0) gm/dL Hct 28.8 L (34.0-46.0) % MCV 102.8 H (80.0-100.0) fL RDW 23.6 H (11.5-15.5) % Plt Count 138 L (150-450) k/uL Neutrophils # (Manual) 42.30 H (1.3-7.7) k/uL Monocytes # (Manual) 1.37 H (0-1.0) k/uL Metamyelocytes # (Man) (0) k/uL Myelocytes # (Manual) 0.46 H (0) k/uL Nucleated RBCs 1 H (0-0) /100 WBC Macrocytosis Marked A Potassium (3.5-5.1) mmol/L BUN 20 H (7-17) mg/dL Creatinine 0.43 L (0.52-1.04) mg/dL Calcium 7.4 L (8.4-10.2) mg/dL AST (14-36) U/L Alkaline Phosphatase (38-126) U/L Troponin I 0.244 H* (0.000-0.034) ng/mL Total Protein (6.3-8.2) g/dL Albumin (3.5-5.0) g/dL Crossmatch 09/07/22 Range/Units 05:49 WBC (3.8-10.6) k/uL RBC (3.80-5.40) m/uL Hgb (11.4-16.0) gm/dL Hct (34.0-46.0) % MCV (80.0-100.0) fL RDW (11.5-15.5) % Plt Count (150-450) k/uL Neutrophils # (Manual) (1.3-7.7) k/uL Monocytes # (Manual) (0-1.0) k/uL Metamyelocytes # (Man) (0) k/uL Myelocytes # (Manual) (0) k/uL Nucleated RBCs (0-0) /100 WBC Macrocytosis Potassium 3.2 L (3.5-5.1) mmol/L BUN 19 H (7-17) mg/dL Creatinine 0.34 L (0.52-1.04) mg/dL Calcium 7.5 L (8.4-10.2) mg/dL AST 46 H (14-36) U/L Alkaline Phosphatase 336 H (38-126) U/L Troponin I (0.000-0.034) ng/mL Total Protein 5.1 L (6.3-8.2) g/dL Albumin 2.1 L (3.5-5.0) g/dL Crossmatch Microbiology - Last 24 Hours (Table) 09/07/22 11:05 Sputum Culture - Preliminary Sputum 09/06/22 15:40 Blood Culture - Preliminary Blood No Growth after 24 hours 09/06/22 15:40 Blood Culture - Preliminary Blood No Growth after 24 hours
[2022-09-08] MEDS: PIPERACILLIN-TAZOBACTAM 3.375 GM in SODIUM CHLORIDE 0.9% 100 ML IVPB SCH ×4 (00:15→23:52)
[2022-09-08] MEDS: OXYCODONE PEG/G-TUBE SCH ×6 (00:41→20:48)
[2022-09-08] MEDS: METHADONE 10 MG/ML PO SCH ×4 (00:42→23:52)
[2022-09-08] MEDS ORDERED: VANCOMYCIN TROUGH DUE 1 EACH MISC MISCELLANE ONE (03:00)
[2022-09-08 04:47] LABS: Anisocytosis Moderate; HCT 26.2 % (34.0-46.0); HGB 8.8 gm/dL (11.4-16.0); Hypochromasia Marked; MCH 35.1 pg (25.0-35.0); MCHC 33.4 g/dL (31.0-37.0); MCV 105.2 fL (80.0-100.0); Macrocytosis Marked; Mean Platelet Volume 8.7; Platelet Count 121 k/uL (150-450); Poikilocytosis Moderate; RDW 23.8 % (11.5-15.5); WBC 37.8 k/uL (3.8-10.6)
[2022-09-08] MEDS: VANCOMYCIN 750 MG in SODIUM CHLORIDE 0.9% 250 ML IVPB SCH ×3 (04:55→21:09)
[2022-09-08 05:02] LABS: INR 1.2 (<1.2)
[2022-09-08 05:42] LABS: ALT 19 U/L (4-34); AST 74 U/L (14-36); African American GFR (CKD) >90 (>60 ml/min/1.73 sqM); Alkaline Phosphatase 376 U/L (38-126); Anion Gap 1 mmol/L; Blood Urea Nitrogen 13 mg/dL (7-17); Calcium 7.4 mg/dL (8.4-10.2); Carbon Dioxide 32 mmol/L (22-30); Chloride 109 mmol/L (98-107); Glucose 118 mg/dL (74-99); Magnesium 1.8 mg/dL (1.6-2.3); Non-African American GFR(CKD) >90 (>60 ml/min/1.73 sqM); Phosphorus 1.9 mg/dL (2.5-4.5); Potassium 3.6 mmol/L (3.5-5.1); Sodium 142 mmol/L (137-145); Total Bilirubin 0.2 mg/dL (0.2-1.3); Total Protein 4.8 g/dL (6.3-8.2)
[2022-09-08] MEDS ORDERED: POTASSIUM BICARBONATE/CIT AC 20 MEQ TABLET.EFF NG-TUBE SCH (07:00)
[2022-09-08 07:02] LABS: Glucose,Whole Blood 123 mg/dL (70-110)
[2022-09-08] MEDS: SODIUM CHLORIDE 0.9% 1,000 ML IV SCH (07:18)
[2022-09-08] MEDS: IPRATROPIUM-ALBUTEROL 3 ML NEB INHALATION SCH ×4 (07:28→19:16)
[2022-09-08] MEDS: PANTOPRAZOLE 40 MG/10 ML VIAL IV SCH (07:46)
[2022-09-08] MEDS: ENOXAPARIN 40 MG/0.4 ML SYRINGE SQ SCH (07:47)
--- NOTE | 2022-09-08 07:49 | XR ---
EXAMINATION TYPE: XR chest 1V portable DATE OF EXAM: 09/08/2022 5:28 AM COMPARISON: Chest radiographs from 09/07/2022 TECHNIQUE: XR chest 1V portable Frontal view of the chest. CLINICAL INDICATION:Female, 62 years old with history of SOB; FINDINGS: Lungs/Pleura: Improved aeration of the right lung apex with scattered airspace opacities again seen. No evidence of pneumothorax trace bilateral pleural effusions suspected. Pulmonary vascularity: Unremarkable. Heart/mediastinum: Cardiomediastinal silhouette is enlarged and stable. Musculoskeletal: No acute osseous pathology. Lines/Tubes: [id number] projecting over the right hemithorax with distal tip at the cavoatrial junction. IMPRESSION: Mildly improved aeration right lung apex with scattered airspace opacities.
[2022-09-08] MEDS: GABAPENTIN 250 MG/5 ML PEG/G-TUBE SCH ×3 (09:32→21:09)
--- NOTE | 2022-09-08 10:37 | P.PN ---
Subjective Progress Note Date: 09/08/22 Principal diagnosis: Pneumonia. Pulmonary/critical care consultation dated 09/06/2022. 62-year-old female seen by Dr. Diego in the emergency room, for loss of consciousness. She was seen initially at 10:48 AM, today. The patient apparently was found to be unresponsive, and EMS was called, she was apparently cyanotic and unresponsive. Oxygen was provided and the patient apparently improved. 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 The patient was very difficult to understand according to the ER physician. Most of the history apparently was obtained from the family member. The patient was discovered to have hypotension, was given 2 L of fluid, and started on norepinephrine. The patient is currently seeing an ER, trauma 2. The patient is on a nonrebreather mask, and getting norepinephrine at 0.061 mcg/kg/m. She was given Zosyn and vancomycin. Home medications included Tylenol, methadone, loperamide, oxycodone, gabapentin, Reglan, Zyprexa, and Pepcid. She has no known ALLERGIES. Laboratory data includes a white count of 36.5, hemoglobin 6.6, hematocrit 21.4, and a platelet count of 133,000. PT 13.3, INR 1.3, and d-dimer was 3.55. Venous blood gas showed a CO2 of 64, and a pH is 7.27. Sodium 136, potassium 3.6, chlorides 100, CO2 30, BUN 19, creatinine 0.61. Troponin was 0.253. Albumin 1.9. Testing for influenza, respiratory syncytial virus, and coronavirus, were all negative. Brain CT showed a large soft tissue mass within the right middle cranial fossa with inferior extension into the right mandible space with surrounding osseous destruction. Chest x-ray shows diffuse abnormalities throughout both lungs, more right-sided than left-sided, and more extensive consolidation particularly in the right upper lobe. CT angiogram was negative for pulmonary embolism, but did show bilateral airspace disease, with the greatest degree of consolidation, in the right upper lobe. Progress note dated 09/07/2022. The patient is seen today in room 262. She was seen in consultation yesterday, in the emergency department. She's currently on 6 L of oxygen. She's getting saline at 20 mL an hour, and norepinephrine at 4 mcg/m. She is also on Zosyn and vancomycin diffuse bilateral pneumonia. Clinically, she's about the same. She had an uneventful night according to the nurse. White count 45.5, hemoglobin 9.4, hematocrit 28.8, platelet count 238,000. Opium 140, potassium 3.2, chlorides 104, CO2 29, BUN 19, and creatinine 0.34. The rest of the labs look unremarkable save for an albumin of 2.1. Chest x-ray shows diffuse bilateral airspace disease. Chest x-ray is essentially unchanged, with most of the abnormality occurring in the right upper lobe. Progress note dated 09/08/2022. The patient is again seen today in room 262. She's on 10 L high flow oxygen. She's getting saline IV at KVO. She's getting tube feeds at 30 mL an hour, which is her goal. She is currently on Zosyn and vancomycin for her pneumonia. White count is 37.8, hemoglobin 8.8, hematocrit 26.2, and platelet count 121,000. Sodium 142, potassium 3.6, chlorides 109, CO2 32, BUN 13, creatinine 0.27. Chest x-ray show some improvement compared to initial x-rays. Objective - Vital Signs Vital signs: Vital Signs Temp 99.1 F 09/08/22 08:30 Pulse 102 H 09/08/22 09:30 Resp 16 09/08/22 09:30 BP 108/60 09/08/22 09:30 Pulse Ox 93 L 09/08/22 09:30 FiO2 Intake & Output 09/07/22 09/08/22 09/08/22 18:59 06:59 18:59 Intake Total 1145.890 610 75 Output Total 200 0 Balance 945.890 610 75 Weight 44.2 kg 48.2 kg Intake: IV 505 400 75 KVO 55 300 50 Piperacillin-Tazobactam 3 200 100 25 .375 gm In Sodium Chloride 0.9% 100 ml @ 25 mls/hr IVPB Q8HR [facility] Rx# :[id number] Vancomycin 750 mg In 250 Sodium Chloride 0.9% 250 ml @ 125 mls/hr IVPB ONCE ONE Rx#:[id number] Intake, IV Titration 490.890 Amount Norepinephrine 4 mg In 111.776 Sodium Chloride 0.9% 250 ml @ 0.03 MCG/KG/MIN 5. 444 mls/hr IV .Q24H ONE Rx#:[id number] Norepinephrine 4 mg In 4.114 Sodium Chloride 0.9% 250 ml @ 0.03 MCG/KG/MIN 5. 444 mls/hr IV .Q24H [facility] Rx#:[id number] Sodium Chloride 0.9% 1, 375 000 ml @ 75 mls/hr IV . [id number] LONG Rx#:[id number] Tube Feeding 120 120 Other 30 90 Output: Urine 200 0 Other: Voiding Method Bedside Commode Bedside Commode # Voids 1 0 0 # Bowel Movements 1 1 0 - Exam No acute distress, poorly responsive, currently on 10 L nasal cannula. HEENT examination reveals a right facial droop. Neck supple. Full range of motion. No adenopathy thyromegaly or neck vein distention. Cardiovascular examination reveals regular rhythm rate. S1-S2 normal. No S3 or S4. No discernible murmur noted. Heart sounds are distant. Heart rate 102 bpm. The patient has a port in the right chest area. Lungs reveal scattered diffuse rhonchi. The patient does not take deep breaths. No wheezes. No crackles. Saturations are 93% on 10 L nasal cannula. Abdomen soft, without bowel sounds. Extremities are intact. No cyanosis or clubbing. 1+ edema is noted in the lower extremities. Skin is without rash or lesion. Neurologic examination is unchanged. - Labs CBC & Chem 7: 09/08/22 04:16 09/08/22 04:16 Labs: Abnormal Lab Results - Last 24 Hours (Table) 09/08/22 09/08/22 09/08/22 Range/Units 04:16 04:16 04:16 WBC 37.8 H (3.8-10.6) k/uL RBC 2.50 L (3.80-5.40) m/uL Hgb 8.8 L (11.4-16.0) gm/dL Hct 26.2 L (34.0-46.0) % MCV 105.2 H (80.0-100.0) fL MCH 35.1 H (25.0-35.0) pg RDW 23.8 H (11.5-15.5) % Plt Count 121 L (150-450) k/uL Macrocytosis Marked A INR 1.2 H (<1.2) Chloride 109 H (98-107) mmol/L Carbon Dioxide 32 H (22-30) mmol/L Creatinine 0.27 L (0.52-1.04) mg/dL Glucose 118 H (74-99) mg/dL POC Glucose (mg/dL) (70-110) mg/dL Calcium 7.4 L (8.4-10.2) mg/dL Phosphorus 1.9 L (2.5-4.5) mg/dL AST 74 H (14-36) U/L Alkaline Phosphatase 376 H (38-126) U/L Total Protein 4.8 L (6.3-8.2) g/dL Albumin 2.0 L (3.5-5.0) g/dL 09/08/22 Range/Units 07:01 WBC (3.8-10.6) k/uL RBC (3.80-5.40) m/uL Hgb (11.4-16.0) gm/dL Hct (34.0-46.0) % MCV (80.0-100.0) fL MCH (25.0-35.0) pg RDW (11.5-15.5) % Plt Count (150-450) k/uL Macrocytosis INR (<1.2) Chloride (98-107) mmol/L Carbon Dioxide (22-30) mmol/L Creatinine (0.52-1.04) mg/dL Glucose (74-99) mg/dL POC Glucose (mg/dL) 123 H (70-110) mg/dL Calcium (8.4-10.2) mg/dL Phosphorus (2.5-4.5) mg/dL AST (14-36) U/L Alkaline Phosphatase (38-126) U/L Total Protein (6.3-8.2) g/dL Albumin (3.5-5.0) g/dL Microbiology - Last 24 Hours (Table) 09/07/22 11:05 Gram Stain - Preliminary Sputum Sputum Culture - Preliminary 09/06/22 15:40 Blood Culture - Preliminary Blood No Growth after 24 hours 09/06/22 15:40 Blood Culture - Preliminary Blood No Growth after 24 hours Assessment and Plan Assessment: Acute mental status changes, with cyanosis, likely related to sepsis, and extensive bilateral pneumonia. 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 Acute hypotension, secondary to sepsis. Anemia. Thrombocytopenia. Respiratory acidosis. Severe hypoalbuminemia. Plan: Plan dated 09/06/2022. The patient is seen in the emergency department. The patient's currently on norepinephrine. She was given both Zosyn and vancomycin for pneumonia. She is on a nonrebreather mask. The patient was initially found to be unresponsive, with cyanosis. Currently, according to the hospital service, she is a full code. Labs, x-rays, and medications are reviewed. Some consideration should be given to transferring the patient to her facility of record. We will continue to follow make recommendations along the way. Plan dated 09/07/2022. The patient is seen today in room 262. The patient is currently on 6 L nasal cannula. She's receiving Zosyn and vancomycin for infection. She remains on norepinephrine at 4 mcg/m. We will continue to follow make recommendations along the way. Overall prognosis is very guarded. The patient is currently a full code. Plan dated 09/08/2022. The patient is again seen today in room 262. She was on 6 L of oxygen yesterday, and is now up to 10 L/m. She continues on Zosyn and vancomycin. Culture data is as far negative. The patient has been weaned off norepinephrine. Chest x-ray show some mild improvement. Mental status is still poor. We'll continue to follow and make recommendations along the way. Labs, x-rays, and medications are all reviewed. Time with Patient: Greater than 30
[2022-09-08 11:59] LABS: LDH 738 U/L (313-618)
--- NOTE | 2022-09-08 15:38 | P.PN ---
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 -Afebrile, but has noted become more hypoxic over the past 24 hours and has gone from 4 to 6 L nasal cannula to 12 L nasal cannula -She appears more lethargic and less interactive on today's encounter -I did talk to her at bedside, who was able to disclose that she is on treatment with carboplatin/5-FU/pembrolizumab and had received 2 cycles to date Objective - Vital Signs Vital signs: Vital Signs Temp 99.2 F 09/08/22 12:00 Pulse 89 09/08/22 14:00 Resp 14 09/08/22 14:00 BP 113/66 09/08/22 14:00 Pulse Ox 93 L 09/08/22 14:00 FiO2 Intake & Output 09/07/22 09/08/22 09/08/22 18:59 06:59 18:59 Intake Total 1145.890 610 430 Output Total 200 0 Balance 945.890 610 430 Weight 44.2 kg 48.2 kg Intake: IV 505 400 190 KVO 55 300 90 Piperacillin-Tazobactam 3 200 100 100 .375 gm In Sodium Chloride 0.9% 100 ml @ 25 mls/hr IVPB Q8HR [facility] Rx# :[id number] Vancomycin 750 mg In 250 Sodium Chloride 0.9% 250 ml @ 125 mls/hr IVPB ONCE ONE Rx#:[id number] Intake, IV Titration 490.890 Amount Norepinephrine 4 mg In 111.776 Sodium Chloride 0.9% 250 ml @ 0.03 MCG/KG/MIN 5. 444 mls/hr IV .Q24H ONE Rx#:[id number] Norepinephrine 4 mg In 4.114 Sodium Chloride 0.9% 250 ml @ 0.03 MCG/KG/MIN 5. 444 mls/hr IV .Q24H [facility] Rx#:[id number] Sodium Chloride 0.9% 1, 375 000 ml @ 75 mls/hr IV . [id number] [facility] Rx#:[id number] Tube Feeding 120 120 180 Other 30 90 60 Output: Urine 200 0 Other: Voiding Method Bedside Commode Bedside Commode Bedside Commode # Voids 1 0 0 # Bowel Movements 1 1 0 - Constitutional Constitutional Comment(s): less interactive and more lethargic on today's encounter - EENT EENT Comment(s): right eye periorbital edema - Respiratory Respiratory: bilateral: rhonchi, wheezing - Cardiovascular Rhythm: regular - Gastrointestinal General gastrointestinal: Present: soft. Absent: distended - Integumentary Integumentary: Absent: rash - Neurologic Neurologic: Absent: focal deficits - Labs CBC & Chem 7: 09/08/22 04:16 09/08/22 14:32 Labs: Abnormal Lab Results - Last 24 Hours (Table) 09/08/22 09/08/22 09/08/22 Range/Units 04:16 04:16 04:16 WBC 37.8 H (3.8-10.6) k/uL RBC 2.50 L (3.80-5.40) m/uL Hgb 8.8 L (11.4-16.0) gm/dL Hct 26.2 L (34.0-46.0) % MCV 105.2 H (80.0-100.0) fL MCH 35.1 H (25.0-35.0) pg RDW 23.8 H (11.5-15.5) % Plt Count 121 L (150-450) k/uL Macrocytosis Marked A INR 1.2 H (<1.2) Chloride 109 H (98-107) mmol/L Carbon Dioxide 32 H (22-30) mmol/L Creatinine 0.27 L (0.52-1.04) mg/dL Glucose 118 H (74-99) mg/dL POC Glucose (mg/dL) (70-110) mg/dL Calcium 7.4 L (8.4-10.2) mg/dL Phosphorus 1.9 L (2.5-4.5) mg/dL AST 74 H (14-36) U/L Alkaline Phosphatase 376 H (38-126) U/L Lactate Dehydrogenase (313-618) U/L Total Protein 4.8 L (6.3-8.2) g/dL Albumin 2.0 L (3.5-5.0) g/dL 09/08/22 09/08/22 Range/Units 04:16 07:01 WBC (3.8-10.6) k/uL RBC (3.80-5.40) m/uL Hgb (11.4-16.0) gm/dL Hct (34.0-46.0) % MCV (80.0-100.0) fL MCH (25.0-35.0) pg RDW (11.5-15.5) % Plt Count (150-450) k/uL Macrocytosis INR (<1.2) Chloride (98-107) mmol/L Carbon Dioxide (22-30) mmol/L Creatinine (0.52-1.04) mg/dL Glucose (74-99) mg/dL POC Glucose (mg/dL) 123 H (70-110) mg/dL Calcium (8.4-10.2) mg/dL Phosphorus (2.5-4.5) mg/dL AST (14-36) U/L Alkaline Phosphatase (38-126) U/L Lactate Dehydrogenase 738 H (313-618) U/L Total Protein (6.3-8.2) g/dL Albumin (3.5-5.0) g/dL Microbiology - Last 24 Hours (Table) 09/07/22 11:05 Gram Stain - Preliminary Sputum Sputum Culture - Preliminary 09/06/22 15:40 Blood Culture - Preliminary Blood No Growth after 24 hours 09/06/22 15:40 Blood Culture - Preliminary Blood No Growth after 24 hours Assessment and Plan Assessment: Ms. Augustin is a 62-year-old female with a past medical history significant for squamous cell carcinoma of the tongue with potential metastasis to the right eye currently on systemic treatment of unclear etiology who presented with acute metabolic encephalopathy found to have acute hypoxic respiratory failure secondary to multifocal pneumonia. (1) Multifocal pneumonia Current Visit: Yes Status: Acute Code(s): J18.9 - PNEUMONIA, UNSPECIFIED ORGANISM SNOMED Code(s): 459106987 (2) Cancer of tongue Current Visit: Yes Status: Acute Code(s): C02.9 - MALIGNANT NEOPLASM OF TONGUE, UNSPECIFIED SNOMED Code(s): 556520933 (3) Anemia Current Visit: Yes Status: Acute Code(s): D64.9 - ANEMIA, UNSPECIFIED SNOMED Code(s): 641521721 Plan: #Squamous cell carcinoma of the tongue -Per as documented in the medical records, she has metastasis to the right eye -She receives her care with Dr. 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 Augustin Notes having received 2 cycles of treatment so far -Following discussion with her , she has been receiving 5- FU/carboplatin/pembrolizumab, last cycle was bout 3 weeks ago -Imaging was not consistent with immunotherapy induced pneumonitis -No indication for IV steroids at this time, but could be considered if she continues to clinically worsen and infectious work-up remains negative -We will continue follow-up on medical records and she will need outpatient follow-up with her primary oncologist Dr. Cohen #Multifocal pneumonia -Complicated by acute hypoxic respiratory failure and septic shock requiring supplemental oxygen through-flow nasal cannula and norepinephrine treatment -CT PE reveals bilateral consolidations, groundglass opacities, and tree-in-bud opacities with no evidence of pulmonary embolism -This is likely a complication of systemic treatment for her squamous cell carcinoma of the tongue -Started on vancomycin and Zosyn and appears to be clinically improving -Continue broad-spectrum antibiotics -Follow-up infectious workup ordered on admission including blood cultures, UA with reflux culture, and sputum culture -Given her worsening status on today's encounter, I do recommend ID consultation for additional work-up and management recommendations -Work-up for fungal and atypical organisms should be considered #Macrocytic anemia -Likely multifactorial due to systemic treatment with chemotherapy along with anemia of inflammation secondary to current infection -Hemoglobin is 8.8 from 9.4 on initial presentation -Given her worsening clinical status, we have initiated an anemia work-up to assess for potential contributing etiologies besides anemia of inflammation
--- NOTE | 2022-09-08 17:32 | P.PN ---
Subjective Progress Note Date: 09/08/22 (maria e charting seen at 0915) Patient is a 62-year-old female with a history of 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 On arrival to the ER vital signs showed tachycardia with a pulse of 126 initially her blood pressure was normal but quickly dropped to 73/48. Initial laboratory analysis showed white blood cell count 36.5, hemoglobin 6.6, platelets 133, INR 1.3, d-dimer 3.55, troponin 0.253, alkaline phosphatase 278, serum albumin 1.9, calcium 6.7. VBG showed a pH of 7.27 with a pCO2 of 64. Influenza A/B/RSV/COVID-[address] head showed large soft tissue mass in the right middle cranial fossa with extension into the right mandibular space was surrounding osseous structure. CTA of the chest showed severe airspace disease within the right upper lobe with the remainder of the lungs showing extensive disease and tree and bud appearance, possible early cavitary changes in the right aspect packs and right upper lobe. Correlate for atypical mycobacterial or fungal infection or extensive pneumonia. Scattered endobronchial opacifications/mucoid debris in the lower lobes. The ER she was given 2 L of normal saline but remained hypotensive and required levo. She was started on Vanco and Zosyn. One unit of packed red blood cells was ordered. Arrangements are made for admission to the ICU. She continued to do better and became awake. Oncology was consulted. They did recommend infectious disease consultation. She was also followed by pulmonary. Patient seen and examined at bedside. She is awake, alert, and communicative to me on exam. She denies any shortness of breath. She is talking about wanting her Lovenox injected into her arm and sedatives to her abdomen. She denies any pain at this time. General: nontoxic, no distress, appears at stated age Gen.: Ill appearing, no distress, appears older than stated age. Derm: warm, dry Head: atraumatic, normocephalic, symmetric Eyes: EOMI, no lid lag, anicteric sclera Mouth: no lip lesion, mucus membranes moist, garbled speech and difficult to understand Cardiovascular: S1S2 reg, no murmur, positive posterior tibial pulse bilateral, Lungs: Coarse breath sounds bilateral, no rhonchi, no rales , no accessory muscle use Abdominal: soft, nontender to palpation, no guarding, no appreciable organomegaly Ext: no gross muscle atrophy, no edema, no contractures Neuro: CN II-XI grossly intact, no focal neuro deficits Psych: Alert, oriented, appropriate affect Assessment/Plan: Pneumonia, possible gram-negative or MRSA related with recent chemo Septic shock Acute hypoxic respiratory failure Acute metabolic encephalopathy, resolved -Concerns for possible aspiration event with recent vomiting -continue Victor Manuel Garcia -Consult infectious disease -Critical care and pulmonary recommendations. - sputum culture if able. -Critical care recs, oncology recs -IV fluids -Levo off 09/07 Anemia, unknown cause Thrombocytopenia - possibly chemo related - s/p 1 unit packed red blood cells -Follow CBC - oncology recs appreciated and anemia work up was initiated. Severe protein calorie malnutrition -conitnue on TF as recommended by dietitian Squamous cell carcinoma of the tongue with metastasis to the right eye - Await records from oncologist's office - oncology recs: on 5fu/cisplantium based chemo Elevated troponin, Type II NSTEMI due to hypotension - await echo Prognosis guarded Received phone alert from nurse patient and have decided on DNR status. Ordered entered, I did discuss this with and admission and he wanted to speak with her further about it. DVT prophylaxis: SCDs Discussed with: patient, nursing Anticipated discharge date: pending clinical course Anticipated discharge place: pending clinical course A total of 35 minutes was spent on the care of this complex patient more than 50% of the time was spent in counseling and care coordination. Active Medications Generic Name Dose Route Start Last Admin Trade Name Freq PRN Reason Stop Dose Admin Acetaminophen 650 mg 09/06/22 14:52 Acetaminophen Tab 325 Mg Tab PO Q4HR PRN Fever and/or Mild Pain Albuterol/Ipratropium 3 ml 09/06/22 16:00 09/07/22 15:20 Ipratropium-Albuterol 3 Ml Neb INHALATION 3 ml RT-QID LONG Administration Albuterol/Ipratropium 3 ml 09/07/22 09:23 Ipratropium-Albuterol 3 Ml Neb INHALATION RT-Q2H PRN Shortness Of Breath Or Wheezing Bisacodyl 10 mg 09/06/22 18:37 Bisacodyl 10 Mg Supp RECTAL ONCE PRN Constipation Enoxaparin Sodium 40 mg 09/07/22 09:00 09/07/22 11:28 Enoxaparin 40 Mg/0.4 Ml Syringe SQ 40 mg DAILY LONG Administration Famotidine 20 mg 09/06/22 18:46 Famotidine 20 Mg Tab PEG/G-TUBE DAILY PRN acid reflux Piperacillin Sod/Tazobactam 100 mls @ 25 mls/hr 09/07/22 00:00 09/07/22 16:24 Sod 3.375 gm/ Sodium Chloride IVPB 25 mls/hr Q8HR LONG Administration Protocol Vancomycin HCl 750 mg/ Sodium 250 mls @ 125 mls/hr 09/07/22 04:00 09/07/22 16:24 Chloride IVPB 125 mls/hr Q12H LONG Administration Sodium Chloride 1,000 mls @ 75 mls/hr 09/07/22 09:30 09/07/22 11:30 Saline 0.9% IV 75 mls/hr .[id number] LONG Administration Norepinephrine Bitartrate 4 mg 254 mls @ 5.444 mls/hr 09/07/22 13:30 09/07/22 15:14 / Sodium Chloride IV 0 mcg/kg/min .Q24H LONG 0 mls/hr Titration Protocol 0.03 MCG/KG/MIN Lorazepam 0.5 mg 09/06/22 18:37 Lorazepam 2 Mg/Ml Inj IV Q6HR PRN Anxiety Melatonin 3 mg 09/06/22 18:37 Melatonin 3 Mg Tablet PEG/G-TUBE HS PRN Insomnia Metoclopramide HCl 10 mg 09/06/22 18:46 Metoclopramide 10 Mg Tab PEG/G-TUBE Q6H PRN Nausea Miscellaneous Information 1 each 09/06/22 18:37 Pneumonia Protocol Utilized 1 Each Misc PO ONCE PRN Per Protocol Miscellaneous Information 1 each 09/07/22 07:46 Potassium Replacement Protocol 1 Each Misc MISCELLANE DAILY PRN Per Protocol Protocol Miscellaneous Information 1 each 09/08/22 03:00 Vancomycin Trough Due 1 Each Misc MISCELLANE 09/08/22 03:01 ONCE ONE Morphine Sulfate 4 mg 09/06/22 18:37 09/07/22 03:59 Morphine Sulfate 4 Mg/Ml Syringe IVP 4 mg Q4HR PRN Administration Severe Pain (Scale 7 to 10) Naloxone HCl 0.2 mg 09/06/22 14:52 Naloxone 0.4 Mg/Ml 1 Ml Vial IV Q2M PRN Opioid Reversal Non-Formulary Medication 15 mg 09/07/22 16:00 09/07/22 14:59 Oxycodone 5mg/5ml PEG/G-TUBE 15 mg Q4HR LONG Administration Non Formulary Drug ( 250 mg 09/07/22 16:00 09/07/22 16:25 Gabapentin [ PEG/G-TUBE 250 mg Gabapentin Oral Soln TID LONG Administration ] 250 Mg/5 Ml) Patients Own Med ( 2 each 09/07/22 16:00 09/07/22 17:30 Methadone 10mg/Ml PO 2 each Concentrate) Q8HR LONG Administration Ondansetron HCl 4 mg 09/06/22 18:37 Ondansetron 4 Mg/2 Ml Vial IVP Q8HR PRN Nausea And Vomiting Pantoprazole Sodium 40 mg 09/07/22 09:00 09/07/22 08:15 Pantoprazole 40 Mg/10 Ml Vial IV 40 mg DAILY LONG Administration Objective - Vital Signs Vital signs: Vital Signs Temp 99.7 F H 09/08/22 17:00 Pulse 114 H 09/08/22 17:00 Resp 21 09/08/22 17:00 BP 120/66 09/08/22 17:00 Pulse Ox 90 L 09/08/22 17:00 FiO2 Intake & Output 09/07/22 09/08/22 09/08/22 18:59 06:59 18:59 Intake Total 1145.890 610 525 Output Total 200 0 825 Balance 945.890 610 -300 Weight 44.2 kg 48.2 kg Intake: IV 505 400 255 KVO 55 300 130 Piperacillin-Tazobactam 3 200 100 125 .375 gm In Sodium Chloride 0.9% 100 ml @ 25 mls/hr IVPB Q8HR [facility] Rx# :[id number] Vancomycin 750 mg In 250 Sodium Chloride 0.9% 250 ml @ 125 mls/hr IVPB ONCE ONE Rx#:[id number] Intake, IV Titration 490.890 Amount Norepinephrine 4 mg In 111.776 Sodium Chloride 0.9% 250 ml @ 0.03 MCG/KG/MIN 5. 444 mls/hr IV .Q24H ONE Rx#:[id number] Norepinephrine 4 mg In 4.114 Sodium Chloride 0.9% 250 ml @ 0.03 MCG/KG/MIN 5. 444 mls/hr IV .Q24H [facility] Rx#:[id number] Sodium Chloride 0.9% 1, 375 000 ml @ 75 mls/hr IV . [id number] [facility] Rx#:[id number] Tube Feeding 120 120 210 Other 30 90 60 Output: Urine 200 0 825 Other: Voiding Method Bedside Commode Bedside Commode Bedside Commode # Voids 1 0 0 # Bowel Movements 1 1 0 - Labs CBC & Chem 7: 09/08/22 04:16 09/08/22 14:32 Labs: Abnormal Lab Results - Last 24 Hours (Table) 09/08/22 09/08/22 09/08/22 Range/Units 04:16 04:16 04:16 WBC 37.8 H (3.8-10.6) k/uL RBC 2.50 L (3.80-5.40) m/uL Hgb 8.8 L (11.4-16.0) gm/dL Hct 26.2 L (34.0-46.0) % MCV 105.2 H (80.0-100.0) fL MCH 35.1 H (25.0-35.0) pg RDW 23.8 H (11.5-15.5) % Plt Count 121 L (150-450) k/uL Macrocytosis Marked A Haptoglobin (31.2-198.0) mg/dL INR 1.2 H (<1.2) Chloride 109 H (98-107) mmol/L Carbon Dioxide 32 H (22-30) mmol/L Creatinine 0.27 L (0.52-1.04) mg/dL Glucose 118 H (74-99) mg/dL POC Glucose (mg/dL) (70-110) mg/dL Calcium 7.4 L (8.4-10.2) mg/dL Phosphorus 1.9 L (2.5-4.5) mg/dL AST 74 H (14-36) U/L Alkaline Phosphatase 376 H (38-126) U/L Lactate Dehydrogenase (313-618) U/L Total Protein 4.8 L (6.3-8.2) g/dL Albumin 2.0 L (3.5-5.0) g/dL 09/08/22 09/08/22 09/08/22 Range/Units 04:16 04:16 07:01 WBC (3.8-10.6) k/uL RBC (3.80-5.40) m/uL Hgb (11.4-16.0) gm/dL Hct (34.0-46.0) % MCV (80.0-100.0) fL MCH (25.0-35.0) pg RDW (11.5-15.5) % Plt Count (150-450) k/uL Macrocytosis Haptoglobin 294.0 H (31.2-198.0) mg/dL INR (<1.2) Chloride (98-107) mmol/L Carbon Dioxide (22-30) mmol/L Creatinine (0.52-1.04) mg/dL Glucose (74-99) mg/dL POC Glucose (mg/dL) 123 H (70-110) mg/dL Calcium (8.4-10.2) mg/dL Phosphorus (2.5-4.5) mg/dL AST (14-36) U/L Alkaline Phosphatase (38-126) U/L Lactate Dehydrogenase 738 H (313-618) U/L Total Protein (6.3-8.2) g/dL Albumin (3.5-5.0) g/dL Microbiology - Last 24 Hours (Table) 09/07/22 11:05 Gram Stain - Preliminary Sputum Sputum Culture - Preliminary 09/06/22 15:40 Blood Culture - Preliminary Blood No Growth after 24 hours 09/06/22 15:40 Blood Culture - Preliminary Blood No Growth after 24 hours
[2022-09-08 18:42] LABS: % Iron Saturation 22.54 (12.00-45.00); Iron 33 ug/dL (50-170); Total Iron Binding Capacity 144 ug/dL (228-460)
[2022-09-08] MEDS: NOREPINEPHRINE 4 MG in SODIUM CHLORIDE 0.9% 250 ML IV SCH (18:54)
[2022-09-08 19:11] LABS: Vitamin B12 >3600.0 pg/mL (200.0-944.0)
[2022-09-09] MEDS: OXYCODONE PEG/G-TUBE SCH ×6 (00:30→19:57)
[2022-09-09] MEDS: VANCOMYCIN 750 MG in SODIUM CHLORIDE 0.9% 250 ML IVPB SCH ×3 (04:54→20:32)
[2022-09-09 07:08] LABS: Anisocytosis Moderate; HGB 8.9 gm/dL (11.4-16.0); Hypochromasia Marked; MCH 33.6 pg (25.0-35.0); MCHC 31.8 g/dL (31.0-37.0); MCV 105.7 fL (80.0-100.0); Macrocytosis Marked; Mean Platelet Volume 8.9; Platelet Count 106 k/uL (150-450); Poikilocytosis Slight; RBC 2.65 m/uL (3.80-5.40); WBC 42.5 k/uL (3.8-10.6)
[2022-09-09 07:24] LABS: African American GFR (CKD) >90 (>60 ml/min/1.73 sqM); Anion Gap 4 mmol/L; Blood Urea Nitrogen 9 mg/dL (7-17); Calcium 7.7 mg/dL (8.4-10.2); Carbon Dioxide 33 mmol/L (22-30); Chloride 109 mmol/L (98-107); Glucose 122 mg/dL (74-99); Magnesium 1.6 mg/dL (1.6-2.3); Non-African American GFR(CKD) >90 (>60 ml/min/1.73 sqM); Potassium 3.5 mmol/L (3.5-5.1); Sodium 146 mmol/L (137-145)
[2022-09-09] MEDS ORDERED: DILTIAZEM DRIP BOLUS FROM BAG 1 MG SOLN IV ONE (07:26)
[2022-09-09] MEDS ORDERED: Magnesium Replacement Protocol 1 EACH MISC MISCELLANE PRN (07:46)
[2022-09-09] MEDS: IPRATROPIUM-ALBUTEROL 3 ML NEB INHALATION SCH ×4 (08:01→20:15)
[2022-09-09] MEDS: DILTIAZEM 125 MG in SODIUM CHLORIDE 0.9% 100 ML IV SCH (08:04)
[2022-09-09] MEDS: MAGNESIUM SULFATE-D5W PMX 1 GM in DEXTROSE/WATER 1 100ML.BAG IVPB SCH ×2 (08:13→09:56)
[2022-09-09] MEDS: POTASSIUM BICARBONATE/CIT AC 20 MEQ TABLET.EFF NG-TUBE SCH ×2 (08:15→09:55)
--- NOTE | 2022-09-09 08:53 | XR ---
EXAMINATION TYPE: XR chest 1V portable DATE OF EXAM: 09/09/2022 Comparison: 09/08/2022 Clinical History: 62-year-old female SOB Findings: Right anterior chest wall injection port with catheter tip at the lower SVC. Heart appears mild to mo derately enlarged. Interstitial opacities persist with multifocal patchy and confluent airspace opaci ties right greater than left, worsened from prior. There is a new small left apical pneumothorax sukhdev uring 1.8 cm. Impression: 1. New small left apical pneumothorax measuring 1.8 cm. Findings called to nurse Rashida in 2SICU at 8:49am. 2. Cardiomegaly and worsening patchy and confluent bilateral airspace disease, right greater than lef t.
[2022-09-09] MEDS: PIPERACILLIN-TAZOBACTAM 3.375 GM in SODIUM CHLORIDE 0.9% 100 ML IVPB SCH ×2 (09:49→17:06)
[2022-09-09] MEDS: GABAPENTIN 250 MG/5 ML PEG/G-TUBE SCH ×3 (09:49→22:02)
[2022-09-09] MEDS: METHADONE 10 MG/ML PO SCH ×2 (09:50→17:16)
[2022-09-09] MEDS: ENOXAPARIN 40 MG/0.4 ML SYRINGE SQ SCH (09:52)
[2022-09-09] MEDS: FOLIC ACID 1 MG TAB PO SCH (09:55)
[2022-09-09] MEDS: PANTOPRAZOLE 40 MG/10 ML VIAL IV SCH (10:00)
--- NOTE | 2022-09-09 10:49 | P.CRDCN ---
History of Present Illness Consult date: 09/09/22 Chief complaint: Shortness of breath History of present illness: The patient is a 62-year-old female patient who was unfortunate with a past medi cody history significant for history of tonic/oral cancer with metastasis who was admitted to the hospital a few days ago after she was found to be unresponsive and she was brought by ambulance. The patient was subsequently evaluated by the critical care team/internal medicine team and she was diagnosed with sepsis related to pneumonia where she was admitted to the intensive care and was hypotensive requiring norepinephrine for few days. Currently she is off norepinephrine. No prior cardiovascular history. We consulted to see the patient because off cardiac arrhythmia. It was noted on the monitor that the patient did have an episode of tachycardia concerning for SVT. I did review the rhythm strip and indicates what it seems to be sinus tachycardia and I could not appreciate any SVT or atrial fibrillation. Currently the patient is in sinus rhythm with sinus tachycardia which is likely related to respiratory distress. No indication that the patient was experiencing any symptoms of chest pain or chest discomfort. No feeling of heart racing or fluttering. Anyway the patient somewhat is a poor historian and the history is limited. At this point I am going to obtain TSH and free T4, obtain an echocardiogram was Doppler, and DC the Cardizem IV which was started earlier today, and start the patient on Toprol-XL at 25 mg by mouth daily. We'll continue monitor for any cardiac arrhythmia. 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, bellspalsy R History of Any Multi-Drug Resistant Organisms: None Reported Past Surgical History: Unable to Obtain Additional Past Surgical History / Comment(s): peg tube, mediprot Past Anesthesia/Blood Transfusion Reactions: No Reported Reaction Past Psychological History: No Psychological Hx Reported Smoking Status: Former smoker Past Alcohol Use History: None Reported Past Drug Use History: Unable to Obtain - Past Family History family Additional Family Medical History / Comment(s): no hx of head and neck cancer at home Medications and Allergies Home Medications Medication Instructions Recorded Confirmed Type Acetaminophen Oral Susp [Tylenol] 480 mg PEG/G-TUBE Q4H 09/06/22 09/06/22 History Famotidine [Pepcid] 20 mg PEG/G-TUBE DAILY PRN 09/06/22 09/06/22 History Gabapentin [Gabapentin Oral Soln] 250 mg PEG/G-TUBE TID 09/06/22 09/06/22 History Loperamide HCl [Loperamide HCl 1.33 mg PEG/G-TUBE Q6H PRN 09/06/22 09/06/22 History Oral Susp] Methadone HCl [Methadone Intensol] 10 mg PEG/G-TUBE Q8H 09/06/22 09/06/22 History Metoclopramide [Reglan] 10 mg PEG/G-TUBE Q6H PRN 09/06/22 09/06/22 History OLANZapine ODT [ZyPREXA ZYDIS] 10 mg PEG/G-TUBE DIRECTED 09/06/22 09/06/22 History Oxycodone 5mg/5ml 15 mg PEG/G-TUBE Q4H 09/06/22 09/06/22 History Allergies Allergy/AdvReac Type Severity Reaction Status Date / Time No Known Allergies Allergy Verified 09/06/22 11:14 Physical Exam Vitals: Vital Signs Temp Pulse Resp BP Pulse Ox FiO2 09/09/22 10:41 100 09/09/22 10:00 108 H 21 109/60 94 L 09/09/22 09:00 114 H 22 114/70 97 09/09/22 08:11 125 H 09/09/22 08:01 125 H 09/09/22 08:00 98.9 F 125 H 23 152/82 97 100 09/09/22 07:39 100 09/09/22 07:37 100 09/09/22 07:00 161 H 30 H 132/95 78 L 09/09/22 06:00 112 H 17 111/96 89 L 09/09/22 05:00 113 H 16 133/69 87 L 09/09/22 04:11 91 L 09/09/22 04:00 99.0 F 115 H 20 124/72 93 L 09/09/22 03:00 108 H 16 116/63 91 L 09/09/22 02:00 105 H 15 128/80 92 L 09/09/22 01:00 118 H 21 139/86 84 L 09/09/22 00:58 79 L 09/09/22 00:00 98.8 F 126 H 36 H 116/61 88 L 09/08/22 23:02 101 H 12 96 09/08/22 23:00 96 13 108/61 96 09/08/22 22:00 97 12 106/61 96 09/08/22 21:00 101 H 12 113/60 94 L 09/08/22 20:00 99.8 F H 98 12 118/62 96 09/08/22 19:28 101 H 09/08/22 19:16 105 H 09/08/22 19:00 104 H 18 102/59 96 09/08/22 18:00 98 14 125/70 92 L 09/08/22 17:00 99.7 F H 114 H 21 120/66 90 L 09/08/22 16:06 123 H 09/08/22 16:00 108 H 18 136/70 94 L 09/08/22 15:51 121 H 94 L 09/08/22 15:00 96.4 F L 96 25 H 113/64 89 L 09/08/22 14:00 89 14 113/66 93 L 09/08/22 13:30 91 15 113/66 89 L 09/08/22 13:00 97 12 126/70 92 L 09/08/22 12:30 101 H 15 126/70 92 L 09/08/22 12:00 99.2 F 103 H 13 109/69 92 L 09/08/22 11:30 99 15 109/69 94 L 09/08/22 11:22 100 09/08/22 11:10 87 09/08/22 11:00 100 15 122/65 95 Intake and Output 09/08/22 09/09/22 09/09/22 22:59 06:59 14:59 Intake Total 615 810 222.667 Output Total 825 1300 Balance -210 -490 222.667 Intake: IV 465 510 180 KVO 140 160 80 Piperacillin-Tazobactam 3 75 100 100 .375 gm In Sodium Chloride 0.9% 100 ml @ 25 mls/hr IVPB Q8HR LONG Rx# :[id number] Vancomycin 750 mg In 250 250 Sodium Chloride 0.9% 250 ml @ 125 mls/hr IVPB Q12H LONG Rx#:[id number] Intake, IV Titration 12.667 Amount Diltiazem 125 mg In 12.667 Sodium Chloride 0.9% 100 ml @ 5 MG/HR 5 mls/hr IV .Q24H LONG Rx#:[id number] Tube Feeding 120 240 30 Other 30 60 Output: Urine 825 1300 Other: Voiding Method Bedside Commode Bedside Commode # Bowel Movements 1 Weight 50.1 kg - Constitutional General appearance: no acute distress - Respiratory Respiratory: bilateral: CTA - Cardiovascular Rhythm: regular Results 09/09/22 06:32 09/09/22 06:32 Cardiac Enzymes 09/08/22 Range/Units 04:16 Lactate Dehydrogenase 738 H (313-618) U/L CBC 09/09/22 Range/Units 06:32 WBC 42.5 H (3.8-10.6) k/uL RBC 2.65 L (3.80-5.40) m/uL Hgb 8.9 L (11.4-16.0) gm/dL Hct 28.0 L (34.0-46.0) % Plt Count 106 L (150-450) k/uL Comprehensive Metabolic Panel 09/08/22 09/09/22 Range/Units 14:32 06:32 Sodium 146 H (137-145) mmol/L Potassium 3.7 3.5 (3.5-5.1) mmol/L Chloride 109 H (98-107) mmol/L Carbon Dioxide 33 H (22-30) mmol/L BUN 9 (7-17) mg/dL Creatinine 0.31 L (0.52-1.04) mg/dL Glucose 122 H (74-99) mg/dL Calcium 7.7 L (8.4-10.2) mg/dL Current Medications Generic Name Dose Route Start Last Admin Trade Name Freq PRN Reason Stop Dose Admin Acetaminophen 650 mg 09/06/22 14:52 Acetaminophen Tab 325 Mg Tab PO Q4HR PRN Fever and/or Mild Pain Albuterol/Ipratropium 3 ml 09/06/22 16:00 09/09/22 08:01 Ipratropium-Albuterol 3 Ml Neb INHALATION 3 ml RT-QID [facility] Administration Albuterol/Ipratropium 3 ml 09/07/22 09:23 Ipratropium-Albuterol 3 Ml Neb INHALATION RT-Q2H PRN Shortness Of Breath Or Wheezing Bisacodyl 10 mg 09/06/22 18:37 Bisacodyl 10 Mg Supp RECTAL ONCE PRN Constipation Enoxaparin Sodium 40 mg 09/07/22 09:00 09/09/22 09:52 Enoxaparin 40 Mg/0.4 Ml Syringe SQ 40 mg DAILY LONG Administration Famotidine 20 mg 09/06/22 18:46 Famotidine 20 Mg Tab PEG/G-TUBE DAILY PRN acid reflux Folic Acid 1 mg 09/09/22 09:00 09/09/22 09:55 Folic Acid 1 Mg Tab PO 1 mg DAILY LONG Administration Piperacillin Sod/Tazobactam 100 mls @ 25 mls/hr 09/07/22 00:00 09/09/22 09:49 Sod 3.375 gm/ Sodium Chloride IVPB 25 mls/hr Q8HR LONG Administration Protocol Norepinephrine Bitartrate 4 mg 254 mls @ 5.444 mls/hr 09/07/22 13:30 09/08/22 18:54 / Sodium Chloride IV Not Given .Q24H LONG Protocol 0.03 MCG/KG/MIN Vancomycin HCl 750 mg/ Sodium 250 mls @ 125 mls/hr 09/08/22 13:00 09/09/22 04:54 Chloride IVPB 125 mls/hr Q8H LONG Administration Diltiazem HCl 125 mg/ Sodium 125 mls @ 5 mls/hr 09/09/22 07:30 09/09/22 10:36 Chloride IV 0 mg/hr .Q24H LONG 0 mls/hr Infusion 5 MG/HR Lorazepam 0.5 mg 09/06/22 18:37 Lorazepam 2 Mg/Ml Inj IV Q6HR PRN Anxiety Melatonin 3 mg 09/06/22 18:37 Melatonin 3 Mg Tablet PEG/G-TUBE HS PRN Insomnia Metoclopramide HCl 10 mg 09/06/22 18:46 Metoclopramide 10 Mg Tab PEG/G-TUBE Q6H PRN Nausea Metoprolol Succinate 25 mg 09/09/22 10:15 Metoprolol Succinate (Er) 25 Mg Tab.Er.24h PO DAILY LONG Miscellaneous Information 1 each 09/06/22 18:37 Pneumonia Protocol Utilized 1 Each Misc PO ONCE PRN Per Protocol Miscellaneous Information 1 each 09/07/22 07:46 Potassium Replacement Protocol 1 Each Misc MISCELLANE DAILY PRN Per Protocol Protocol Miscellaneous Information 1 each 09/09/22 07:46 Magnesium Replacement Protocol 1 Each Misc MISCELLANE DAILY PRN Per Protocol Protocol Miscellaneous Information 1 each 09/10/22 04:00 Vancomycin Trough Due 1 Each Misc MISCELLANE 09/10/22 04:01 ONCE ONE Morphine Sulfate 4 mg 09/06/22 18:37 09/07/22 03:59 Morphine Sulfate 4 Mg/Ml Syringe IVP 4 mg Q4HR PRN Administration Severe Pain (Scale 7 to 10) Naloxone HCl 0.2 mg 09/06/22 14:52 Naloxone 0.4 Mg/Ml 1 Ml Vial IV Q2M PRN Opioid Reversal Non-Formulary Medication 15 mg 09/07/22 16:00 09/09/22 08:16 Oxycodone 5mg/5ml PEG/G-TUBE Not Given Q4HR LONG Non Formulary Drug ( 250 mg 09/07/22 16:00 09/09/22 09:49 Gabapentin [ PEG/G-TUBE 250 mg Gabapentin Oral Soln TID LONG Administration ] 250 Mg/5 Ml) Patients Own Med ( 2 each 09/07/22 16:00 09/09/22 09:50 Methadone 10mg/Ml PO 2 each Concentrate) Q8HR LONG Administration Ondansetron HCl 4 mg 09/06/22 18:37 Ondansetron 4 Mg/2 Ml Vial IVP Q8HR PRN Nausea And Vomiting Pantoprazole Sodium 40 mg 09/07/22 09:00 09/09/22 10:00 Pantoprazole 40 Mg/10 Ml Vial IV 40 mg DAILY LONG Administration Intake and Output 09/08/22 09/09/22 09/09/22 22:59 06:59 14:59 Intake Total 615 810 222.667 Output Total 825 1300 Balance -210 -490 222.667 Intake: IV 465 510 180 KVO 140 160 80 Piperacillin-Tazobactam 3 75 100 100 .375 gm In Sodium Chloride 0.9% 100 ml @ 25 mls/hr IVPB Q8HR LONG Rx# :[id number] Vancomycin 750 mg In 250 250 Sodium Chloride 0.9% 250 ml @ 125 mls/hr IVPB Q12H LONG Rx#:[id number] Intake, IV Titration 12.667 Amount Diltiazem 125 mg In 12.667 Sodium Chloride 0.9% 100 ml @ 5 MG/HR 5 mls/hr IV .Q24H LONG Rx#:[id number] Tube Feeding 120 240 30 Other 30 60 Output: Urine 825 1300 Other: Voiding Method Bedside Commode Bedside Commode # Bowel Movements 1 Weight 50.1 kg 09/09/22 06:32 09/09/22 06:32 Assessment and Plan Assessment: Assessment Change in mental status which has somewhat improved Pneumonia/sepsis Hypertension which has improved History of oral cancer with metastasis Sinus tachycardia Respiratory distress Plan DC Cardizem IV and start the patient on beta danny orally Obtain TSH and free T4 Obtain an echocardiogram was Doppler Follow-up with the patient
[2022-09-09] MEDS: METOPROLOL SUCCINATE (ER) 25 MG TAB.ER.24H PO SCH (12:20)
--- NOTE | 2022-09-09 12:46 | P.PN ---
Subjective Progress Note Date: 09/09/22 Principal diagnosis: Squamous cell carcinoma of the base of the tongue with possible metastasis to the right eye - T-max 99.8 F overnight - she has developed progressive acute hypoxic respiratory failure, desaturating to 78% on 15 L high flow nasal cannula, and has been placed on BiPAP - chest x-ray this morning revealed small 1.8 cm apical pneumothorax with confluent consolidation more prominent on the right than on the left - she is more alert this morning on BiPAP, she denies any pain or discomfort Objective - Vital Signs Vital signs: Vital Signs Temp 98.9 F 09/09/22 08:00 Pulse 106 H 09/09/22 11:07 Resp 24 09/09/22 11:00 BP 116/75 09/09/22 11:00 Pulse Ox 99 09/09/22 11:00 FiO2 100 09/09/22 10:41 Intake & Output 09/08/22 09/09/22 09/09/22 18:59 06:59 18:59 Intake Total 570 1285 242.667 Output Total 825 1300 Balance -255 -15 242.667 Weight 50.1 kg Intake: IV 300 865 200 KVO 150 240 100 Piperacillin-Tazobactam 3 150 125 100 .375 gm In Sodium Chloride 0.9% 100 ml @ 25 mls/hr IVPB Q8HR LONG Rx# :[id number] Vancomycin 750 mg In 500 Sodium Chloride 0.9% 250 ml @ 125 mls/hr IVPB Q12H LONG Rx#:[id number] Intake, IV Titration 12.667 Amount Diltiazem 125 mg In 12.667 Sodium Chloride 0.9% 100 ml @ 5 MG/HR 5 mls/hr IV .Q24H LONG Rx#:[id number] Tube Feeding 210 330 30 Other 60 90 Output: Urine 825 1300 Other: Voiding Method Bedside Commode Bedside Commode Bedside Commode # Voids 0 # Bowel Movements 1 1 - Constitutional Constitutional Comment(s): noted usage of accessory muscles in the neck, not previously seen on prior encounters General appearance: Present: thin - EENT EENT Comment(s): periorbital edema around the right eye unchanged from prior visit - Respiratory Respiratory: bilateral: rhonchi, wheezing ( wheezing improved compared to prior examination) - Cardiovascular Rhythm: regular - Gastrointestinal General gastrointestinal: Present: soft. Absent: distended - Integumentary Integumentary: Absent: rash - Neurologic Neurologic: Absent: focal deficits - Labs CBC & Chem 7: 09/09/22 06:32 09/09/22 06:32 Labs: Abnormal Lab Results - Last 24 Hours (Table) 09/08/22 09/08/22 09/08/22 Range/Units 04:16 04:16 04:16 WBC (3.8-10.6) k/uL RBC (3.80-5.40) m/uL Hgb (11.4-16.0) gm/dL Hct (34.0-46.0) % MCV (80.0-100.0) fL RDW (11.5-15.5) % Plt Count (150-450) k/uL Macrocytosis Haptoglobin 294.0 H (31.2-198.0) mg/dL Sodium (137-145) mmol/L Chloride (98-107) mmol/L Carbon Dioxide (22-30) mmol/L Creatinine (0.52-1.04) mg/dL Glucose (74-99) mg/dL Calcium (8.4-10.2) mg/dL Iron 33 L (50-170) ug/dL TIBC 144 L (228-460) ug/dL Transferrin 103.0 L (204.0-354.0) mg/dL Ferritin 2477.0 H (10.0-291.0) ng/mL Vitamin B12 >3600.0 H (200.0-944.0) pg/mL Folate 2.90 L (4.40-31.00) ng/mL 09/09/22 09/09/22 Range/Units 06:32 06:32 WBC 42.5 H (3.8-10.6) k/uL RBC 2.65 L (3.80-5.40) m/uL Hgb 8.9 L (11.4-16.0) gm/dL Hct 28.0 L (34.0-46.0) % MCV 105.7 H (80.0-100.0) fL RDW 23.0 H (11.5-15.5) % Plt Count 106 L (150-450) k/uL Macrocytosis Marked A Haptoglobin (31.2-198.0) mg/dL Sodium 146 H (137-145) mmol/L Chloride 109 H (98-107) mmol/L Carbon Dioxide 33 H (22-30) mmol/L Creatinine 0.31 L (0.52-1.04) mg/dL Glucose 122 H (74-99) mg/dL Calcium 7.7 L (8.4-10.2) mg/dL Iron (50-170) ug/dL TIBC (228-460) ug/dL Transferrin (204.0-354.0) mg/dL Ferritin (10.0-291.0) ng/mL Vitamin B12 (200.0-944.0) pg/mL Folate (4.40-31.00) ng/mL Microbiology - Last 24 Hours (Table) 09/06/22 15:40 Blood Culture - Preliminary Blood No Growth after 48 hours 09/06/22 15:40 Blood Culture - Preliminary Blood No Growth after 48 hours 09/07/22 11:05 Gram Stain - Preliminary Sputum Sputum Culture - Preliminary - Imaging and Cardiology Chest x-ray: report reviewed, image reviewed CT scan - chest: report reviewed, image reviewed Assessment and Plan Assessment: Ms. Augustin is a 62-year-old female with a past medical history significant for squamous cell carcinoma of the tongue with potential metastasis to the right eye currently on systemic treatment of unclear etiology who presented with acute metabolic encephalopathy found to have acute hypoxic respiratory failure secondary to multifocal pneumonia. (1) Multifocal pneumonia Current Visit: Yes Status: Acute Code(s): J18.9 - PNEUMONIA, UNSPECIFIED ORGANISM SNOMED Code(s): 305014555 (2) Cancer of tongue Current Visit: Yes Status: Acute Code(s): C02.9 - MALIGNANT NEOPLASM OF TONGUE, UNSPECIFIED SNOMED Code(s): 835185110 (3) Anemia Current Visit: Yes Status: Acute Code(s): D64.9 - ANEMIA, UNSPECIFIED SNOMED Code(s): 375024203 Plan: #Squamous cell carcinoma of the tongue -Per as documented in the medical records, she has metastasis to the right eye -She receives her care with Dr. 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 Augustin Notes having received 2 cycles of 5-FU/carboplatin/pembrolizumab approximately last received 3 weeks ago -We did obtain the number to her oncologist Dr. Cohen -We will notify him of this admission tomorrow when his clinic is open #Multifocal pneumonia -Complicated by acute hypoxic respiratory failure and septic shock requiring supplemental oxygen through-flow nasal cannula and norepinephrine treatment -CT PE reveals bilateral consolidations, groundglass opacities, and tree-in-bud opacities with no evidence of pulmonary embolism -This is likely a complication of systemic treatment for her squamous cell carcinoma of the tongue -Started on vancomycin and Zosyn and had initial improvement on admission and has had progressive decline in respiratory status over the past 36 to 48 hours -ID has been consulted regarding additional work-up and/or antimicrobials, appreciate their assistance -She has no evidence of immunotherapy induced pneumonitis at this time per my review of imaging requiring IV steroids, but this could be considered from a not oncologic perspective as determined by the primary team or pulmonology #Macrocytic anemia -Likely multifactorial due to systemic treatment with chemotherapy along with anemia of inflammation secondary to current infection -Hemoglobin is stable at 8.9 from 8.8 yesterday -Anemia work-up was significant for low folate along with anemia of inflammation secondary to infection -Folate 1 g daily can be added once her respiratory status is improved
--- NOTE | 2022-09-09 13:09 | P.PN ---
Subjective Progress Note Date: 09/09/22 Principal diagnosis: Pneumonia. Pulmonary/critical care consultation dated 09/06/2022. 62-year-old female seen by Dr. Diego in the emergency room, for loss of consciousness. She was seen initially at 10:48 AM, today. The patient apparently was found to be unresponsive, and EMS was called, she was apparently cyanotic and unresponsive. Oxygen was provided and the patient apparently improved. 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 The patient was very difficult to understand according to the ER physician. Most of the history apparently was obtained from the family member. The patient was discovered to have hypotension, was given 2 L of fluid, and started on norepinephrine. The patient is currently seeing an ER, trauma 2. The patient is on a nonrebreather mask, and getting norepinephrine at 0.061 mcg/kg/m. She was given Zosyn and vancomycin. Home medications included Tylenol, methadone, loperamide, oxycodone, gabapentin, Reglan, Zyprexa, and Pepcid. She has no known ALLERGIES. Laboratory data includes a white count of 36.5, hemoglobin 6.6, hematocrit 21.4, and a platelet count of 133,000. PT 13.3, INR 1.3, and d-dimer was 3.55. Venous blood gas showed a CO2 of 64, and a pH is 7.27. Sodium 136, potassium 3.6, chlorides 100, CO2 30, BUN 19, creatinine 0.61. Troponin was 0.253. Albumin 1.9. Testing for influenza, respiratory syncytial virus, and coronavirus, were all negative. Brain CT showed a large soft tissue mass within the right middle cranial fossa with inferior extension into the right mandible space with surrounding osseous destruction. Chest x-ray shows diffuse abnormalities throughout both lungs, more right-sided than left-sided, and more extensive consolidation particularly in the right upper lobe. CT angiogram was negative for pulmonary embolism, but did show bilateral airspace disease, with the greatest degree of consolidation, in the right upper lobe. Progress note dated 09/07/2022. The patient is seen today in room 262. She was seen in consultation yesterday, in the emergency department. She's currently on 6 L of oxygen. She's getting saline at 20 mL an hour, and norepinephrine at 4 mcg/m. She is also on Zosyn and vancomycin diffuse bilateral pneumonia. Clinically, she's about the same. She had an uneventful night according to the nurse. White count 45.5, hemoglobin 9.4, hematocrit 28.8, platelet count 238,000. Opium 140, potassium 3.2, chlorides 104, CO2 29, BUN 19, and creatinine 0.34. The rest of the labs look unremarkable save for an albumin of 2.1. Chest x-ray shows diffuse bilateral airspace disease. Chest x-ray is essentially unchanged, with most of the abnormality occurring in the right upper lobe. Progress note dated 09/08/2022. The patient is again seen today in room 262. She's on 10 L high flow oxygen. She's getting saline IV at KVO. She's getting tube feeds at 30 mL an hour, which is her goal. She is currently on Zosyn and vancomycin for her pneumonia. White count is 37.8, hemoglobin 8.8, hematocrit 26.2, and platelet count 121,000. Sodium 142, potassium 3.6, chlorides 109, CO2 32, BUN 13, creatinine 0.27. Chest x-ray show some improvement compared to initial x-rays. Progress note dated 09/09/2022. The patient is again seen today in room 262. The patient developed worsening respiratory status and tachycardia overnight. The patient is currently on BiPAP, with settings of 12/6 and 100%. The patient's getting saline at keep vein open. She was started initially on Cardizem drip, for presumed SVT. In fact, the patient had sinus tachycardia. The patient's getting TwoCal HN, at 30 mL an hour, which is goal. The BiPAP was changed from an IPAP of 12, down to an IPAP of 8. The patient continues on Zosyn and vancomycin for bilateral pneumonia. Also, the patient's chest x-ray today showed a small left apical pneumothorax. The patient is now a DO NOT RESUSCITATE. White count is 42.5, hemoglobin 8.9, hematocrit 28, platelet count 106,000. Sodium is 146, potassium 3.5, chlorides 109, CO2 33, BUN 9, and creatinine 0.31. Objective - Vital Signs Vital signs: Vital Signs Temp 98.9 F 09/09/22 08:00 Pulse 106 H 09/09/22 11:07 Resp 24 09/09/22 11:00 BP 116/75 09/09/22 11:00 Pulse Ox 99 09/09/22 11:00 FiO2 100 09/09/22 10:41 Intake & Output 09/08/22 09/09/22 09/09/22 18:59 06:59 18:59 Intake Total 570 1285 262.667 Output Total 825 1300 600 Balance -255 -15 -337.333 Weight 50.1 kg Intake: IV 300 865 220 KVO 150 240 120 Piperacillin-Tazobactam 3 150 125 100 .375 gm In Sodium Chloride 0.9% 100 ml @ 25 mls/hr IVPB Q8HR LONG Rx# :[id number] Vancomycin 750 mg In 500 Sodium Chloride 0.9% 250 ml @ 125 mls/hr IVPB Q12H LONG Rx#:[id number] Intake, IV Titration 12.667 Amount Diltiazem 125 mg In 12.667 Sodium Chloride 0.9% 100 ml @ 5 MG/HR 5 mls/hr IV .Q24H LONG Rx#:[id number] Tube Feeding 210 330 30 Other 60 90 Output: Urine 825 1300 600 Other: Voiding Method Bedside Commode Bedside Commode Bedside Commode # Voids 0 # Bowel Movements 1 1 - Exam No acute distress, poorly responsive, currently on BiPAP. HEENT examination reveals a right facial droop. Neck supple. Full range of motion. No adenopathy thyromegaly or neck vein distention. Cardiovascular examination reveals regular rhythm rate. S1-S2 normal. No S3 or S4. No discernible murmur noted. Heart sounds are distant. Heart rate 106 bpm. The patient has a port in the right chest area. Lungs reveal scattered diffuse rhonchi. The patient does not take deep breaths. No wheezes. No crackles. Saturations are 99% on BiPAP treatment. Abdomen soft, without bowel sounds. Extremities are intact. No cyanosis or clubbing. 1+ edema is noted in the lower extremities. Skin is without rash or lesion. Neurologic examination is unchanged. - Labs CBC & Chem 7: 09/09/22 06:32 09/09/22 06:32 Labs: Abnormal Lab Results - Last 24 Hours (Table) 09/08/22 09/08/22 09/08/22 Range/Units 04:16 04:16 04:16 WBC (3.8-10.6) k/uL RBC (3.80-5.40) m/uL Hgb (11.4-16.0) gm/dL Hct (34.0-46.0) % MCV (80.0-100.0) fL RDW (11.5-15.5) % Plt Count (150-450) k/uL Macrocytosis Haptoglobin 294.0 H (31.2-198.0) mg/dL Sodium (137-145) mmol/L Chloride (98-107) mmol/L Carbon Dioxide (22-30) mmol/L Creatinine (0.52-1.04) mg/dL Glucose (74-99) mg/dL Calcium (8.4-10.2) mg/dL Iron 33 L (50-170) ug/dL TIBC 144 L (228-460) ug/dL Transferrin 103.0 L (204.0-354.0) mg/dL Ferritin 2477.0 H (10.0-291.0) ng/mL Vitamin B12 >3600.0 H (200.0-944.0) pg/mL Folate 2.90 L (4.40-31.00) ng/mL 09/09/22 09/09/22 Range/Units 06:32 06:32 WBC 42.5 H (3.8-10.6) k/uL RBC 2.65 L (3.80-5.40) m/uL Hgb 8.9 L (11.4-16.0) gm/dL Hct 28.0 L (34.0-46.0) % MCV 105.7 H (80.0-100.0) fL RDW 23.0 H (11.5-15.5) % Plt Count 106 L (150-450) k/uL Macrocytosis Marked A Haptoglobin (31.2-198.0) mg/dL Sodium 146 H (137-145) mmol/L Chloride 109 H (98-107) mmol/L Carbon Dioxide 33 H (22-30) mmol/L Creatinine 0.31 L (0.52-1.04) mg/dL Glucose 122 H (74-99) mg/dL Calcium 7.7 L (8.4-10.2) mg/dL Iron (50-170) ug/dL TIBC (228-460) ug/dL Transferrin (204.0-354.0) mg/dL Ferritin (10.0-291.0) ng/mL Vitamin B12 (200.0-944.0) pg/mL Folate (4.40-31.00) ng/mL Microbiology - Last 24 Hours (Table) 09/06/22 15:40 Blood Culture - Preliminary Blood No Growth after 48 hours 09/06/22 15:40 Blood Culture - Preliminary Blood No Growth after 48 hours Assessment and Plan Assessment: Acute mental status changes, with cyanosis, likely related to sepsis, and extensive bilateral pneumonia. 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 Acute hypotension, secondary to sepsis. Anemia. Thrombocytopenia. Respiratory acidosis. Severe hypoalbuminemia. Plan: Plan dated 09/06/2022. The patient is seen in the emergency department. The patient's currently on norepinephrine. She was given both Zosyn and vancomycin for pneumonia. She is on a nonrebreather mask. The patient was initially found to be unresponsive, with cyanosis. Currently, according to the hospital service, she is a full code. Labs, x-rays, and medications are reviewed. Some consideration should be given to transferring the patient to her facility of record. We will continue to follow make recommendations along the way. Plan dated 09/07/2022. The patient is seen today in room 262. The patient is currently on 6 L nasal cannula. She's receiving Zosyn and vancomycin for infection. She remains on norepinephrine at 4 mcg/m. We will continue to follow make recommendations along the way. Overall prognosis is very guarded. The patient is currently a full code. Plan dated 09/08/2022. The patient is again seen today in room 262. She was on 6 L of oxygen yesterday, and is now up to 10 L/m. She continues on Zosyn and vancomycin. Culture data is as far negative. The patient has been weaned off norepinephrine. Chest x-ray show some mild improvement. Mental status is still poor. We'll continue to follow and make recommendations along the way. Labs, x-rays, and medications are all reviewed. Plan dated 09/09/2022. The patient developed tachycardia, and respiratory distress overnight. The patient was placed on BiPAP, and her saturations are much improved, and she looks much more comfortable. In addition, the IPAP was reviewed and 12, down to 8. Also, the patient developed tachycardia. The nurse that called me thought it was SVT/atrial fibrillation, and therefore we started the patient on Cardizem drip. It appears that in fact the patient had only sinus tachycardia. Cardizem has been discontinued. Labs, x-rays, and medications are reviewed. Prognosis is guarded. We will continue to follow along and make recommendations. Time with Patient: Greater than 30
--- NOTE | 2022-09-09 14:06 | CA ---
Transthoracic Echo Report Name: Saulo Augustin Age: 62 Gender: F : 1960 Exam Date: 09/09/2022 09:04 Exam Location: [facility] Ht (in): 64 Wt (lb): 110 Ordering Physician: Cris Osman DO Attending/Referring Phys: Linus Cohen MD Dairy Farmer Pushpa Markham RDCS Procedure CPT: Indications: nstemi Cardiac Hx: Technical Quality: Fair Contrast 1: Total Dose (mL): Contrast 2: Total Dose (mL): MEASUREMENTS (Male / Female) Normal Values 2D ECHO LV Diastolic Diameter PLAX 3.4 cm 4.2 - 5.9 / 3.9 - 5.3 cm LV Systolic Diameter PLAX 2.9 cm IVS Diastolic Thickness 0.9 cm 0.6 - 1.0 / 0.6 - 0.9 cm LVPW Diastolic Thickness 0.9 cm 0.6 - 1.0 / 0.6 - 0.9 cm LV Relative Wall Thickness 0.5 RV Internal Dim ED PLAX 3.0 cm LV Diastolic Volume MOD BP 77.6 cm??? 67 - 155 / 56 - 104 cm??? LV Systolic Volume MOD BP 38.8 cm??? 22 - 58 / 19 - 49 cm??? LV Ejection Fraction MOD BP 50.0 % >= 55 % LV Cardiac Index MOD BP 2983.2 cm???/min???m??? LV Diastolic Volume MOD 4C 63.4 cm??? LV Systolic Volume MOD 4C 35.3 cm??? LV Ejection Fraction MOD 4C 44.2 % LV Cardiac Index MOD 4C 2156.6 cm???/min???m??? LV Diastolic Length 4C 7.6 cm LV Systolic Length 4C 6.2 cm LV Diastolic Volume MOD 2C 92.3 cm??? LV Systolic Volume MOD 2C 38.5 cm??? LV Ejection Fraction MOD 2C 58.3 % LV Cardiac Index MOD 2C 4141.9 cm???/min???m??? LV Diastolic Length 2C 7.3 cm LV Systolic Length 2C 5.5 cm LA Volume 29.4 cm??? 18 - 58 / 22 - 52 cm??? M-MODE Aortic Root Diameter MM 2.8 cm LA Systolic Diameter MM 3.9 cm LA Ao Ratio MM 1.4 AV Cusp Separation MM 1.9 cm DOPPLER AV Peak Velocity 175.9 cm/s AV Peak Gradient 12.4 mmHg AV Mean Velocity 111.4 cm/s AV Mean Gradient 5.8 mmHg AV Velocity Time Integral 26.3 cm LVOT Peak Velocity 130.3 cm/s LVOT Peak Gradient 6.8 mmHg MV Area PHT 9.5 cm??? Mitral E Point Velocity 71.0 cm/s Mitral A Point Velocity 106.4 cm/s Mitral E to A Ratio 0.7 MV Deceleration Time 79.7 ms MV E' Velocity 6.5 cm/s Mitral E to MV E' Ratio 10.9 TR Peak Velocity 256.6 cm/s TR Peak Gradient 26.3 mmHg Right Ventricular Systolic Press 29.9 mmHg FINDINGS Left Ventricle Low-normal left ventricle systolic function was EF around 50% Right Ventricle Normal right ventricular size and function. Right ventricular systolic pressure within normal limits. Right Atrium Normal right atrial size. Left Atrium Normal left atrial size. Mitral Valve Structurally normal mitral valve. Mild mitral regurgitation. Aortic Valve Trileaflet aortic valve. No aortic valve stenosis or regurgitation. Tricuspid Valve Mild tricuspid regurgitation. Pulmonic Valve Trace to mild pulmonic regurgitation. Pericardium No pericardial effusion. Aorta Normal size aortic root and proximal ascending aorta. CONCLUSIONS Low-normal left ventricular systolic function was EF of around 50% Previewed by: Dr. Octaviano Rosas MD (Electronically Signed) Final Date: 09 September 2022 14:05
--- NOTE | 2022-09-09 14:42 | P.PN ---
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 On arrival to the ER vital signs showed tachycardia with a pulse of 126 initially her blood pressure was normal but quickly dropped to 73/48. Initial laboratory analysis showed white blood cell count 36.5, hemoglobin 6.6, platelets 133, INR 1.3, d-dimer 3.55, troponin 0.253, alkaline phosphatase 278, serum albumin 1.9, calcium 6.7. VBG showed a pH of 7.27 with a pCO2 of 64. Influenza A/B/RSV/COVID-[address] head showed large soft tissue mass in the right middle cranial fossa with extension into the right mandibular space was surrounding osseous structure. CTA of the chest showed severe airspace disease within the right upper lobe with the remainder of the lungs showing extensive disease and tree and bud appearance, possible early cavitary changes in the right aspect packs and right upper lobe. Correlate for atypical mycobacterial or fungal infection or extensive pneumonia. Scattered endobronchial opacifications/mucoid debris in the lower lobes. The ER she was given 2 L of normal saline but remained hypotensive and required levo. She was started on Vanco and Zosyn. One unit of packed red blood cells was ordered. Arrangements are made for admission to the ICU. She continued to do better and became awake. Oncology was consulted. They did recommend infectious disease consultation. She was also followed by pulmonary. Patient was seen and examined. No acute events overnight. Patient expressing her dislike of BiPAP. Overnight, she was tachycardic with heart rate in the 160s presumed SVT. She was started on a Cardizem drip. Chest x-ray this morning shows small left apical pneumothorax 1.8 cm area BiPAP settings have been reduced from 12/60 8/6 FiO2 of 100%. Case was discussed with her . Gen.: Ill appearing, no distress, appears older than stated age. Derm: warm, dry Head: atraumatic, normocephalic, symmetric Eyes: EOMI, no lid lag, anicteric sclera Mouth: no lip lesion, mucus membranes moist, unable to speak effectively on BiPAP Cardiovascular: S1S2 reg, no murmur, positive DP pulse bilateral Lungs: Coarse breath sounds bilateral, no rhonchi, no rales , no accessory muscle use Abdominal: soft, nontender to palpation, no guarding, no appreciable organomegaly Ext: no gross muscle atrophy, no edema, no contractures Neuro: no focal neuro deficits Psych: Alert, oriented, appropriate affect #Pneumonia, possible gram-negative or MRSA related with recent chemo #Septic shock #Acute hypoxic respiratory failure #Acute metabolic encephalopathy, resolved #Pneumothorax CXR this morning shows small left apical PTX 1.8cm, worsening bilateral airspace disease R>L Concerns for possible aspiration event with recent vomiting Continue Vanco D2, Zosyn D3 Will start Eraxis to cover for PCP D1 Sputum culture pending Respiratory support - BiPAP 8/6 FiO2 of 100% Sepsis resolving BP 152/82, off Levophed since 09/07 Infectious disease recommendations appreciated Critical care and pulmonary recommendations appreciated Oncology on board #Hypertension BP 152/82 Cardizem drip discontinued and started on metoprolol by cardiology. 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 Oncology recommendations appreciated #Elevated troponin, Type II NSTEMI due to hypotension Troponin 0.253, 0.221, 0.244 Echocardiogram ordered Objective - Vital Signs Vital signs: Vital Signs Temp 98.9 F 09/09/22 08:00 Pulse 114 H 09/09/22 09:00 Resp 22 09/09/22 09:00 BP 114/70 09/09/22 09:00 Pulse Ox 97 09/09/22 09:00 FiO2 100 09/09/22 08:00 Intake & Output 09/08/22 09/09/22 09/09/22 18:59 06:59 18:59 Intake Total 570 1285 190 Output Total 825 1300 Balance -255 -15 190 Weight 50.1 kg Intake: IV 300 865 160 KVO 150 240 60 Piperacillin-Tazobactam 3 150 125 100 .375 gm In Sodium Chloride 0.9% 100 ml @ 25 mls/hr IVPB Q8HR LONG Rx# :[id number] Vancomycin 750 mg In 500 Sodium Chloride 0.9% 250 ml @ 125 mls/hr IVPB Q12H LONG Rx#:[id number] Tube Feeding 210 330 30 Other 60 90 Output: Urine 825 1300 Other: Voiding Method Bedside Commode Bedside Commode # Voids 0 # Bowel Movements 1 1 - Labs CBC & Chem 7: 09/09/22 06:32 09/09/22 06:32 Labs: Abnormal Lab Results - Last 24 Hours (Table) 09/08/22 09/08/22 09/08/22 Range/Units 04:16 04:16 04:16 WBC (3.8-10.6) k/uL RBC (3.80-5.40) m/uL Hgb (11.4-16.0) gm/dL Hct (34.0-46.0) % MCV (80.0-100.0) fL RDW (11.5-15.5) % Plt Count (150-450) k/uL Macrocytosis Haptoglobin 294.0 H (31.2-198.0) mg/dL Sodium (137-145) mmol/L Chloride (98-107) mmol/L Carbon Dioxide (22-30) mmol/L Creatinine (0.52-1.04) mg/dL Glucose (74-99) mg/dL Calcium (8.4-10.2) mg/dL Iron 33 L (50-170) ug/dL TIBC 144 L (228-460) ug/dL Transferrin 103.0 L (204.0-354.0) mg/dL Ferritin 2477.0 H (10.0-291.0) ng/mL Lactate Dehydrogenase 738 H (313-618) U/L Vitamin B12 >3600.0 H (200.0-944.0) pg/mL Folate 2.90 L (4.40-31.00) ng/mL 09/09/22 09/09/22 Range/Units 06:32 06:32 WBC 42.5 H (3.8-10.6) k/uL RBC 2.65 L (3.80-5.40) m/uL Hgb 8.9 L (11.4-16.0) gm/dL Hct 28.0 L (34.0-46.0) % MCV 105.7 H (80.0-100.0) fL RDW 23.0 H (11.5-15.5) % Plt Count 106 L (150-450) k/uL Macrocytosis Marked A Haptoglobin (31.2-198.0) mg/dL Sodium 146 H (137-145) mmol/L Chloride 109 H (98-107) mmol/L Carbon Dioxide 33 H (22-30) mmol/L Creatinine 0.31 L (0.52-1.04) mg/dL Glucose 122 H (74-99) mg/dL Calcium 7.7 L (8.4-10.2) mg/dL Iron (50-170) ug/dL TIBC (228-460) ug/dL Transferrin (204.0-354.0) mg/dL Ferritin (10.0-291.0) ng/mL Lactate Dehydrogenase (313-618) U/L Vitamin B12 (200.0-944.0) pg/mL Folate (4.40-31.00) ng/mL Microbiology - Last 24 Hours (Table) 09/06/22 15:40 Blood Culture - Preliminary Blood No Growth after 48 hours 09/06/22 15:40 Blood Culture - Preliminary Blood No Growth after 48 hours 09/07/22 11:05 Gram Stain - Preliminary Sputum Sputum Culture - Preliminary
[2022-09-09] MEDS: NOREPINEPHRINE 4 MG in SODIUM CHLORIDE 0.9% 250 ML IV SCH (15:15)
[2022-09-09] MEDS ORDERED: ANIDULAFUNGIN 200 MG in SODIUM CHLORIDE 0.9% 200 ML IVPB ONE (16:00)
[2022-09-09] MEDS ORDERED: POTASSIUM BICARBONATE/CIT AC 20 MEQ TABLET.EFF NG-TUBE SCH (20:00)
--- NOTE | 2022-09-09 21:25 | P.CONS ---
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 presenting to the hospital 3 days ago on 09/06/2022 for evaluation of weakness and mental status changes patient was noticed to be tachycardic and hypotensive requiring fluid and pressor support and the patient was admitted to the ICU the patient did have a CT angiogram of the chest which did show severe airspace disease in the right upper lobe with extensive tree-in-bud appearances possible early cavitary changes patient on presentation to the hospital was afebrile he did have a low-grade fever of 99.7 last evening afebrile since then patient is currently satting 92% on 100% BiPAP patient did have a white count of 42,000 some improvement but is up to 42.5 today with a left shift kidney function has been normal AST is mildly elevated ALT is normal influenza RSV and COVID was not negative patient did have blood cultures drawn which are currently pending sputum cultures pending patient is treated with combination of vancomycin and Zosyn Eraxis infectious disease was consulted today after the patient has been the hospital for more than 72 hours for sepsis and further management of pneumonia and concern for possible fungal pneumonia most information has been obtained from review the chart told nursing staff and the patient herself evaluated good historian and is currently on a BiPAP and very hard of hearing Review of Systems Positive points has been mentioned in HPI complete review could not be obtained because of his underlying mental status 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 with mets to the eye, bellspalsy R History of Any Multi-Drug Resistant Organisms: None Reported Past Surgical History: Unable to Obtain Additional Past Surgical History / Comment(s): peg tube, mediprot Past Anesthesia/Blood Transfusion Reactions: No Reported Reaction Past Psychological History: No Psychological Hx Reported Smoking Status: Former smoker Past Alcohol Use History: None Reported Past Drug Use History: Unable to Obtain - Past Family History family Additional Family Medical History / Comment(s): no hx of head and neck cancer at home Medications and Allergies Home Medications Medication Instructions Recorded Confirmed Type Acetaminophen Oral Susp [Tylenol] 480 mg PEG/G-TUBE Q4H 09/06/22 09/06/22 History Famotidine [Pepcid] 20 mg PEG/G-TUBE DAILY PRN 09/06/22 09/06/22 History Gabapentin [Gabapentin Oral Soln] 250 mg PEG/G-TUBE TID 09/06/22 09/06/22 History Loperamide HCl [Loperamide HCl 1.33 mg PEG/G-TUBE Q6H PRN 09/06/22 09/06/22 History Oral Susp] Methadone HCl [Methadone Intensol] 10 mg PEG/G-TUBE Q8H 09/06/22 09/06/22 History Metoclopramide [Reglan] 10 mg PEG/G-TUBE Q6H PRN 09/06/22 09/06/22 History OLANZapine ODT [ZyPREXA ZYDIS] 10 mg PEG/G-TUBE DIRECTED 09/06/22 09/06/22 History Oxycodone 5mg/5ml 15 mg PEG/G-TUBE Q4H 09/06/22 09/06/22 History Allergies Allergy/AdvReac Type Severity Reaction Status Date / Time No Known Allergies Allergy Verified 09/06/22 11:14 Physical Exam Vitals: Vital Signs Temp Pulse Resp BP Pulse Ox FiO2 09/09/22 11:07 106 H 09/09/22 11:00 103 H 24 116/75 99 09/09/22 10:56 106 H 09/09/22 10:41 100 09/09/22 10:00 108 H 21 109/60 94 L 09/09/22 09:00 114 H 22 114/70 97 09/09/22 08:11 125 H 09/09/22 08:01 125 H 09/09/22 08:00 98.9 F 125 H 23 152/82 97 100 09/09/22 07:39 100 09/09/22 07:37 100 09/09/22 07:00 161 H 30 H 132/95 78 L 09/09/22 06:00 112 H 17 111/96 89 L 09/09/22 05:00 113 H 16 133/69 87 L 09/09/22 04:11 91 L 09/09/22 04:00 99.0 F 115 H 20 124/72 93 L 09/09/22 03:00 108 H 16 116/63 91 L 09/09/22 02:00 105 H 15 128/80 92 L 09/09/22 01:00 118 H 21 139/86 84 L 09/09/22 00:58 79 L 09/09/22 00:00 98.8 F 126 H 36 H 116/61 88 L 09/08/22 23:02 101 H 12 96 09/08/22 23:00 96 13 108/61 96 09/08/22 22:00 97 12 106/61 96 09/08/22 21:00 101 H 12 113/60 94 L 09/08/22 20:00 99.8 F H 98 12 118/62 96 09/08/22 19:28 101 H 09/08/22 19:16 105 H 09/08/22 19:00 104 H 18 102/59 96 09/08/22 18:00 98 14 125/70 92 L 09/08/22 17:00 99.7 F H 114 H 21 120/66 90 L 09/08/22 16:06 123 H 09/08/22 16:00 108 H 18 136/70 94 L 09/08/22 15:51 121 H 94 L 09/08/22 15:00 96.4 F L 96 25 H 113/64 89 L 09/08/22 14:00 89 14 113/66 93 L 09/08/22 13:30 91 15 113/66 89 L 09/08/22 13:00 97 12 126/70 92 L Intake and Output 09/08/22 09/09/22 09/09/22 22:59 06:59 14:59 Intake Total 615 810 242.667 Output Total 825 1300 Balance -210 -490 242.667 Intake: IV 465 510 200 KVO 140 160 100 Piperacillin-Tazobactam 3 75 100 100 .375 gm In Sodium Chloride 0.9% 100 ml @ 25 mls/hr IVPB Q8HR LONG Rx# :[id number] Vancomycin 750 mg In 250 250 Sodium Chloride 0.9% 250 ml @ 125 mls/hr IVPB Q12H LONG Rx#:[id number] Intake, IV Titration 12.667 Amount Diltiazem 125 mg In 12.667 Sodium Chloride 0.9% 100 ml @ 5 MG/HR 5 mls/hr IV .Q24H LONG Rx#:[id number] Tube Feeding 120 240 30 Other 30 60 Output: Urine 825 1300 Other: Voiding Method Bedside Commode Bedside Commode Bedside Commode # Bowel Movements 1 Weight 50.1 kg GENERAL DESCRIPTION: Middle-aged female lying in bed, in mild distress on BiPAP. HEENT: Shows Pallor , no scleral icterus. NECK: Trachea central, no thyromegaly. LUNGS: Unlabored breathing. Coarse breath sounds bilaterally HEART: S1, S2, regular rate and rhythm. No loud murmur ABDOMEN: Soft, no tenderness , guarding or rigidity, no organomegaly EXTREMITIES: No edema of feet. SKIN: No rash, no masses palpable. NEUROLOGICAL: The patient is lethargic and did not answer any question orie ntation could not be determined. Results CBC & Chem 7: 09/10/22 04:57 09/10/22 04:57 Labs: Abnormal Lab Results - Last 24 Hours (Table) 09/08/22 09/08/22 09/08/22 Range/Units 04:16 04:16 04:16 WBC (3.8-10.6) k/uL RBC (3.80-5.40) m/uL Hgb (11.4-16.0) gm/dL Hct (34.0-46.0) % MCV (80.0-100.0) fL RDW (11.5-15.5) % Plt Count (150-450) k/uL Macrocytosis Haptoglobin 294.0 H (31.2-198.0) mg/dL Sodium (137-145) mmol/L Chloride (98-107) mmol/L Carbon Dioxide (22-30) mmol/L Creatinine (0.52-1.04) mg/dL Glucose (74-99) mg/dL Calcium (8.4-10.2) mg/dL Iron 33 L (50-170) ug/dL TIBC 144 L (228-460) ug/dL Transferrin 103.0 L (204.0-354.0) mg/dL Ferritin 2477.0 H (10.0-291.0) ng/mL Vitamin B12 >3600.0 H (200.0-944.0) pg/mL Folate 2.90 L (4.40-31.00) ng/mL 09/09/22 09/09/22 Range/Units 06:32 06:32 WBC 42.5 H (3.8-10.6) k/uL RBC 2.65 L (3.80-5.40) m/uL Hgb 8.9 L (11.4-16.0) gm/dL Hct 28.0 L (34.0-46.0) % MCV 105.7 H (80.0-100.0) fL RDW 23.0 H (11.5-15.5) % Plt Count 106 L (150-450) k/uL Macrocytosis Marked A Haptoglobin (31.2-198.0) mg/dL Sodium 146 H (137-145) mmol/L Chloride 109 H (98-107) mmol/L Carbon Dioxide 33 H (22-30) mmol/L Creatinine 0.31 L (0.52-1.04) mg/dL Glucose 122 H (74-99) mg/dL Calcium 7.7 L (8.4-10.2) mg/dL Iron (50-170) ug/dL TIBC (228-460) ug/dL Transferrin (204.0-354.0) mg/dL Ferritin (10.0-291.0) ng/mL Vitamin B12 (200.0-944.0) pg/mL Folate (4.40-31.00) ng/mL Microbiology - Last 24 Hours (Table) 09/06/22 15:40 Blood Culture - Preliminary Blood No Growth after 48 hours 09/06/22 15:40 Blood Culture - Preliminary Blood No Growth after 48 hours 09/07/22 11:05 Gram Stain - Preliminary Sputum Sputum Culture - Preliminary Assessment and Plan (1) Pneumonitis Current Visit: Yes Status: Acute Code(s): J18.9 - PNEUMONIA, UNSPECIFIED ORGANISM SNOMED Code(s): 235849558 Plan: 1patient presented to hospital with weakness mental status changes with component of sepsis as the patient did have elevated white count hypotension requiring pressor support with extensive pneumonia concern for possible aspiration/bacterial pneumonia such as MRSA or pseudomonas, less likely to be fungal pneumonia but not entirely excluded. 2sputum culture has been obtained and those will be followed closely blood culture negative so far 3patient to continue vancomycin and Zosyn while bridging her kidney function closely so far creatinine is holding We will follow on clinical condition and cultures to further adjust medication if needed Thank you for this consultation we will follow the patient along with you Time with Patient: Greater than 30
[2022-09-09] MEDS: IPRATROPIUM-ALBUTEROL 3 ML NEB INHALATION PRN (23:55)
[2022-09-10] MEDS: OXYCODONE PEG/G-TUBE SCH ×5 (00:13→16:13)
[2022-09-10] MEDS: METHADONE 10 MG/ML PO SCH ×3 (00:17→16:13)
[2022-09-10] MEDS: PIPERACILLIN-TAZOBACTAM 3.375 GM in SODIUM CHLORIDE 0.9% 100 ML IVPB SCH ×2 (00:17→08:29)
[2022-09-10] MEDS: IPRATROPIUM-ALBUTEROL 3 ML NEB INHALATION PRN (03:52)
[2022-09-10] MEDS ORDERED: VANCOMYCIN TROUGH DUE 1 EACH MISC MISCELLANE ONE (04:00)
[2022-09-10 05:17] LABS: Anisocytosis Moderate; HCT 26.9 % (34.0-46.0); HGB 8.4 gm/dL (11.4-16.0); Hypochromasia Marked; MCH 34.1 pg (25.0-35.0); MCHC 31.3 g/dL (31.0-37.0); MCV 109.1 fL (80.0-100.0); Macrocytosis Marked; Mean Platelet Volume 10.1; Poikilocytosis Slight; RBC 2.46 m/uL (3.80-5.40); RDW 22.5 % (11.5-15.5); WBC 44.7 k/uL (3.8-10.6)
[2022-09-10 05:31] LABS: African American GFR (CKD) >90 (>60 ml/min/1.73 sqM); Anion Gap 1 mmol/L; Blood Urea Nitrogen 10 mg/dL (7-17); Calcium 7.8 mg/dL (8.4-10.2); Carbon Dioxide 38 mmol/L (22-30); Chloride 109 mmol/L (98-107); Glucose 142 mg/dL (74-99); Magnesium 1.9 mg/dL (1.6-2.3); Non-African American GFR(CKD) >90 (>60 ml/min/1.73 sqM); Potassium 3.8 mmol/L (3.5-5.1); Sodium 148 mmol/L (137-145)
[2022-09-10 06:02] LABS: Platelet Count 88 k/uL (150-450)
--- NOTE | 2022-09-10 06:04 | XR ---
EXAMINATION TYPE: XR chest 1V portable DATE OF EXAM: 09/10/2022 CLINICAL HISTORY: Difficulty breathing progress study. TECHNIQUE: Single AP portable semiupright view of the chest is obtained. COMPARISON: Chest x-ray from one day earlier and older studies. FINDINGS: Stable right internal jugular Mediport catheter. Continued worsening right lung multifocal increased opacities. Also more prominent increased left mervin g reticulonodular increased opacity. Suspected small left apical pneumothorax on prior is not clearly seen on current study. Stable mild cardiomegaly. Osseous structures are intact. IMPRESSION: Persistent continued interval worsening bilateral multifocal edema and/or infiltrates. Co nsider atypical infection such as COVID-19. Consider developing ARDS.
[2022-09-10] MEDS: VANCOMYCIN 750 MG in SODIUM CHLORIDE 0.9% 250 ML IVPB SCH ×2 (06:33→12:15)
[2022-09-10] MEDS: DILTIAZEM 125 MG in SODIUM CHLORIDE 0.9% 100 ML IV SCH (07:13)
[2022-09-10] MEDS: IPRATROPIUM-ALBUTEROL 3 ML NEB INHALATION SCH ×3 (07:21→15:37)
[2022-09-10] MEDS: FOLIC ACID 1 MG TAB PO SCH (08:29)
[2022-09-10] MEDS: PANTOPRAZOLE 40 MG/10 ML VIAL IV SCH (08:29)
[2022-09-10] MEDS: ENOXAPARIN 40 MG/0.4 ML SYRINGE SQ SCH (08:29)
[2022-09-10] MEDS: METOPROLOL SUCCINATE (ER) 25 MG TAB.ER.24H PO SCH (08:29)
[2022-09-10] MEDS: POTASSIUM CHLORIDE 10 MEQ in WATER FOR INJECTION 1 100ML.BAG IVPB SCH ×2 (08:30→10:21)
[2022-09-10] MEDS: GABAPENTIN 250 MG/5 ML PEG/G-TUBE SCH ×2 (08:53→16:13)
--- NOTE | 2022-09-10 09:18 | P.PN ---
Subjective Progress Note Date: 09/10/22 The patient is a 62-year-old female who is currently admitted to the hospital with respiratory distress. Cardiology was consulted for arrhythmia. EKG strips reviewed, which showed sinus tachycardia. Recent echocardiogram reveals low normal LV function of 50%. Chest x-ray this morning shows worsening in filtrates. Consideration for ARDS. The patient was interviewed and examined lying comfortably in bed. She is currently on BiPAP, with labored breathing. She arouses to physical touch. GENERAL: Ill-appearing, undernourished female. NECK: Supple without JVD or thyromegaly. LUNGS: Breath sounds rhonchorous to auscultation bilaterally. Respiration equal. Labored breathing. HEART: Regular rate and rhythm without murmurs, rubs or gallops. S1 and S2 heard. EXTREMITIES: Normal range of motion, no edema. No clubbing or cyanosis. Peripheral pulses intact and strong. VITALS: Blood pressure 115/65, heart rate 116, temp 100.2F, SpO2 94% on BiPAP at 100% FiO2 TELEMETRY: Sinus tachycardia LABS: WBC 44.7, hemoglobin 8.4, hematocrit 26.9, platelet 88, sodium 148, potassium 3.8, BUN 10, creatinine 0.34, magnesium 1.9 IMPRESSION: Acute hypoxic respiratory failure Pneumonia Sinus tachycardia History of oral cancer with metastasis PLAN: Continue supportive treatment No further recommendations from the cardiac standpoint Further recommendations to be based upon clinical course I am dictating on behalf of Dr Saulo Saunders's history/physical and assessment/plan. Objective - Vital Signs Vital signs: Vital Signs Temp 100.2 F H 09/10/22 08:00 Pulse 116 H 09/10/22 09:00 Resp 21 09/10/22 09:00 BP 115/65 09/10/22 09:00 Pulse Ox 94 L 09/10/22 09:00 FiO2 100 09/10/22 09:00 Intake & Output 09/09/22 09/10/22 09/10/22 18:59 06:59 18:59 Intake Total 605.859 5097 630 Output Total 600 1205 170 Balance 82.667 -195 460 Weight 48.3 kg Intake: IV 640 590 510 0.9 Normal Saline @ KVO 240 240 60 Anidulafungin 100 mg In 200 Sodium Chloride 0.9% 100 ml @ 84 mls/hr IVPB Q24H LONG Rx#:[id number] Piperacillin-Tazobactam 3 200 100 100 .375 gm In Sodium Chloride 0.9% 100 ml @ 25 mls/hr IVPB Q8HR LONG Rx# :[id number] Potassium Chloride 10 meq 100 In Water For Injection 1 100ml.bag @ 100 mls/hr IVPB Q1H LONG Rx#: [id number] Vancomycin 750 mg In 250 250 Sodium Chloride 0.9% 250 ml @ 125 mls/hr IVPB Q12H LONG Rx#:[id number] Intake, IV Titration 12.667 Amount Diltiazem 125 mg In 12.667 Sodium Chloride 0.9% 100 ml @ 5 MG/HR 5 mls/hr IV .Q24H [facility] Rx#:[id number] Tube Feeding 30 330 90 Other 90 30 Output: Urine 600 1205 170 Other: Voiding Method Bedside Commode Bedpan # Voids 1 # Bowel Movements 1 - Labs CBC & Chem 7: 09/10/22 04:57 09/10/22 04:57 Labs: Abnormal Lab Results - Last 24 Hours (Table) 09/10/22 09/10/22 Range/Units 04:57 04:57 WBC 44.7 H (3.8-10.6) k/uL RBC 2.46 L (3.80-5.40) m/uL Hgb 8.4 L (11.4-16.0) gm/dL Hct 26.9 L (34.0-46.0) % MCV 109.1 H (80.0-100.0) fL RDW 22.5 H (11.5-15.5) % Plt Count 88 L (150-450) k/uL Macrocytosis Marked A Sodium 148 H (137-145) mmol/L Chloride 109 H (98-107) mmol/L Carbon Dioxide 38 H (22-30) mmol/L Creatinine 0.34 L (0.52-1.04) mg/dL Glucose 142 H (74-99) mg/dL Calcium 7.8 L (8.4-10.2) mg/dL Microbiology - Last 24 Hours (Table) 09/06/22 15:40 Blood Culture - Preliminary Blood No Growth after 72 hours 09/06/22 15:40 Blood Culture - Preliminary Blood No Growth after 72 hours
[2022-09-10] MEDS ORDERED: AZITHROMYCIN 250 MG in SODIUM CHLORIDE 0.9% 125 ML IVPB SCH (10:15)
[2022-09-10] MEDS ORDERED: DEXTROSE 5% IN WATER 1,000 ML IV SCH (10:30)
[2022-09-10 10:45] VITALS: BMI 18.2
[2022-09-10] MEDS: AMPICILLIN-SULBACTAM 3 GM in SODIUM CHLORIDE 0.9% 100 ML IVPB SCH ×2 (12:14→17:33)
--- NOTE | 2022-09-10 13:35 | P.PN ---
Subjective Progress Note Date: 09/10/22 Principal diagnosis: Pneumonia. Pulmonary/critical care consultation dated 09/06/2022. 62-year-old female seen by Dr. Diego in the emergency room, for loss of consciousness. She was seen initially at 10:48 AM, today. The patient apparently was found to be unresponsive, and EMS was called, she was apparently cyanotic and unresponsive. Oxygen was provided and the patient apparently improved. 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 The patient was very difficult to understand according to the ER physician. Most of the history apparently was obtained from the family member. The patient was discovered to have hypotension, was given 2 L of fluid, and started on norepinephrine. The patient is currently seeing an ER, trauma 2. The patient is on a nonrebreather mask, and getting norepinephrine at 0.061 mcg/kg/m. She was given Zosyn and vancomycin. Home medications included Tylenol, methadone, loperamide, oxycodone, gabapentin, Reglan, Zyprexa, and Pepcid. She has no known ALLERGIES. Laboratory data includes a white count of 36.5, hemoglobin 6.6, hematocrit 21.4, and a platelet count of 133,000. PT 13.3, INR 1.3, and d-dimer was 3.55. Venous blood gas showed a CO2 of 64, and a pH is 7.27. Sodium 136, potassium 3.6, chlorides 100, CO2 30, BUN 19, creatinine 0.61. Troponin was 0.253. Albumin 1.9. Testing for influenza, respiratory syncytial virus, and coronavirus, were all negative. Brain CT showed a large soft tissue mass within the right middle cranial fossa with inferior extension into the right mandible space with surrounding osseous destruction. Chest x-ray shows diffuse abnormalities throughout both lungs, more right-sided than left-sided, and more extensive consolidation particularly in the right upper lobe. CT angiogram was negative for pulmonary embolism, but did show bilateral airspace disease, with the greatest degree of consolidation, in the right upper lobe. Progress note dated 09/07/2022. The patient is seen today in room 262. She was seen in consultation yesterday, in the emergency department. She's currently on 6 L of oxygen. She's getting saline at 20 mL an hour, and norepinephrine at 4 mcg/m. She is also on Zosyn and vancomycin diffuse bilateral pneumonia. Clinically, she's about the same. She had an uneventful night according to the nurse. White count 45.5, hemoglobin 9.4, hematocrit 28.8, platelet count 238,000. Opium 140, potassium 3.2, chlorides 104, CO2 29, BUN 19, and creatinine 0.34. The rest of the labs look unremarkable save for an albumin of 2.1. Chest x-ray shows diffuse bilateral airspace disease. Chest x-ray is essentially unchanged, with most of the abnormality occurring in the right upper lobe. Progress note dated 09/08/2022. The patient is again seen today in room 262. She's on 10 L high flow oxygen. She's getting saline IV at KVO. She's getting tube feeds at 30 mL an hour, which is her goal. She is currently on Zosyn and vancomycin for her pneumonia. White count is 37.8, hemoglobin 8.8, hematocrit 26.2, and platelet count 121,000. Sodium 142, potassium 3.6, chlorides 109, CO2 32, BUN 13, creatinine 0.27. Chest x-ray show some improvement compared to initial x-rays. Progress note dated 09/09/2022. The patient is again seen today in room 262. The patient developed worsening respiratory status and tachycardia overnight. The patient is currently on BiPAP, with settings of 12/6 and 100%. The patient's getting saline at keep vein open. She was started initially on Cardizem drip, for presumed SVT. In fact, the patient had sinus tachycardia. The patient's getting TwoCal HN, at 30 mL an hour, which is goal. The BiPAP was changed from an IPAP of 12, down to an IPAP of 8. The patient continues on Zosyn and vancomycin for bilateral pneumonia. Also, the patient's chest x-ray today showed a small left apical pneumothorax. The patient is now a DO NOT RESUSCITATE. White count is 42.5, hemoglobin 8.9, hematocrit 28, platelet count 106,000. Sodium is 146, potassium 3.5, chlorides 109, CO2 33, BUN 9, and creatinine 0.31. Progress note dated 09/10/2022. 62-year-old female seen again in room 262. She's currently on BiPAP, with settings of 8/6 and 100%. The patient is a DO NOT RESUSCITATE patient. Her saline IV will be discontinued. She's getting tube feedings at goal. Because of hypernatremia, we'll start her on D5W at 75 mL an hour. She is on a number of antibiotics including vancomycin, Zosyn, azithromycin, and Eraxis. White count 0.45 thousand, hemoglobin 8.4, hematocrit 26.9, platelet count 88,000. Sodium 148, potassium 3.8, chlorides 109, CO2 38, BUN 10, creatinine 0.34. The sputum from September 07 showing evidence of methicillin-resistant staph aureus. Chest x-ray shows persistent continued interval worsening of her bilateral multifocal infiltrates. Objective - Vital Signs Vital signs: Vital Signs Temp 98.5 F 09/10/22 12:00 Pulse 111 H 09/10/22 13:00 Resp 14 09/10/22 13:00 BP 97/58 09/10/22 13:00 Pulse Ox 93 L 09/10/22 13:00 FiO2 100 09/10/22 13:00 Intake & Output 09/09/22 09/10/22 09/10/22 18:59 06:59 18:59 Intake Total 385.996 6926 1475 Output Total 600 1205 346 Balance 82.667 -195 1129 Weight 48.3 kg 48.3 kg Intake: IV 032 267 5910 0.9 Normal Saline @ KVO 240 240 80 Ampicillin-Sulbactam 3 gm 100 In Sodium Chloride 0.9% 100 ml @ 200 mls/hr IVPB Q6HR LONG Rx#:[id number] Anidulafungin 100 mg In 200 Sodium Chloride 0.9% 100 ml @ 84 mls/hr IVPB Q24H LONG Rx#:[id number] Dextrose 5% in Water 1, 225 000 ml @ 75 mls/hr IV . [id number] LONG Rx#:[id number] Piperacillin-Tazobactam 3 200 100 100 .375 gm In Sodium Chloride 0.9% 100 ml @ 25 mls/hr IVPB Q8HR LONG Rx# :[id number] Potassium Chloride 10 meq 200 In Water For Injection 1 100ml.bag @ 100 mls/hr IVPB Q1H LONG Rx#: [id number] Vancomycin 750 mg In 250 250 Sodium Chloride 0.9% 250 ml @ 125 mls/hr IVPB Q12H [facility] Rx#:[id number] Vancomycin 750 mg In 250 Sodium Chloride 0.9% 250 ml @ 125 mls/hr IVPB Q8H [facility] Rx#:[id number] Intake, IV Titration 12.667 Amount Diltiazem 125 mg In 12.667 Sodium Chloride 0.9% 100 ml @ 5 MG/HR 5 mls/hr IV .Q24H [facility] Rx#:[id number] Tube Feeding 30 330 210 Other 90 60 Output: Urine 600 1205 346 Other: Voiding Method Bedside Commode Bedpan # Voids 1 # Bowel Movements 1 - Exam No acute distress, poorly responsive, currently on BiPAP. HEENT examination reveals a right facial droop. Neck supple. Full range of motion. No adenopathy thyromegaly or neck vein distention. Cardiovascular examination reveals regular rhythm rate. S1-S2 normal. No S3 or S4. No discernible murmur noted. Heart sounds are distant. Heart rate 111 bpm. The patient has a port in the right chest area. Lungs reveal scattered diffuse rhonchi. The patient does not take deep breaths. No wheezes. No crackles. Saturations are 93 % on BiPAP treatment. Abdomen soft, without bowel sounds. Extremities are intact. No cyanosis or clubbing. 1+ edema is noted in the lower extremities. Skin is without rash or lesion. Neurologic examination is unchanged. - Labs CBC & Chem 7: 09/10/22 04:57 09/10/22 04:57 Labs: Abnormal Lab Results - Last 24 Hours (Table) 09/10/22 09/10/22 Range/Units 04:57 04:57 WBC 44.7 H (3.8-10.6) k/uL RBC 2.46 L (3.80-5.40) m/uL Hgb 8.4 L (11.4-16.0) gm/dL Hct 26.9 L (34.0-46.0) % MCV 109.1 H (80.0-100.0) fL RDW 22.5 H (11.5-15.5) % Plt Count 88 L (150-450) k/uL Macrocytosis Marked A Sodium 148 H (137-145) mmol/L Chloride 109 H (98-107) mmol/L Carbon Dioxide 38 H (22-30) mmol/L Creatinine 0.34 L (0.52-1.04) mg/dL Glucose 142 H (74-99) mg/dL Calcium 7.8 L (8.4-10.2) mg/dL Microbiology - Last 24 Hours (Table) 09/07/22 11:05 Gram Stain - Final Sputum Sputum Culture - Final Methicillin resist S. aureus 09/06/22 15:40 Blood Culture - Preliminary Blood No Growth after 72 hours 09/06/22 15:40 Blood Culture - Preliminary Blood No Growth after 72 hours Assessment and Plan Assessment: Acute mental status changes, with cyanosis, likely related to sepsis, and extensive bilateral pneumonia. 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 Acute hypotension, secondary to sepsis. Anemia. Thrombocytopenia. Respiratory acidosis. Severe hypoalbuminemia. Plan: Plan dated 09/06/2022. The patient is seen in the emergency department. The patient's currently on norepinephrine. She was given both Zosyn and vancomycin for pneumonia. She is on a nonrebreather mask. The patient was initially found to be unresponsive, with cyanosis. Currently, according to the hospital service, she is a full code. Labs, x-rays, and medications are reviewed. Some consideration should be given to transferring the patient to her facility of record. We will continue to follow make recommendations along the way. Plan dated 09/07/2022. The patient is seen today in room 262. The patient is currently on 6 L nasal cannula. She's receiving Zosyn and vancomycin for infection. She remains on norepinephrine at 4 mcg/m. We will continue to follow make recommendations along the way. Overall prognosis is very guarded. The patient is currently a full code. Plan dated 09/08/2022. The patient is again seen today in room 262. She was on 6 L of oxygen yesterday, and is now up to 10 L/m. She continues on Zosyn and vancomycin. Culture data is as far negative. The patient has been weaned off norepinephrine. Chest x-ray show some mild improvement. Mental status is still poor. We'll continue to follow and make recommendations along the way. Labs, x-rays, and medications are all reviewed. Plan dated 09/09/2022. The patient developed tachycardia, and respiratory distress overnight. The patient was placed on BiPAP, and her saturations are much improved, and she looks much more comfortable. In addition, the IPAP was reviewed and 12, down to 8. Also, the patient developed tachycardia. The nurse that called me thought it was SVT/atrial fibrillation, and therefore we started the patient on Cardizem drip. It appears that in fact the patient had only sinus tachycardia. Cardizem has been discontinued. Labs, x-rays, and medications are reviewed. Prognosis is guarded. We will continue to follow along and make recommendations. Plan dated 09/10/2022. The patient's overall condition is worsening. We will change the saline over to D5W because of the hypernatremia. Her sputum showed evidence of methicillin- resistant staph aureus. She's currently on an antifungal, Zosyn, and vancomycin. Azithromycin will be discontinued. The patient's on BiPAP at 8/6 and 100%. We will continue to follow her, and make recommendations along the way. Labs, x-rays, and medications are reviewed. Overall prognosis remains very poor. The patient is a DO NOT RESUSCITATE patient. Time with Patient: Greater than 30
--- NOTE | 2022-09-10 15:05 | P.PN ---
Subjective Progress Note Date: 09/10/22 Principal diagnosis: Unresponsive, on treatment for sq cell carcinoma of the tongue Patient is on BiPAP, family is reporting she is not as interactive as yesterday, sleeping a lot, nursing reporting minimal interaction, very weak, quick to drift off back to sleep. Objective - Vital Signs Vital signs: Vital Signs Temp 98.5 F 09/10/22 12:00 Pulse 112 H 09/10/22 14:00 Resp 14 09/10/22 14:00 BP 115/64 09/10/22 14:00 Pulse Ox 94 L 09/10/22 14:00 FiO2 100 09/10/22 14:00 Intake & Output 09/09/22 09/10/22 09/10/22 18:59 06:59 18:59 Intake Total 691.594 1316 1580 Output Total 600 1205 451 Balance 82.667 -195 1129 Weight 48.3 kg 48.3 kg Intake: IV 291 211 5933 0.9 Normal Saline @ KVO 240 240 80 Ampicillin-Sulbactam 3 gm 100 In Sodium Chloride 0.9% 100 ml @ 200 mls/hr IVPB Q6HR [facility] Rx#:[id number] Anidulafungin 100 mg In 200 Sodium Chloride 0.9% 100 ml @ 84 mls/hr IVPB Q24H [facility] Rx#:[id number] Dextrose 5% in Water 1, 300 000 ml @ 75 mls/hr IV . [id number] [facility] Rx#:[id number] Piperacillin-Tazobactam 3 200 100 100 .375 gm In Sodium Chloride 0.9% 100 ml @ 25 mls/hr IVPB Q8HR [facility] Rx# :[id number] Potassium Chloride 10 meq 200 In Water For Injection 1 100ml.bag @ 100 mls/hr IVPB Q1H [facility] Rx#: [id number] Vancomycin 750 mg In 250 250 Sodium Chloride 0.9% 250 ml @ 125 mls/hr IVPB Q12H [facility] Rx#:[id number] Vancomycin 750 mg In 250 Sodium Chloride 0.9% 250 ml @ 125 mls/hr IVPB Q8H [facility] Rx#:[id number] Intake, IV Titration 12.667 Amount Diltiazem 125 mg In 12.667 Sodium Chloride 0.9% 100 ml @ 5 MG/HR 5 mls/hr IV .Q24H [facility] Rx#:[id number] Tube Feeding 30 330 240 Other 90 60 Output: Urine 600 1205 451 Other: Voiding Method Bedside Commode Bedpan Indwelling Catheter # Voids 1 # Bowel Movements 1 - Constitutional General appearance: Present: average body habitus (petite), no acute distress - Respiratory Details: bipap Respiratory: bilateral: rhonchi (expiratory) - Cardiovascular Details: mild tachycardia, regular rhythm Abnormal Heart Sounds: Absent: systolic murmur, diastolic murmur, rub, S3 Gallop, S4 Gallop, click, other - Gastrointestinal General gastrointestinal: Present: normal bowel sounds, soft - Musculoskeletal Musculoskeletal: Present: generalized weakness - Labs CBC & Chem 7: 09/10/22 04:57 09/10/22 04:57 Labs: Abnormal Lab Results - Last 24 Hours (Table) 09/10/22 09/10/22 Range/Units 04:57 04:57 WBC 44.7 H (3.8-10.6) k/uL RBC 2.46 L (3.80-5.40) m/uL Hgb 8.4 L (11.4-16.0) gm/dL Hct 26.9 L (34.0-46.0) % MCV 109.1 H (80.0-100.0) fL RDW 22.5 H (11.5-15.5) % Plt Count 88 L (150-450) k/uL Macrocytosis Marked A Sodium 148 H (137-145) mmol/L Chloride 109 H (98-107) mmol/L Carbon Dioxide 38 H (22-30) mmol/L Creatinine 0.34 L (0.52-1.04) mg/dL Glucose 142 H (74-99) mg/dL Calcium 7.8 L (8.4-10.2) mg/dL Microbiology - Last 24 Hours (Table) 09/07/22 11:05 Gram Stain - Final Sputum Sputum Culture - Final Methicillin resist S. aureus 09/06/22 15:40 Blood Culture - Preliminary Blood No Growth after 72 hours 09/06/22 15:40 Blood Culture - Preliminary Blood No Growth after 72 hours - Imaging and Cardiology Chest x-ray: report reviewed Assessment and Plan (1) Squamous cell carcinoma of tongue Current Visit: Yes Status: Acute Priority: Medium Code(s): C02.9 - MALIGNANT NEOPLASM OF TONGUE, UNSPECIFIED SNOMED Code(s): 294595544 (2) Respiratory failure Current Visit: Yes Status: Acute Priority: High Code(s): J96.90 - RESPIRATORY FAILURE, UNSP, UNSP W HYPOXIA OR HYPERCAPNIA SNOMED Code(s): 337430407 Plan: Squamous cell carcinoma of the tongue -Patient is currently on treatment with doublet chemotherapy and I/O therapy. -Current acute condition does not appear to be related directly to the patient's cancer or chemotherapy. Indirectly, suspicions for aspiration as a cause for pulmonary symptoms. Leukocytosis, bicytopenia. -Effects of chemotherapy. Macrocytic anemia, folate deficiency. Recommend start supplementation once patient able to swallow. Status post 1 unit of blood. Hemoglobin stable. Patient is not in need of transfusion at this time. Transfuse for hemoglobin less than 7. Transfuse for platelets less than 10,000. Unless patient is symptomatic. Leukocytosis secondary to infection, all neutrophilia. MRSA pneumonia -Pulmonary and ID following. Medications have been adjusted. attests: I seen and examined patient, performed H&P, developed impression and plan of care. Discussed with dictator. Agree with documentation. Dictated as a scribe.
[2022-09-10] MEDS ORDERED: ANIDULAFUNGIN 100 MG in SODIUM CHLORIDE 0.9% 100 ML IVPB SCH (16:00)
[2022-09-10 17:02] VITALS: BP 120/67; PULSE 121; RESP 12; TEMP 98.8
--- NOTE | 2022-09-10 17:06 | P.PN ---
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 On arrival to the ER vital signs showed tachycardia with a pulse of 126 initially her blood pressure was normal but quickly dropped to 73/48. Initial laboratory analysis showed white blood cell count 36.5, hemoglobin 6.6, platelets 133, INR 1.3, d-dimer 3.55, troponin 0.253, alkaline phosphatase 278, serum albumin 1.9, calcium 6.7. VBG showed a pH of 7.27 with a pCO2 of 64. Influenza A/B/RSV/COVID-[address] head showed large soft tissue mass in the right middle cranial fossa with extension into the right mandibular space was surrounding osseous structure. CTA of the chest showed severe airspace disease within the right upper lobe with the remainder of the lungs showing extensive disease and tree and bud appearance, possible early cavitary changes in the right aspect packs and right upper lobe. Correlate for atypical mycobacterial or fungal infection or extensive pneumonia. Scattered endobronchial opacifications/mucoid debris in the lower lobes. The ER she was given 2 L of normal saline but remained hypotensive and required levo. She was started on Vanco and Zosyn. One unit of packed red blood cells was ordered. Arrangements are made for admission to the ICU. She continued to do better and became awake. Oncology was consulted. They did recommend infectious disease consultation. She was also followed by pulmonary. Patient was seen and examined. No acute events overnight. Currently on BiPAP with settings 8/6 FiO2 of 100%. Case was discussed with her and family at bedside regarding her overall poor prognosis. Gen.: Ill appearing, obtunded, appears older than stated age. Derm: warm, dry Head: atraumatic, normocephalic, symmetric Eyes: EOMI, no lid lag, anicteric sclera Mouth: no lip lesion, mucus membranes moist, unable to speak effectively on BiPAP Cardiovascular: S1S2 reg, no murmur, positive DP pulse bilateral Lungs: Coarse breath sounds bilateral, no rhonchi, no rales , no accessory muscle use Abdominal: soft, nontender to palpation, no guarding, no appreciable organomegaly Ext: no gross muscle atrophy, no edema, no contractures Neuro: Unable to be done Psych: Obtunded #Pneumonia, possible gram-negative or MRSA related with recent chemo #Septic shock #Acute hypoxic respiratory failure #Acute metabolic encephalopathy, resolved #Pneumothorax CXR this morning shows small left apical PTX 1.8cm, worsening bilateral airspace disease R>L Concerns for possible aspiration event with recent vomiting Continue Vanco D2, Zosyn D3 Will start Eraxis to cover for PCP D1 Sputum culture pending Respiratory support - BiPAP 8/6 FiO2 of 100% Sepsis resolving BP 152/82, off Levophed since 09/07 Infectious disease recommendations appreciated Critical care and pulmonary recommendations appreciated Oncology on board #Hypertension BP 120/67 Continue metoprolol. 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 Family is open to palliative care consult. Possibly hospice. Objective - Vital Signs Vital signs: Vital Signs Temp 98.8 F 09/10/22 16:00 Pulse 121 H 09/10/22 17:00 Resp 12 09/10/22 17:00 BP 120/67 09/10/22 17:00 Pulse Ox 94 L 09/10/22 16:00 FiO2 100 09/10/22 17:00 Intake & Output 09/09/22 09/10/22 09/10/22 18:59 06:59 18:59 Intake Total 838.332 5124 1920 Output Total 600 1205 626 Balance 82.667 -195 1294 Weight 48.3 kg 48.3 kg Intake: IV 089 193 2860 0.9 Normal Saline @ KVO 240 240 80 Ampicillin-Sulbactam 3 gm 100 In Sodium Chloride 0.9% 100 ml @ 200 mls/hr IVPB Q6HR [facility] Rx#:[id number] Anidulafungin 100 mg In 200 100 Sodium Chloride 0.9% 100 ml @ 84 mls/hr IVPB Q24H [facility] Rx#:[id number] Dextrose 5% in Water 1, 450 000 ml @ 75 mls/hr IV . [id number] [facility] Rx#:[id number] Piperacillin-Tazobactam 3 200 100 100 .375 gm In Sodium Chloride 0.9% 100 ml @ 25 mls/hr IVPB Q8HR [facility] Rx# :[id number] Potassium Chloride 10 meq 200 In Water For Injection 1 100ml.bag @ 100 mls/hr IVPB Q1H [facility] Rx#: [id number] Vancomycin 750 mg In 250 250 Sodium Chloride 0.9% 250 ml @ 125 mls/hr IVPB Q12H [facility] Rx#:[id number] Vancomycin 750 mg In 250 Sodium Chloride 0.9% 250 ml @ 125 mls/hr IVPB Q8H [facility] Rx#:[id number] Intake, IV Titration 12.667 Amount Diltiazem 125 mg In 12.667 Sodium Chloride 0.9% 100 ml @ 5 MG/HR 5 mls/hr IV .Q24H [facility] Rx#:[id number] Tube Feeding 30 330 300 Other 90 90 Output: Urine 600 1205 626 Other: Voiding Method Bedside Commode Bedpan Indwelling Catheter # Voids 1 # Bowel Movements 1 - Labs CBC & Chem 7: 09/10/22 04:57 09/10/22 04:57 Labs: Abnormal Lab Results - Last 24 Hours (Table) 09/10/22 09/10/22 Range/Units 04:57 04:57 WBC 44.7 H (3.8-10.6) k/uL RBC 2.46 L (3.80-5.40) m/uL Hgb 8.4 L (11.4-16.0) gm/dL Hct 26.9 L (34.0-46.0) % MCV 109.1 H (80.0-100.0) fL RDW 22.5 H (11.5-15.5) % Plt Count 88 L (150-450) k/uL Macrocytosis Marked A Sodium 148 H (137-145) mmol/L Chloride 109 H (98-107) mmol/L Carbon Dioxide 38 H (22-30) mmol/L Creatinine 0.34 L (0.52-1.04) mg/dL Glucose 142 H (74-99) mg/dL Calcium 7.8 L (8.4-10.2) mg/dL Microbiology - Last 24 Hours (Table) 09/07/22 11:05 Gram Stain - Final Sputum Sputum Culture - Final Methicillin resist S. aureus 09/06/22 15:40 Blood Culture - Preliminary Blood No Growth after 72 hours 09/06/22 15:40 Blood Culture - Preliminary Blood No Growth after 72 hours
[2022-09-10] MEDS ORDERED: MORPHINE SULFATE 4 MG/ML SYRINGE IVP ONE (17:59)
[2022-09-10] MEDS ORDERED: MORPHINE SULFATE 2 MG/ML SYRINGE IV PRN (17:59)
[2022-09-10] MEDS ORDERED: MORPHINE SULFATE 4 MG/ML SYRINGE IV PRN (17:59)
[2022-09-10] MEDS ORDERED: ATROPINE OPHTH SOLN 1% 5ML BTL SUBLINGUAL PRN (18:01)
[2022-09-10] MEDS ORDERED: SCOPOLAMINE 1 MG/72 HR PATCH TRANSDERM SCH (18:30)
[2022-09-10] MEDS ORDERED: MORPHINE SULFATE (100 MG/2 ML) 100 MG in SODIUM CHLORIDE 0.9% 100 ML IV SCH (18:30)
--- NOTE | 2022-09-10 18:48 | P.PN ---
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 On today's evaluation that is 09/10/2022, the patient did have a low-grade fever 100.2F this morning the patient is afebrile since then the patient is Dependent according 100% FiO2 patient remains to be lethargic, unable to avoid any history no vomiting or diarrhea has been reported by the nursing staff Objective - Vital Signs Vital signs: Vital Signs Temp 100.2 F H 09/10/22 08:00 Pulse 107 H 09/10/22 11:03 Resp 19 09/10/22 11:00 BP 102/60 09/10/22 11:00 Pulse Ox 95 09/10/22 10:00 FiO2 100 09/10/22 11:00 Intake & Output 09/09/22 09/10/22 09/10/22 18:59 06:59 18:59 Intake Total 272.199 6409 885 Output Total 600 1205 240 Balance 82.667 -195 645 Weight 48.3 kg 48.3 kg Intake: IV 640 590 705 0.9 Normal Saline @ KVO 240 240 80 Anidulafungin 100 mg In 200 Sodium Chloride 0.9% 100 ml @ 84 mls/hr IVPB Q24H [facility] Rx#:[id number] Dextrose 5% in Water 1, 75 000 ml @ 75 mls/hr IV . [id number] [facility] Rx#:[id number] Piperacillin-Tazobactam 3 200 100 100 .375 gm In Sodium Chloride 0.9% 100 ml @ 25 mls/hr IVPB Q8HR [facility] Rx# :[id number] Potassium Chloride 10 meq 200 In Water For Injection 1 100ml.bag @ 100 mls/hr IVPB Q1H [facility] Rx#: [id number] Vancomycin 750 mg In 250 250 Sodium Chloride 0.9% 250 ml @ 125 mls/hr IVPB Q12H [facility] Rx#:[id number] Intake, IV Titration 12.667 Amount Diltiazem 125 mg In 12.667 Sodium Chloride 0.9% 100 ml @ 5 MG/HR 5 mls/hr IV .Q24H [facility] Rx#:[id number] Tube Feeding 30 330 150 Other 90 30 Output: Urine 600 1205 240 Other: Voiding Method Bedside Commode Bedpan # Voids 1 # Bowel Movements 1 - Exam GENERAL DESCRIPTION: Middle-aged female lying in bed in no distress RESPIRATORY SYSTEM: Unlabored breathing , coarse breath sounds bilaterally HEART: S1 S2 regular rate and rhythm , ABDOMEN: Soft , no tenderness EXTREMITIES: No edema feet - Labs CBC & Chem 7: 09/10/22 04:57 09/10/22 04:57 Labs: Abnormal Lab Results - Last 24 Hours (Table) 09/10/22 09/10/22 Range/Units 04:57 04:57 WBC 44.7 H (3.8-10.6) k/uL RBC 2.46 L (3.80-5.40) m/uL Hgb 8.4 L (11.4-16.0) gm/dL Hct 26.9 L (34.0-46.0) % MCV 109.1 H (80.0-100.0) fL RDW 22.5 H (11.5-15.5) % Plt Count 88 L (150-450) k/uL Macrocytosis Marked A Sodium 148 H (137-145) mmol/L Chloride 109 H (98-107) mmol/L Carbon Dioxide 38 H (22-30) mmol/L Creatinine 0.34 L (0.52-1.04) mg/dL Glucose 142 H (74-99) mg/dL Calcium 7.8 L (8.4-10.2) mg/dL Microbiology - Last 24 Hours (Table) 09/07/22 11:05 Gram Stain - Final Sputum Sputum Culture - Final Methicillin resist S. aureus 09/06/22 15:40 Blood Culture - Preliminary Blood No Growth after 72 hours 09/06/22 15:40 Blood Culture - Preliminary Blood No Growth after 72 hours Assessment and Plan (1) MRSA pneumonia Current Visit: Yes Status: Acute Code(s): J15.212 - PNEUMONIA DUE TO METHICILLIN RESISTANT STAPHYLOCOCCUS AUREUS SNOMED Code(s): 932311136901003 Plan: 1patient presented to hospital with weakness mental status changes with component of sepsis as the patient did have elevated white count hypotension requiring pressor support with extensive pneumonia concern for possible aspiration/bacterial pneumonia such as MRSA or pseudomonas, sputum has now been finalized with MRSA blood culture has been negative 2patient to continue with vancomycin pharmacy to dose target trough of 15 however discontinue Zosyn to decrease risk of nephrotoxicity Time with Patient: Less than 30
--- NOTE | 2022-09-14 07:59 | P.DS ---
Providers Date of admission: 09/06/22 14:52 Expected date of discharge: 09/14/22 Attending physician: Cris Osman DO Consults: 09/06/22 14:52 Consult Physician Stat Consulting Provider: Marek Mcdaniel Consult Reason/Comments: resp failure, hypotension Do you want consulting provider notified?: Yes 09/06/22 18:40 Consult Physician Routine Consulting Provider: Sadiq Pulido Consult Reason/Comments: squamous cell cancer Do you want consulting provider notified?: Yes 09/08/22 17:22 Consult Physician Routine Consulting Provider: Lemuel Amor Consult Reason/Comments: severe PNA, possible fungal Do you want consulting provider notified?: Yes 09/09/22 07:26 Consult Physician Stat Consulting Provider: Octaviano Rosas Consult Reason/Comments: SVT Do you want consulting provider notified?: Yes 09/10/22 14:09 Consult to Palliative Care Routine Consulting Provider: Michelle Ramos Consult Reason/Comments: GOC Do you want consulting provider notified?: Yes Primary care physician: Stated None Hospital Course: Patient is a 62-year-old female with a history of 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 On arrival to the ER vital signs showed tachycardia with a pulse of 126 initially her blood pressure was normal but quickly dropped to 73/48. Initial laboratory analysis showed white blood cell count 36.5, hemoglobin 6.6, platelets 133, INR 1.3, d-dimer 3.55, troponin 0.253, alkaline phosphatase 278, serum albumin 1.9, calcium 6.7. VBG showed a pH of 7.27 with a pCO2 of 64. Influenza A/B/RSV/COVID-[address] head showed large soft tissue mass in the right middle cranial fossa with extension into the right mandibular space was surrounding osseous structure. CTA of the chest showed severe airspace disease within the right upper lobe with the remainder of the lungs showing extensive disease and tree and bud appearance, possible early cavitary changes in the right aspect packs and right upper lobe. Correlate for atypical mycobacterial or fungal infection or extensive pneumonia. Scattered endobronchial opacifications/mucoid debris in the lower lobes. The ER she was given 2 L of normal saline but remained hypotensive and required levo. She was started on Vanco and Zosyn. One unit of packed red blood cells was ordered. Arrangements are made for admission to the ICU. She continued to do better and became awake. Oncology was consulted. They did recommend infectious disease consultation. She was also followed by pulmonary. Levo was able to be weaned off. She was continued on vancomycin and Zosyn. Eraxis was added for fungal coverage. She required continuous BiPAP during this hospitalization. Subsequent chest x-ray showed small apical pneumothorax of 1.8 cm with worsening bilateral airspace disease. Patient's clinical condition continued to worsen. Extensive discussion was had with the family regarding her prognosis. She was made comfort care on 09/10/2022. Patient on 09/10/2022 at 7:16. Pertinent studies include brain CT, chest x-ray, echocardiogram, CT chest. Gen.: Ill appearing, obtunded, appears older than stated age. Derm: warm, dry Head: atraumatic, normocephalic, symmetric Eyes: EOMI, no lid lag, anicteric sclera Mouth: no lip lesion, mucus membranes moist, unable to speak effectively on BiPAP Cardiovascular: S1S2 reg, no murmur, positive DP pulse bilateral Lungs: Coarse breath sounds bilateral, no rhonchi, no rales , no accessory mu scle use Abdominal: soft, nontender to palpation, no guarding, no appreciable organomegaly Ext: no gross muscle atrophy, no edema, no contractures Neuro: Unable to be done Psych: Obtunded Discharge diagnosis: #Pneumonia, possible gram-negative or MRSA related with recent chemo #Septic shock #Acute hypoxic respiratory failure #Acute metabolic encephalopathy, resolved #Pneumothorax #Hypertension #Hypernatremia #Macrocytic anemia #Thrombocytopenia #Severe protein calorie malnutrition #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 Patient Condition at Discharge: Critical Plan - Discharge Summary Discharge Rx Participant: Yes New Discharge Prescriptions: No Action Gabapentin [Gabapentin Oral Soln] 250 mg PEG/G-TUBE TID Famotidine [Pepcid] 20 mg PEG/G-TUBE DAILY PRN PRN Reason: acid reflux OLANZapine ODT [ZyPREXA ZYDIS] 10 mg PEG/G-TUBE DIRECTED Metoclopramide [Reglan] 10 mg PEG/G-TUBE Q6H PRN PRN Reason: Nausea Oxycodone 5mg/5ml 15 mg PEG/G-TUBE Q4H Methadone HCl [Methadone Intensol] 10 mg PEG/G-TUBE Q8H Loperamide HCl [Loperamide HCl Oral Susp] 1.33 mg PEG/G-TUBE Q6H PRN PRN Reason: Diarrhea Acetaminophen Oral Susp [Tylenol] 480 mg PEG/G-TUBE Q4H Discharge Medication List Acetaminophen Oral Susp [Tylenol] 480 mg PEG/G-TUBE Q4H 09/06/22 [History] Famotidine [Pepcid] 20 mg PEG/G-TUBE DAILY PRN 09/06/22 [History] Gabapentin [Gabapentin Oral Soln] 250 mg PEG/G-TUBE TID 09/06/22 [History] Loperamide HCl [Loperamide HCl Oral Susp] 1.33 mg PEG/G-TUBE Q6H PRN 09/06/22 [History] Methadone HCl [Methadone Intensol] 10 mg PEG/G-TUBE Q8H 09/06/22 [History] Metoclopramide [Reglan] 10 mg PEG/G-TUBE Q6H PRN 09/06/22 [History] OLANZapine ODT [ZyPREXA ZYDIS] 10 mg PEG/G-TUBE DIRECTED 09/06/22 [History] Oxycodone 5mg/5ml 15 mg PEG/G-TUBE Q4H 09/06/22 [History] Follow up Appointment(s)/Referral(s): None,Stated [Primary Care Provider] - 1-2 days Discharge Disposition: - Preliminary Cause of Preliminary Cause of : MRSA PNA
== END 2022-09-10 20:18 | disposition expired | DRG 871 ==
LOC: EC 10:48 → 2SICU 14:52
PROVIDERS: ADMIT Internal Medicine; ATTEND Internal Medicine
PROC: 3E043XZ Introduction of Vasopressor into Central Vein, Percutaneous Approach (ICD-10-PCS; principal; 2022-09-06)
PROC: 30233N1 Transfusion of Nonautologous Red Blood Cells into Peripheral Vein, Percutaneous Approach (ICD-10-PCS; 2022-09-06)
PROC: 5A09457 Assistance with Respiratory Ventilation, 24-96 Consecutive Hours, Continuous Positive Airway Pressure (ICD-10-PCS; 2022-09-09)
DX: A41.02 Sepsis due to Methicillin resistant Staphylococcus aureus (principal); E43 Unspecified severe protein-calorie malnutrition; J96.01 Acute respiratory failure with hypoxia; R65.21 Severe sepsis with septic shock; G93.41 Metabolic encephalopathy; J15.212 Pneumonia due to Methicillin resistant Staphylococcus aureus; I21.A1 Myocardial infarction type 2; E87.29 Other acidosis; C79.49 Secondary malignant neoplasm of other parts of nervous system; Z43.1 Encounter for attention to gastrostomy; E87.0 Hyperosmolality and hypernatremia; I47.1 Supraventricular tachycardia; J93.83 Other pneumothorax; C01 Malignant neoplasm of base of tongue; F10.21 Alcohol dependence, in remission; Z66 Do not resuscitate; Z51.5 Encounter for palliative care; Z20.822 Contact with and (suspected) exposure to COVID-19; Z28.310 Unvaccinated for COVID-19; E88.09 Other disorders of plasma-protein metabolism, not elsewhere classified; D69.59 Other secondary thrombocytopenia; D64.81 Anemia due to antineoplastic chemotherapy; G51.0 Bell's palsy; D53.9 Nutritional anemia, unspecified; T45.1X5A Adverse effect of antineoplastic and immunosuppressive drugs, initial encounter; I10 Essential (primary) hypertension; H05.20 Unspecified exophthalmos; K21.9 Gastro-esophageal reflux disease without esophagitis; K59.00 Constipation, unspecified; H91.90 Unspecified hearing loss, unspecified ear; Z79.891 Long term (current) use of opiate analgesic; Z79.899 Other long term (current) drug therapy; Z87.891 Personal history of nicotine dependence; E83.42 Hypomagnesemia; F41.9 Anxiety disorder, unspecified; G47.00 Insomnia, unspecified; G89.29 Other chronic pain
CPT/HCPCS: 36415; 70450; 71045; 71046; 71275; 80048; 80053; 80202; 82607; 82728; 82746; 82803; 83010; 83540; 83550; 83605; 83615; 83735; 84100; 84132; 84443; 84484; 85025; 85027; 85045; 85379; 85610; 85730; 86850; 86900; 86901; 86920; 87040; 87070; 87077; 87186; 87205; 87449; 87636; 93005; 93306; 94640; 94660; 96361; 96365; 96366; 96368; 99291